=== PATIENT | female | born 1955 | race Caucasian/White ===

== ENCOUNTER 2018-06-07 22:27 | Emergency (ER) | payer OTHER ==
[~2018-06-07] VITALS: Ht 157.5 cm; Wt 90.7 kg
[~2018-06-07 22:27] MED LIST: CYCLOBENZAPRINE5 MG PO; TYLENOL WITH C1 EACH PO
[2018-06-07 22:41] LABS: BASOPHILS % 0.7 % (0.0-1.0); EOSINOPHILS # (AUTO) 0.1 (0.0-0.4); EOSINOPHILS % 2.7 % (0.0-6.0); HEMATOCRIT 39.1 % (34.2-44.1); HEMOGLOBIN 12.8 g/dL (12.0-16.0); LYMPHOCYTES # (AUTO) 1.4 (1.0-3.2); LYMPHOCYTES % 34.8 % (18.0-39.1); MEAN CORPUSCULAR HEMOGLOBIN 28.7 pg (28-32); MEAN CORPUSCULAR HGB CONC 32.7 g/dL (31-35); MEAN CORPUSCULAR VOLUME 87.7 fL (81-99); MONOCYTES # (AUTO) 0.2 (0.2-0.8); MONOCYTES % 5.8 % (4.4-11.3); NEUTROPHILS # (AUTO) 2.3 (2.1-6.9); NEUTROPHILS % 55.5 % (38.7-80.0); PLATELET COUNT 198 x10e3/uL (140-360); RED BLOOD COUNT 4.46 x10e6/uL (3.6-5.1); RED CELL DISTRIBUTION WIDTH 13.6 % (11.7-14.4)
[2018-06-07 22:57] LABS: ALBUMIN/GLOBULIN RATIO 1.1 (0.8-2.0); ANION GAP 18.3 mmol/L (8-16); CALCIUM 9.5 mg/dL (8.4-10.2); CREATININE, SERUM 1.49 mg/dL (0.57-1.11); POTASSIUM 4.3 mmol/L (3.5-5.1)
[2018-06-07] MEDS ORDERED: ZOFRAN4 MG SL (23:00)
--- NOTE | 2018-06-08 01:33 | NUR ---
PT REMAINS AAOX3, RESP EVEN AND UNLABORED, NAD NOTED; BG REASSESSED, 322, ER AWARE; CONTINUE TO MONITOR PT; PT/PTS SPOUSE UPDATED ON STATUS, DENIES ANY NEEDS OR COMPLAINTS AT THIS TIME
--- NOTE | 2018-06-08 04:35 | NUR ---
BS 102. INFORMED. ORDERED TO GIVE SNACK AT THIS TIME. APPLE JUICE, PUDDING AND APPLE SAUCE PROVIDED. PT AWAKE AND ALERT. PT EATING SNACK AT THIS TIME.
== END 2018-06-08 05:51 | disposition home or self-care (01) ==
LOC: ER 22:27
DX: T38.3X1A Poisoning by insulin and oral hypoglycemic [antidiabetic] drugs, accidental (unintentional), initial encounter (principal); E11.65 Type 2 diabetes mellitus with hyperglycemia; I10 Essential (primary) hypertension; E78.5 Hyperlipidemia, unspecified
CPT/HCPCS: 36415; 80053; 82948; 85025; 99283

== ENCOUNTER 2019-04-17 23:03 | Inpatient (IN) | payer OTHER ==
[~2019-04-17] VITALS: Ht 157.5 cm; Wt 78.5 kg
[~2019-04-17 23:03] MED LIST changes: +ZOFRAN4 MG SL
[2019-04-17] MEDS ORDERED: SODIUM CHLORIDE 0.9% 1000ML 1,000 ML IV STA (23:47)
[2019-04-18] VITALS (7 sets, daily range): BP systolic 117–158; BP diastolic 58–79
[2019-04-18] MEDS ORDERED: ONDANSETRON HCL INJ 2MG/ML 2ML 2 MG/ML VIAL ONE (00:18)
[2019-04-18] MEDS ORDERED: ONDANSETRON HCL INJ 2MG/ML 2ML 2 MG/ML VIAL IV STA (00:29)
[2019-04-18 00:52] LABS: BASOPHILS % 0.2 % (0.0-1.0); EOSINOPHILS # (AUTO) 0.1 (0.0-0.4); EOSINOPHILS % 2.1 % (0.0-6.0); HEMATOCRIT 40.7 % (34.2-44.1); HEMOGLOBIN 13.7 g/dL (12.0-16.0); LYMPHOCYTES # (AUTO) 0.3 (1.0-3.2); LYMPHOCYTES % 4.7 % (18.0-39.1); MEAN CORPUSCULAR HEMOGLOBIN 29.1 pg (28-32); MEAN CORPUSCULAR HGB CONC 33.7 g/dL (31-35); MEAN CORPUSCULAR VOLUME 86.6 fL (81-99); MONOCYTES # (AUTO) 0.3 (0.2-0.8); MONOCYTES % 4.7 % (4.4-11.3); NEUTROPHILS # (AUTO) 5.4 (2.1-6.9); PLATELET COUNT 188 x10e3/uL (140-360); RED CELL DISTRIBUTION WIDTH 12.2 % (11.7-14.4)
[2019-04-18 00:57] LABS: INR 0.86; PROTHROMBIN TIME 12.2 seconds (11.9-14.5)
[2019-04-18 00:58] LABS: PARTIAL THROMBOPLASTIN TIME 29.1 seconds (23.8-35.5)
[2019-04-18 01:13] LABS: ALANINE AMINOTRANSFERASE 8 IU/L (0-55); ALBUMIN 3.9 g/dL (3.5-5.0); ALBUMIN/GLOBULIN RATIO 1.1 (0.8-2.0); ALKALINE PHOSPHATASE 111 IU/L (40-150); ANION GAP 19.3 mmol/L (8-16); BLOOD UREA NITROGEN 17 mg/dL (7-26); BUN/CREATININE RATIO 11 (6-25); CALCIUM 9.9 mg/dL (8.4-10.2); CARBON DIOXIDE 27 mmol/L (22-29); CHLORIDE 92 mmol/L (98-107); CREATINE KINASE 20 IU/L (29-168); CREATININE, SERUM 1.59 mg/dL (0.57-1.11); EST GLOMERULAR FILTRATION RATE 33 ML/MIN (60-); MAGNESIUM 1.4 MG/DL (1.3-2.1); POTASSIUM 3.3 mmol/L (3.5-5.1); SODIUM 135 mmol/L (136-145)
--- NOTE | 2019-04-18 01:13 | NUR ---
DR. TORRES NOTIFIED AND AWARE OF CRITICAL LAB VALUE; LACTIC 5.2.
[2019-04-18] MEDS ORDERED: SODIUM CHLORIDE 0.9% 1000ML 1,000 ML IV STA (01:15)
[2019-04-18 01:23] LABS: GLUCOSE 686 mg/dL (74-118)
[2019-04-18 01:44] LABS: BILIRUBIN,URINE NEGATIVE (NEGATIVE); CLARITY,URINE CLEAR (CLEAR); COLOR,URINE YELLOW (YELLOW); KETONES,URINE NEGATIVE (NEGATIVE); LEUKOCYTE ESTERASE ,URINE NEGATIVE (NEGATIVE); NITRITE,URINE POSITIVE (NEGATIVE); PROTEIN,URINE DIPSTICK NEGATIVE (NEGATIVE); URINE UROBILINOGEN 0.2 mg/dL (0.2 - 1)
[2019-04-18 01:49] LABS: ABG PH 7.48 (7.31-7.41)
[2019-04-18 01:50] LABS: ABG HCO3 25 mmol/L (23-28); ABG PCO2 33 mmHg (41-51); ABG PO2 106 mmHg (80-105)
--- NOTE | 2019-04-18 01:50 | Diagnostic Imaging Report ---
EXAMINATION: CHEST SINGLE (PORTABLE) INDICATION: Altered mental status. COMPARISON: None FINDINGS: TUBES and LINES: None. LUNGS: Lungs are moderately inflated. There is no evidence of pneumonia or pulmonary edema. PLEURA: No pleural effusion or pneumothorax. HEART AND MEDIASTINUM: The cardiomediastinal silhouette is unremarkable. BONES AND SOFT TISSUES: No acute osseous abnormality. Partially seen cervical spine fixation hardware. UPPER ABDOMEN: No free air under the diaphragm. IMPRESSION: No acute radiographic abnormality. Signed by: Dr. Gonzalo Velazquez MD on 04/18/2019 1:46 AM
[2019-04-18] MEDS: CEFEPIME 2 GM/NS 0.9% 100 ML 100 ML IV SCH ×2 (02:00→13:30)
[2019-04-18 02:27] LABS: WBC,URINE (MAN) 21-50 /HPF (0-5)
[2019-04-18 02:28] LABS: BACTERIA,URINE MANY /HPF; EPITHELIAL CELLS,URINE MODERATE /LPF
[2019-04-18] MEDS ORDERED: INSULIN REGULAR, HUMAN 100 UNIT/1 ML 3ML VIAL IV ONE (02:30)
--- NOTE | 2019-04-18 02:32 | Diagnostic Imaging Report ---
EXAMINATION: Head CT without contrast. HISTORY:Altered mental status. COMPARISON:None. TECHNIQUE: Multidetector axial images were obtained from the foramen magnum to the vertex without contrast. The images were reconstructed using brain and bone algorithms. Thin section brain images were reformatted into coronal and sagittal planes. Dose modulation, iterative reconstruction, and/or weight based adjustment of the mA/kV was utilized to reduce the radiation dose to as low as reasonably achievable. Intravenous contrast: None IMAGE QUALITY: Acceptable. FINDINGS: Skull/scalp: No lytic or blastic. lesions. No surgical changes. Parenchyma: Nonspecific few, scattered supratentorial white matter hypodensity are likely related to small vessel ischemic changes. No acute hemorrhage, mass or acute major vascular territorial infarct. Arteries: No density suggestive of thrombosis. Atherosclerotic calcification in bilateral carotid siphon and V4 segment of the vertebral arteries. Dural sinuses: No abnormal density suggestive of thrombosis. Ventricles: No hydrocephalus or displacement. Extra-axial spaces: No abnormal density. Brain volume: Normal for age. Craniocervical junction: No mass, Chiari malformation, or basilar invagination. Sella: No mass. Paranasal/mastoid sinuses: Imaged portions unremarkable. IMPRESSION: No acute intracranial abnormality. Mild supratentorial white matter microvascular ischemic changes. Signed by: Dr. Skye Harris M.D. on 04/18/2019 2:29 AM
[2019-04-18 03:12] LABS: B-TYPE NATRIURETIC PEPTIDE2 43.9 pg/mL (0-100)
[2019-04-18] MEDS ORDERED: DEXTROSE 50% SYRINGE 50 ML IV PRN (03:45)
[2019-04-18] MEDS ORDERED: KCL 20MEQ/.9 SOD CHL 1,000 ML IV ONE (03:45)
--- OUTSIDE RECORDS SUMMARY | 2019-04-18 03:54 | XMS REPORT ---
Author [facility] Address Unknown Phone Unavailable Care Team Providers Care Field Sales Agent Name Role Phone Hernesto TORRES Unavailable Unavailable Problems This patient has no known problems. Allergies, Adverse Reactions, Alerts This patient has no known allergies or adverse reactions. Medications This patient has no known medications. Results Test Description Test Time Test Comments Text Results Atomic Results Result Comments CT BRAIN WO 2019-04-18 02:26:00 [facility] [address] [address] Patient Name: PAOLA STILES MR #: [id number] : 1955 Age/Sex: 64/F Req #: [id number] Adm Physician: Ordered by: YOEL TORRES MD Report #: [id number] Location: ER Room/Bed: Procedure: [id number] CT/CT BRAIN WO Exam Date: 04/18/19 Exam Time: 0120 REPORT STATUS: Signed EXAMINATION: Head CT without contrast. HISTORY:Altered mental status. COMPARISON:None. TECHNIQUE: Multidetector axial images were obtained from the foramen magnum to the vertex without contrast. The images were reconstructed using brain and bone algorithms. Thin section brain images were reformatted into coronal and sagittal planes. Dose modulation, iterative reconstruction, and/or weight based adjustment of the mA/kV was utilized to reduce the radiation dose to as low as reasonably achievable. Intravenous contrast: None IMAGE QUALITY: Acceptable. FINDINGS: Skull/scalp: No lytic or blastic. lesions. No surgical changes. Parenchyma: Nonspecific few, scattered supratentorial white matter hypodensity are likely related to small vessel ischemic changes. No acute hemorrhage, mass or acute major vascular territorial infarct. Arteries: No density suggestive of thrombosis. Atherosclerotic calcification in bilateral carotid siphon and V4 segment of the vertebral arteries. Dural sinuses: No abnormal density suggestive of thrombosis. Ventricles: No hydrocephalus or displacement. Extra-axial spaces: No abnormal density. Brain volume: Normal for age. Craniocervical junction: No mass, Chiari malformation, or basilar invagination. Sella: No mass. Paranasal/mastoid sinuses: Imaged portions unremarkable. IMPRESSION: No acute intracranial abnormality. Mild supratentorial white matter microvascular ischemic changes. Signed by: Dr. Skye Harris M.D. on 04/18/2019 2:29 AM Dictated By: SKYE HARRIS MD 8 Transcribed By: ELDER on 04/18/19228 COPY TO: YOEL TORRES MD CHEST SINGLE (PORTABLE) 2019-04-18 01:45:00 [address] [address] Patient Name: PAOLA STILES MR #: [id number] : 1955 Age/Sex: 64/F Req #: [id number] Adm Physician: Ordered by: YOEL TORRES MD Report #: [id number] Location: ER Room/Bed: Procedure: [id number] DX/CHEST SINGLE (PORTABLE) Exam Date: 04/18/19 Exam Time: 0120 REPORT STATUS: Signed EXAMINATION: CHEST SINGLE (PORTABLE) INDICAT ION: Altered mental status. COMPARISON: None FINDINGS: TUBES and LINES: None. LUNGS: Lungs are moderately inflated. There is no evidence of pneumonia or pulmonary edema. PLEURA: No pleural effusion or pneumothorax. HEART AND MEDIASTINUM: The cardiomediastinal silhouette is unremarkable. BONES AND SOFT TISSUES: No acute osseous abnormality. Partially seen cervical spine fixation hardware. UPPER ABDOMEN: No free air under the diaphragm. IMPRESSION: No acute radiographic abnormality. Signed by: Dr. Mp Stone MD on 04/18/2019 1:46 AM Dictated By: MP STONE MD 5 Transcribed By: ELDER on 04/18/19145 COPY TO: YOEL TORRES MD
--- NOTE | 2019-04-18 05:09 | NUR ---
RECEIVED PATIENT FROM ED. PATIENT A&OX3. HEADACHE REPORTED 03/19. LUNG SOUNDS CLEAR. BOWEL SOUNDS ACTIVE, HAD BM WHEN GOT TO ROOM. PATIENT HAS L BKA, PERSONAL WHEELCHAIR AT BEDSIDE, PATIENT CAN TRANSFER INDEPENDENTLY. L AC 20G IV ASYMPTOMATIC, INTACT, AND PATENT, RUNNING NS WITH 20 MEQ OF KCL AT 125 ML/HR. DAUGHTER AT BEDSIDE. NO S&S OF DISTRESS NOTED. BED LOCKED IN LOWEST POSITION, SIDE RAILS UPX2, CALL LIGHT IN REACH.
[2019-04-18] MEDS ORDERED: INFLUENZA VIRUS VAC SPLIT INJ 0.5 ML SYR IM SCH (05:37)
[2019-04-18 07:20] LABS: CREATINE KINASE 13 IU/L (29-168)
[2019-04-18] MEDS: ONDANSETRON HCL INJ 2MG/ML 2ML 2 MG/ML VIAL IV PRN (07:25)
[2019-04-18] MEDS: INSULIN LISPRO 100 UNIT/1 ML 3ML VIAL SQ SCH ×5 (07:30→20:34)
--- NOTE | 2019-04-18 07:33 | NUR ---
MEDICATED PER MD ORDER FOR NAUSEA, PT C/O HEADACHE SINCE ARRIVAL TO FLOOR, NO MEDICATION ON EMAR, TELEPHONED LAKISHA VALLEJO, ORDERS NOTED
[2019-04-18] MEDS ORDERED: ACETAMINOPHEN 325 MG TAB ONE (07:44)
[2019-04-18] MEDS: ACETAMINOPHEN 325 MG TAB PO PRN (07:50)
--- NOTE | 2019-04-18 09:53 | NUR ---
PT STATES SHE CANNOT REMEMBER WHAT HOME MEDICATIONS SHE TAKES, FAMILY IS BRINGING A LIST WHEN THEY COME BACK TO HOSPITAL, PT REPORTS HEADACHE NOT IMPROVED, REFUSED INSULIN AT THIS TIME, DUE TO NAUSEA WHICH CAUSED HER TO NOT EAT MUCH BREAKFAST, WITH STANDBY ASSIST AND USE OF PERSONAL WC, PT OOB TO BR, CALL STRING WITHIN REACH
[2019-04-18] MEDS ORDERED: ACETAMINOPHEN 325 MG TAB PO PRN (10:15)
[2019-04-18] MEDS ORDERED: HYDRALAZINE HCL 20 MG/ML VIAL IV PRN (10:15)
[2019-04-18] MEDS ORDERED: MELATONIN 5 MG TABLET PO PRN ×2 (10:15→10:45)
[2019-04-18] MEDS ORDERED: SODIUM CHLORIDE 0.9% 1000ML 1,000 ML IV SCH (10:30)
--- NOTE | 2019-04-18 10:30 | NUR ---
GENEVIEVE, MANAGER OF MANUFACTURING WITH MD GRIFFITH INTO SEE PT, DISCUSSED POC
[2019-04-18] MEDS ORDERED: LOSARTAN POTAS100 MG PO (10:42)
[2019-04-18] MEDS ORDERED: ACETAMIN/BUTALBITAL/CAFFEINE TAB PO ONE (11:00)
[2019-04-18] MEDS: LOSARTAN POTASSIUM 25 MG TAB PO SCH (11:16)
--- NOTE | 2019-04-18 16:13 | NUR ---
MD BATES INTO SEE PT, DISCUSSED POC, MD BATES EDUCATED PT THAT FAMILY IS TO BRING IN HOME INSULIN AND MAY CHANGE TOMORROW BUT TO CONTINUE SS FOR NOW
--- NOTE | 2019-04-18 16:18 | Consultation ---
DATE OF CONSULTATION: 04/18/2019 Endocrine Consultation This is a patient of Dr. Cheney. Thank you very much for referring this patient. HISTORY OF PRESENT ILLNESS: This is a 64-year-old female, who is very well known to me from her previous followups. The patient has diabetes mellitus type 2 for almost 20 years and she is taking U-500 insulin, 50, 50, and 20 with each meal. She is on U-500 insulin pen. She has below-knee amputation on the left side. She also has history of hypertension. The patient was doing all right. She started having some nausea, vomiting, and at the time of admission, her blood sugar was 686, and anion gap was 19.3. PHYSICAL EXAMINATION: GENERAL: Today, the patient is alert, awake, little bit apprehensive. VITAL SIGNS: Heart rate is around 80, blood pressure is 130/80 mmHg. HEENT: Essentially unremarkable. Thyroid is palpable. Clinically, she is near euthyroid. CHEST: Bilateral vesicular breathing. No rales. CARDIOVASCULAR: First and second heart sounds. There is no 3rd or 4th heart sounds. There is ejection systolic murmur grade 2/6. 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 She is status post below-knee amputation on the left side. CLINICAL IMPRESSION: Diabetes mellitus type 2, uncontrolled with complication, diabetic ketoacidosis, dehydration, status post below knee amputation, and hypertension. PLAN: At this time is to get her back on U-500 insulin for now since her oral intake is low. Monitor the blood sugars closely. Thanks again for referring this patient. I will be following this patient with you. MD SAI Vega/KOLE /[id number] TALISHA
[2019-04-18] MEDS ORDERED: LIPITOR40 MG PO (16:20)
[2019-04-18] MEDS ORDERED: METFORMIN HCL500 MG PO (16:20)
[2019-04-18] MEDS ORDERED: METHOCARBAMOL750 MG PO (16:20)
[2019-04-18] MEDS ORDERED: OMEPRAZOLE40 MG PO (16:20)
[2019-04-18] MEDS ORDERED: SERTRALINE HCL50 MG PO (16:20)
[2019-04-18] MEDS ORDERED: ASPIR 8181 MG PO (16:20)
[2019-04-18] MEDS ORDERED: GABAPENTIN100 MG PO (16:20)
[2019-04-18] MEDS ORDERED: LASIX20 MG PO (16:20)
[2019-04-18 16:24] LABS: CREATINE KINASE 16 IU/L (29-168)
[2019-04-18] MEDS ORDERED: METHOCARBAMOL 500 MG TAB PO PRN (16:30)
[2019-04-18] MEDS: FAMOTIDINE 20 MG TAB PO SCH (17:30)
--- NOTE | 2019-04-18 19:00 | NUR ---
RECEIVED PATIENT IN BEDSIDE REPORT. PATIENT RESTING IN BED AT THIS TIME, FAMILY MEMBERS PRESENT. REPORTS HEADACHE IS 4/10, WILL MEDICATE. L AC 20G IV ASYMPTOMATIC, INTACT, AND PATENT, RUNNING NS @ 50ML/HR. NO OTHER S&S OF DISTRESS NOTED. BED LOCKED IN LOWEST POSITION, SIDE RAILS UPX2, CALL LIGHT IN REACH.
[2019-04-18] MEDS: ATORVASTATIN 40 MG TAB PO SCH (19:31)
[2019-04-18] MEDS: ACETAMINOPHEN/CODEINE 300MG - 30MG TAB PO PRN (19:32)
[2019-04-18] MEDS: GABAPENTIN 100 MG CAP PO SCH (19:32)
[2019-04-18] MEDS ORDERED: INSULIN GLARGINE 100 UNITS/ML VIAL SQ SCH (21:00)
[2019-04-19] VITALS (8 sets, daily range): BP systolic 98–136; BP diastolic 51–80
[2019-04-19 01:52] LABS: BASOPHILS % 0.5 % (0.0-1.0); EOSINOPHILS # (AUTO) 0.1 (0.0-0.4); EOSINOPHILS % 1.6 % (0.0-6.0); HEMATOCRIT 35.2 % (34.2-44.1); HEMOGLOBIN 11.9 g/dL (12.0-16.0); LYMPHOCYTES # (AUTO) 1.6 (1.0-3.2); LYMPHOCYTES % 36.2 % (18.0-39.1); MEAN CORPUSCULAR HEMOGLOBIN 29.5 pg (28-32); MEAN CORPUSCULAR HGB CONC 33.8 g/dL (31-35); MEAN CORPUSCULAR VOLUME 87.3 fL (81-99); MONOCYTES # (AUTO) 0.5 (0.2-0.8); NEUTROPHILS # (AUTO) 2.2 (2.1-6.9); NEUTROPHILS % 50.2 % (38.7-80.0); PLATELET COUNT 181 x10e3/uL (140-360); RED BLOOD COUNT 4.03 x10e6/uL (3.6-5.1); RED CELL DISTRIBUTION WIDTH 12.5 % (11.7-14.4)
[2019-04-19 01:55] LABS: ALANINE AMINOTRANSFERASE 6 IU/L (0-55); ALBUMIN 2.9 g/dL (3.5-5.0); ALKALINE PHOSPHATASE 74 IU/L (40-150); ANION GAP 11.2 mmol/L (8-16); BLOOD UREA NITROGEN 11 mg/dL (7-26); BUN/CREATININE RATIO 15 (6-25); CALCIUM 8.8 mg/dL (8.4-10.2); CARBON DIOXIDE 26 mmol/L (22-29); CHLORIDE 108 mmol/L (98-107); CREATININE, SERUM 0.75 mg/dL (0.57-1.11); EST GLOMERULAR FILTRATION RATE > 60 ML/MIN (60-); GLUCOSE 136 mg/dL (74-118); POTASSIUM 3.2 mmol/L (3.5-5.1)
[2019-04-19 01:56] LABS: SODIUM 142 mmol/L (136-145)
[2019-04-19] MEDS: CEFEPIME 2 GM/NS 0.9% 100 ML 100 ML IV SCH ×2 (01:57→14:17)
[2019-04-19] MEDS: ACETAMINOPHEN/CODEINE 300MG - 30MG TAB PO PRN (05:22)
[2019-04-19] MEDS ORDERED: POTASSIUM CHLORIDE 20 MEQ TAB CR PO STA (07:19)
[2019-04-19] MEDS: INSULIN LISPRO 100 UNIT/1 ML 3ML VIAL SQ SCH ×7 (07:30→21:13)
[2019-04-19] MEDS: FAMOTIDINE 20 MG TAB PO SCH ×2 (09:09→16:25)
[2019-04-19] MEDS: FUROSEMIDE 20 MG TAB PO SCH (09:10)
[2019-04-19] MEDS: LOSARTAN POTASSIUM 25 MG TAB PO SCH (09:10)
[2019-04-19] MEDS: GABAPENTIN 100 MG CAP PO SCH ×3 (09:10→21:13)
[2019-04-19] MEDS: SERTRALINE HCL 50 MG TAB PO SCH (09:10)
[2019-04-19] MEDS: ACETAMINOPHEN 325 MG TAB PO PRN (19:25)
[2019-04-19] MEDS ORDERED: INSULIN GLARGINE 100 UNITS/ML VIAL SQ SCH (21:00)
[2019-04-19] MEDS: ATORVASTATIN 40 MG TAB PO SCH (21:13)
[2019-04-20] VITALS: BP 129/59
[2019-04-20] MEDS: CEFEPIME 2 GM/NS 0.9% 100 ML 100 ML IV SCH ×2 (01:37→13:30)
[2019-04-20 04:00] VITALS: BP 150/69
[2019-04-20] MEDS: ONDANSETRON HCL INJ 2MG/ML 2ML 2 MG/ML VIAL IV PRN (07:05)
[2019-04-20] MEDS ORDERED: CEFDINIR300 MG PO (07:13)
[2019-04-20 07:20] VITALS: BP 127/60
[2019-04-20 07:28] LABS: BASOPHILS % 0.6 % (0.0-1.0); EOSINOPHILS # (AUTO) 0.1 (0.0-0.4); EOSINOPHILS % 1.7 % (0.0-6.0); HEMOGLOBIN 12.3 g/dL (12.0-16.0); LYMPHOCYTES # (AUTO) 1.5 (1.0-3.2); LYMPHOCYTES % 42.4 % (18.0-39.1); MEAN CORPUSCULAR HEMOGLOBIN 29.1 pg (28-32); MEAN CORPUSCULAR HGB CONC 33.2 g/dL (31-35); MEAN CORPUSCULAR VOLUME 87.7 fL (81-99); MONOCYTES # (AUTO) 0.4 (0.2-0.8); MONOCYTES % 9.8 % (4.4-11.3); NEUTROPHILS # (AUTO) 1.6 (2.1-6.9); NEUTROPHILS % 45.2 % (38.7-80.0); PLATELET COUNT 188 x10e3/uL (140-360); RED BLOOD COUNT 4.22 x10e6/uL (3.6-5.1); RED CELL DISTRIBUTION WIDTH 12.5 % (11.7-14.4)
[2019-04-20 07:34] VITALS: BP 127/60
[2019-04-20 07:43] LABS: ANION GAP 8.9 mmol/L (8-16); BLOOD UREA NITROGEN 11 mg/dL (7-26); BUN/CREATININE RATIO 14 (6-25); CARBON DIOXIDE 32 mmol/L (22-29); CHLORIDE 101 mmol/L (98-107); CREATININE, SERUM 0.76 mg/dL (0.57-1.11); EST GLOMERULAR FILTRATION RATE > 60 ML/MIN (60-); GLUCOSE 318 mg/dL (74-118); POTASSIUM 3.9 mmol/L (3.5-5.1); SODIUM 138 mmol/L (136-145)
[2019-04-20] MEDS: FAMOTIDINE 20 MG TAB PO SCH (07:45)
[2019-04-20] MEDS: FUROSEMIDE 20 MG TAB PO SCH (08:22)
[2019-04-20] MEDS: LOSARTAN POTASSIUM 25 MG TAB PO SCH (08:22)
[2019-04-20] MEDS: SERTRALINE HCL 50 MG TAB PO SCH (08:22)
[2019-04-20] MEDS: GABAPENTIN 100 MG CAP PO SCH (08:22)
[2019-04-20] MEDS: INSULIN LISPRO 100 UNIT/1 ML 3ML VIAL SQ SCH ×4 (08:27→11:45)
[2019-04-20] MEDS ORDERED: POTASSIUM CHLORIDE 20 MEQ TAB CR PO SCH (09:00)
[2019-04-20] MEDS: ACETAMINOPHEN/CODEINE 300MG - 30MG TAB PO PRN (11:24)
[2019-04-20 11:44] VITALS: BP 126/58
[2019-04-20] MEDS ORDERED: [UNRECOGNIZED DRUG - OTHER] SC (14:57)
[2019-04-20] MEDS ORDERED: INFLUENZA VIRUS VAC SPLIT INJ 0.5 ML SYR IM ONE (15:15)
--- NOTE | 2019-04-20 15:18 | NUR ---
DISCHARGE INSTRUCTIONS AND PRESCRIPTIONS GIVEN IV DC PRESSURE DRESSING APPLIED AND TAPED FLU SHOT GIVEN PT IS READY FOR DC WAITING ON RIDE
--- NOTE | 2019-04-20 15:49 | NUR ---
PT OFF UNIT TO HOME AT THIS TIME
--- NOTE | 2019-04-21 13:19 | Discharge Summary ---
ADMISSION DIAGNOSES: 1. Diabetic ketoacidosis. 2. Urinary tract infection, present on admission. 3. Hypertension. 4. Type 2 diabetes. 5. Hyperlipidemia. 6. Gastroesophageal reflux disease. DISCHARGE DIAGNOSES: 1. Diabetic ketoacidosis. 2. Urinary tract infection, present on admission. 3. Hypertension. 4. Type 2 diabetes. 5. Hyperlipidemia. 6. Gastroesophageal reflux disease. 7. Escherichia coli of urine, present on admission. HISTORY: Hypertension, type 2 diabetes, hyperlipidemia, and GERD. SURGICAL HISTORY: Left BKA, cholecystectomy, tubal ligation, neck fusion, and bilateral cataract surgery. FAMILY HISTORY: Noncontributory. SOCIAL HISTORY: Noncontributory. HOSPITAL COURSE: A 64-year-old female admits with complaints of blood sugar over 600 with associated shaking, AMS, and lethargy that began around 11 p.m. She denies diarrhea or fever. She had associated nausea and vomiting. On admission, the patient's blood sugar was over 600. Chest x-ray was negative. CT of the brain was negative. A1c was found to be 11.2. Blood cultures were negative and urine culture came back positive for E coli. Endocrinology was consulted, changed the patient's diabetes medicine to Humulin 50 units t.i.d. only. She will discharge home with new prescription for insulin as well as Omnicef x4 days. The patient also had an echo that showed an EF of 60% to 65%. The patient and daughter understand discharge instructions and agrees to plan. Vital signs stable. The patient is afebrile. Dictated by Jennifer Soni NP MD GITA Corbin/MODL /[id number]
== END 2019-04-20 15:40 | disposition home or self-care (01) | DRG 638 ==
LOC: ER 23:03 → ERHOLD 04-18 03:51 → MED/SURG 04-18 05:11
PROVIDERS: ADMIT Internal Medicine; ATTEND Internal Medicine
DX: E11.10 Type 2 diabetes mellitus with ketoacidosis without coma (principal); N39.0 Urinary tract infection, site not specified; E78.5 Hyperlipidemia, unspecified; K21.9 Gastro-esophageal reflux disease without esophagitis; B96.20 Unspecified Escherichia coli [E. coli] as the cause of diseases classified elsewhere; Z89.512 Acquired absence of left leg below knee; Z79.4 Long term (current) use of insulin
CPT/HCPCS: 36415; 36600; 70450; 71045; 80048; 80053; 81001; 82550; 82553; 82805; 82948; 83036; 83605; 83735; 83880; 84484; 85025; 85610; 85730; 87040; 87086; 87186; 93005; 93306; 96372; 99284; J1815; J2405; J7030

== ENCOUNTER 2019-08-22 22:39 | Observation (INO) | payer OTHER ==
[~2019-08-22] VITALS: Ht 157.5 cm; Wt 78.5 kg
[~2019-08-22 22:39] MED LIST changes: +ASPIR 8181 MG PO; +CEFDINIR300 MG PO; +GABAPENTIN100 MG PO; +LASIX20 MG PO; +LIPITOR40 MG PO; +LOSARTAN POTAS100 MG PO; +METFORMIN HCL500 MG PO; +METHOCARBAMOL750 MG PO; +OMEPRAZOLE40 MG PO; +SERTRALINE HCL50 MG PO; +[UNRECOGNIZED DRUG - OTHER] SC
[2019-08-22] MEDS ORDERED: MORPHINE SULFATE INJ 4 MG/ML INJ 1ML IV STA (23:17)
[2019-08-22 23:25] LABS: BASOPHILS % 0.3 % (0.0-1.0); EOSINOPHILS % 0.5 % (0.0-6.0); HEMATOCRIT 43.1 % (34.2-44.1); HEMOGLOBIN 15.1 g/dL (12.0-16.0); LYMPHOCYTES # (AUTO) 1.2 (1.0-3.2); LYMPHOCYTES % 18.3 % (18.0-39.1); MEAN CORPUSCULAR HEMOGLOBIN 29.6 pg (28-32); MEAN CORPUSCULAR VOLUME 84.5 fL (81-99); MONOCYTES # (AUTO) 0.3 (0.2-0.8); MONOCYTES % 4.4 % (4.4-11.3); PLATELET COUNT 226 x10e3/uL (140-360); RED CELL DISTRIBUTION WIDTH 11.9 % (11.7-14.4)
[2019-08-22] MEDS ORDERED: ONDANSETRON HCL INJ 2MG/ML 2ML 2 MG/ML VIAL IV STA (23:25)
[2019-08-22 23:39] LABS: CLARITY,URINE CLEAR (CLEAR); COLOR,URINE YELLOW (YELLOW); LEUKOCYTE ESTERASE ,URINE NEGATIVE (NEGATIVE)
[2019-08-22 23:40] LABS: BILIRUBIN,URINE NEGATIVE (NEGATIVE); KETONES,URINE 1+ (NEGATIVE); NITRITE,URINE NEGATIVE (NEGATIVE); PROTEIN,URINE DIPSTICK TRACE (NEGATIVE); URINE UROBILINOGEN 0.2 mg/dL (0.2 - 1)
--- NOTE | 2019-08-22 23:43 | NUR ---
Patient noted to have mix of dark blood and bright red blood in vomit. Md notified.
[2019-08-22 23:45] LABS: BACTERIA,URINE MANY /HPF; EPITHELIAL CELLS,URINE FEW /LPF; RBC,URINE 0-5 /HPF (0-5); WBC,URINE (MAN) 21-50 /HPF (0-5)
[2019-08-22 23:46] LABS: AMYLASE 65 U/L (25-125); LIPASE 13 U/L (8-78)
[2019-08-22 23:48] LABS: ALBUMIN 4.2 g/dL (3.5-5.0); ALBUMIN/GLOBULIN RATIO 1.2 (0.8-2.0); ANION GAP 13.7 mmol/L (8-16); CREATININE, SERUM 1.1 mg/dL (0.57-1.11); POTASSIUM 3.7 mmol/L (3.5-5.1)
[2019-08-22] MEDS ORDERED: DIATRIZOATE MEGL/DIATRIZOA SOD 30 ML BTL PO ONE (23:49)
[2019-08-22] MEDS ORDERED: SODIUM CHLORIDE 0.9% 1000ML 1,000 ML IV STA (23:57)
[2019-08-22 23:59] LABS: INR 0.89; PARTIAL THROMBOPLASTIN TIME 28.9 seconds (23.8-35.5); PROTHROMBIN TIME 12.6 seconds (11.9-14.5)
[2019-08-23] MEDS ORDERED: INSULIN REGULAR, HUMAN 100 UNIT/1 ML 3ML VIAL SQ ONE
[2019-08-23] MEDS ORDERED: PROMETHAZINE 12.5MG/ NACL 0.9% 12.5 MG/50 ML BAG IV ONE
[2019-08-23] MEDS ORDERED: INSULIN REGULAR, HUMAN 100 UNIT/1 ML 3ML VIAL IV ONE
--- NOTE | 2019-08-23 00:05 | NUR ---
Patient vomited multiple times. notified.
--- NOTE | 2019-08-23 02:48 | Diagnostic Imaging Report ---
EXAM: CT Abdomen and Pelvis WITHOUT contrast INDICATION: Upper abdominal pain with nausea and vomiting. COMPARISON: None. TECHNIQUE: Abdomen and pelvis were scanned utilizing a multidetector helical scanner from the lung base to the pubic symphysis without administration of IV contrast. Absence of intravenous contrast decreases sensitivity for detection of focal lesions and vascular pathology. Coronal and sagittal reformations were obtained. Routine protocol was performed. IV CONTRAST: None. ORAL CONTRAST: Gastrografin RADIATION DOSE: Total DLP: 727 mGy*cm Estimated effective dose: (DLP x 0.015 x size factor) mSv COMPLICATIONS: None FINDINGS: LINES and TUBES: None. LOWER THORAX: Coronary atherosclerosis. HEPATOBILIARY: No focal hepatic lesions. No biliary ductal dilation. GALLBLADDER: Status post cholecystectomy. SPLEEN: No splenomegaly. PANCREAS: No focal masses or ductal dilatation. Fatty atrophy. ADRENALS: No adrenal nodules KIDNEYS/URETERS: Bilateral perinephric stranding. No evidence of stone, hydronephrosis, or mass. GI TRACT: No abnormal distention, wall thickening, or evidence of bowel obstruction. Appendix is normal. Small hiatal hernia with mild distal esophageal thickening. PELVIC ORGANS/BLADDER: Unremarkable. LYMPH NODES: No lymphadenopathy. 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 Mild atherosclerotic calcifications in the abdominal aorta. PERITONEUM / RETROPERITONEUM: No free air or fluid. BONES: Unremarkable. SOFT TISSUES: Unremarkable. IMPRESSION: Bilateral mild perinephric stranding, which is nonspecific, but may represent infectious or inflammatory etiology in the appropriate clinical setting. Small hiatal hernia with mild distal esophageal wall thickening, which may represent esophagitis in the setting of reflux. Coronary atherosclerosis. Signed by: Dr. Gonzalo Velazquez MD on 08/23/2019 2:44 AM
[2019-08-23] MEDS ORDERED: KETOROLAC TROMETHAMINE 30 MG/ML VIAL IV STA (03:05)
[2019-08-23] MEDS ORDERED: SODIUM CHLORIDE 0.9% 1000ML 1,000 ML ONE (03:11)
[2019-08-23] MEDS: SODIUM CHLORIDE 0.9% 1000ML 1,000 ML IV SCH ×5 (03:12→22:18)
[2019-08-23] MEDS: CEFTRIAXONE SOD 1 GRAM/0.9% SOD CHL 50ML BAG IV SCH (03:28)
[2019-08-23] MEDS ORDERED: ACETAMINOPHEN 325 MG TAB PO PRN (04:00)
[2019-08-23] MEDS ORDERED: DEXTROSE 50% SYRINGE 50 ML IV PRN (04:00)
[2019-08-23] MEDS: ONDANSETRON HCL INJ 2MG/ML 2ML 2 MG/ML VIAL IV PRN ×3 (06:03→19:43)
--- NOTE | 2019-08-23 06:43 | NUR ---
Report to VINNY Monahan
[2019-08-23] MEDS: INSULIN REGULAR, HUMAN 100 UNIT/1 ML 3ML VIAL SQ SCH ×5 (07:57→22:19)
[2019-08-23] MEDS: MORPHINE SULFATE INJ 4 MG/ML INJ 1ML IV PRN ×2 (07:58→11:54)
[2019-08-23 10:29] VITALS: BP 139/63
[2019-08-23 11:35] VITALS: BP 139/63
[2019-08-23] MEDS ORDERED: ULTRAM 50MG50 MG PO (15:07)
[2019-08-23] MEDS ORDERED: HUMULIN R100 UNIT/2 SC ×3 (15:07)
[2019-08-23] MEDS ORDERED: PANTOPRAZOLE SO40 MG PO (15:07)
[2019-08-23 16:33] VITALS: BP 145/65
[2019-08-23] MEDS ORDERED: HYDROCODONE/APAP 5MG-325MG TAB PO PRN (18:00)
[2019-08-23] MEDS ORDERED: HYDRALAZINE HCL 20 MG/ML VIAL IV PRN (18:00)
--- NOTE | 2019-08-23 18:20 | NUR ---
Blood sugar responding well to treatment, no distress, able to self transfer bed to w/c, medicated for pain, appetite good, no N/V, afebrile, call light within reach, will monitor.
[2019-08-23] MEDS ORDERED: ACETAMINOPHEN/CODEINE 300MG - 30MG TAB PO PRN (18:30)
[2019-08-23] MEDS ORDERED: METHOCARBAMOL 500 MG TAB PO PRN (18:30)
[2019-08-23] MEDS ORDERED: TRAMADOL HCL 50 MG TAB PO SCH (18:30)
--- NOTE | 2019-08-23 19:25 | NUR ---
received report from day nurse. patient is resting comfortably in the bed. bed is in the lowest position and call light is within reach. will continue to monitor patient.
[2019-08-23 20:00] VITALS: BP 174/75
[2019-08-23] MEDS ORDERED: TRAMADOL HCL 50 MG TAB PO PRN (20:30)
[2019-08-23] MEDS ORDERED: INSULIN REGULAR SC SCH (21:00)
[2019-08-23] MEDS: ATORVASTATIN 40 MG TAB PO SCH (21:58)
[2019-08-23] MEDS: GABAPENTIN 100 MG CAP PO SCH (21:58)
[2019-08-23] MEDS: MORPHINE SULFATE 2 MG/ML SYR 1ML IV PRN (22:30)
[2019-08-23 22:34] VITALS: BP 174/75
[2019-08-24] VITALS (9 sets, daily range): BP systolic 109–138; BP diastolic 52–65
[2019-08-24] MEDS: CEFTRIAXONE SOD 1 GRAM/0.9% SOD CHL 50ML BAG IV SCH (02:21)
[2019-08-24 04:04] LABS: BASOPHILS % 0.3 % (0.0-1.0); EOSINOPHILS # (AUTO) 0.1 (0.0-0.4); EOSINOPHILS % 1.7 % (0.0-6.0); HEMATOCRIT 37.4 % (34.2-44.1); HEMOGLOBIN 12.5 g/dL (12.0-16.0); LYMPHOCYTES # (AUTO) 2.5 (1.0-3.2); LYMPHOCYTES % 42.2 % (18.0-39.1); MEAN CORPUSCULAR HEMOGLOBIN 29.1 pg (28-32); MEAN CORPUSCULAR HGB CONC 33.4 g/dL (31-35); MONOCYTES # (AUTO) 0.3 (0.2-0.8); MONOCYTES % 5.3 % (4.4-11.3); NEUTROPHILS % 50.3 % (38.7-80.0); PLATELET COUNT 191 x10e3/uL (140-360); RED CELL DISTRIBUTION WIDTH 12.5 % (11.7-14.4)
[2019-08-24 04:21] LABS: ALANINE AMINOTRANSFERASE 7 IU/L (0-55); ALBUMIN/GLOBULIN RATIO 1.2 (0.8-2.0); ALKALINE PHOSPHATASE 76 IU/L (40-150); ANION GAP 7.3 mmol/L (8-16); BLOOD UREA NITROGEN 20 mg/dL (7-26); BUN/CREATININE RATIO 25 (6-25); CALCIUM 8.6 mg/dL (8.4-10.2); CARBON DIOXIDE 29 mmol/L (22-29); CHLORIDE 109 mmol/L (98-107); CHOL/HDL RATIO 5.2 (3.0-3.6); CHOLESTEROL 166 MD/DL (0-199); CREATININE, SERUM 0.79 mg/dL (0.57-1.11); EST GLOMERULAR FILTRATION RATE > 60 ML/MIN (60-); GLUCOSE 148 mg/dL (74-118); HDL CHOLESTEROL 32 MG/DL (40-60); LDL CHOLESTEROL 105 MG/DL (60-130); MAGNESIUM 1.6 MG/DL (1.3-2.1); PHOSPHORUS 2.9 MG/DL (2.3-4.7); POTASSIUM 3.3 mmol/L (3.5-5.1); SODIUM 142 mmol/L (136-145); TRIGLYCERIDES 145 MG/DL (0-149)
[2019-08-24 04:43] LABS: THYROID STIMULATING HORMONE 3.016 uIU/mL (0.350-4.940)
--- NOTE | 2019-08-24 07:05 | NUR ---
report given to day nurse. patient is resting comfortably in bed. bed is in lowest position and call light is within reach.
--- NOTE | 2019-08-24 07:10 | NUR ---
RCD PT AT BED PT IS ALERT AND ORIENTED PT RESTING ON BED IV PATENT BY SALINE FLUSH BED LOW AND LOCKED CALL LIGHT IN REACH
[2019-08-24] MEDS: INSULIN REGULAR, HUMAN 100 UNIT/1 ML 3ML VIAL SQ SCH ×7 (07:30→20:00)
[2019-08-24] MEDS ORDERED: PANTOPRAZOLE SOD 40 MG TABEC PO SCH (07:30)
[2019-08-24] MEDS ORDERED: FAMOTIDINE 20 MG TAB PO SCH (07:30)
[2019-08-24] MEDS: MORPHINE SULFATE 2 MG/ML SYR 1ML IV PRN ×3 (08:20→19:41)
[2019-08-24] MEDS: ONDANSETRON HCL INJ 2MG/ML 2ML 2 MG/ML VIAL IV PRN ×3 (08:20→19:41)
[2019-08-24] MEDS: LOSARTAN POTASSIUM 25 MG TAB PO SCH (09:00)
[2019-08-24] MEDS ORDERED: CEFDINIR 300 MG PO SCH (09:00)
[2019-08-24] MEDS: GABAPENTIN 100 MG CAP PO SCH ×3 (09:00→21:38)
[2019-08-24] MEDS: ASPIRIN 81 MG CHEW TAB PO SCH (09:00)
[2019-08-24] MEDS: ASCORBIC ACID 500 MG TAB PO SCH ×2 (09:00→17:00)
[2019-08-24] MEDS: SERTRALINE HCL 50 MG TAB PO SCH (09:00)
[2019-08-24] MEDS ORDERED: POTASSIUM CHLORIDE 20 MEQ TAB CR PO ONE (09:50)
--- NOTE | 2019-08-24 12:21 | NUR ---
Discontinuing PT services since patient is Mod I in functional mobility. Thank you Addendum: 08/24/19 at 1221 by Jean stephen PT Amended: Links added.
--- NOTE | 2019-08-24 19:01 | NUR ---
PT RESTING ON BED BED SIDE REPORT GIVEN TO ONCOMING NURSE
[2019-08-24] MEDS: ATORVASTATIN 40 MG TAB PO SCH (21:38)
--- NOTE | 2019-08-24 21:40 | NUR ---
PATIENT RESTING IN BED AOX4, NO SIGNS OF RESPIRATORY DISTRESS NOTED. IV ANTIBIOTICS ARE RUNNING AT ORDERED RATE AND PATIENT VOICES PAIN AT LEVEL OF 6 AND WAS MEDICATED PREVIOUSLY ORDERED. LEFT BKA IS NOTED, BED IS IN LOW POSITION, SIDE RAILS ARE UP, CALL LIGHT IS WITHIN EASY REACH, WILL CONTINUE TO MONITOR.
[2019-08-25] MEDS: CEFTRIAXONE SOD 1 GRAM/0.9% SOD CHL 50ML BAG IV SCH (03:46)
[2019-08-25] MEDS: MORPHINE SULFATE 2 MG/ML SYR 1ML IV PRN ×2 (04:37→11:55)
[2019-08-25] MEDS: ONDANSETRON HCL INJ 2MG/ML 2ML 2 MG/ML VIAL IV PRN ×3 (04:37→16:11)
[2019-08-25 05:14] LABS: BASOPHILS % 0.2 % (0.0-1.0); EOSINOPHILS # (AUTO) 0.1 (0.0-0.4); EOSINOPHILS % 1.8 % (0.0-6.0); HEMATOCRIT 38.9 % (34.2-44.1); HEMOGLOBIN 12.6 g/dL (12.0-16.0); LYMPHOCYTES # (AUTO) 1.9 (1.0-3.2); LYMPHOCYTES % 38.8 % (18.0-39.1); MEAN CORPUSCULAR HEMOGLOBIN 28.8 pg (28-32); MEAN CORPUSCULAR HGB CONC 32.4 g/dL (31-35); MONOCYTES # (AUTO) 0.3 (0.2-0.8); MONOCYTES % 5.3 % (4.4-11.3); NEUTROPHILS # (AUTO) 2.6 (2.1-6.9); NEUTROPHILS % 53.3 % (38.7-80.0); PLATELET COUNT 171 x10e3/uL (140-360); RED BLOOD COUNT 4.37 x10e6/uL (3.6-5.1); RED CELL DISTRIBUTION WIDTH 12.4 % (11.7-14.4)
[2019-08-25 05:34] LABS: ANION GAP 6.9 mmol/L (8-16); BLOOD UREA NITROGEN 14 mg/dL (7-26); BUN/CREATININE RATIO 18 (6-25); CALCIUM 8.7 mg/dL (8.4-10.2); CARBON DIOXIDE 28 mmol/L (22-29); CHLORIDE 108 mmol/L (98-107); CREATININE, SERUM 0.77 mg/dL (0.57-1.11); EST GLOMERULAR FILTRATION RATE > 60 ML/MIN (60-); GLUCOSE 245 mg/dL (74-118); MAGNESIUM 1.7 MG/DL (1.3-2.1); POTASSIUM 3.9 mmol/L (3.5-5.1); SODIUM 139 mmol/L (136-145)
[2019-08-25 05:53] VITALS: BP 139/63
[2019-08-25] MEDS ORDERED: PANTOPRAZOLE SOD 40 MG TABEC PO SCH (06:00)
[2019-08-25] MEDS: INSULIN REGULAR, HUMAN 100 UNIT/1 ML 3ML VIAL SQ SCH ×5 (07:30→16:10)
[2019-08-25 07:55] VITALS: BP 125/58
[2019-08-25] MEDS: ASPIRIN 81 MG CHEW TAB PO SCH (08:38)
[2019-08-25] MEDS: SERTRALINE HCL 50 MG TAB PO SCH (08:39)
[2019-08-25] MEDS: ASCORBIC ACID 500 MG TAB PO SCH ×2 (08:39→16:09)
[2019-08-25] MEDS: GABAPENTIN 100 MG CAP PO SCH ×2 (08:39→15:00)
[2019-08-25] MEDS: LOSARTAN POTASSIUM 25 MG TAB PO SCH (08:43)
[2019-08-25] MEDS ORDERED: ASCORBIC ACID500 MG PO (09:47)
[2019-08-25] MEDS ORDERED: CEFUROXIME250 MG PO (09:47)
--- NOTE | 2019-08-25 10:20 | NUR ---
Patient's daughter had questions about discharge, clarified and notified METAL [employer]ATER who will go see them for further education.
[2019-08-25 11:14] VITALS: BP 125/58
[2019-08-25 11:40] VITALS: BP 131/61
--- NOTE | 2019-08-25 12:02 | NUR ---
Insulin administered per sliding scale, will check blood sugar level again prior to discharge per RAILROAD FIRER, provided education on managing carbohydrates and diet. Patient to f/u with Dr. Yates upon discharge and to f/u with PCP upon discharge. Patient provided with prescriptions and tolerated all lunch.
[2019-08-25 16:00] VITALS: BP 116/57
--- NOTE | 2019-08-25 18:42 | NUR ---
Patient state BRANCH MECHANIC was going to give prescription for nausea medicine and pain medicine, only prescription for Vit C and abx in chart. Called service, spoke with Alla adames and she notified [employer] auto service station attendant, no call back yet at this time and patient decided to leave, pharmacy number obtained to give BRANCH MECHANIC to call meds in. IV line removed, dressing applied, to f/u with Dr. Yates out patient.
--- NOTE | 2019-08-26 02:22 | Discharge Summary ---
CHIEF COMPLAINT: Abdominal pain with nausea and vomiting. HISTORY OF PRESENT ILLNESS: Ms. Genao is a 64-year-old female, admitted with right-sided abdominal pain that began on 08/20, nausea and vomiting that began at 08/21. At its maximum, the pain was 8/10 on a 0-10 pain scale. She called her PCP, Dr. Dandy Calabrese thinking that she was having acid reflux, was told to get [id number] medication. She chose Prevacid. The nausea and vomiting became worse. She continued to have pain to the point of vomiting blood. PAST MEDICAL HISTORY: Hypertension, hyperlipidemia, diabetes mellitus, left lower extremity neuropathy, phantom limb pain, diabetic ketoacidosis, urinary tract infection, gastroesophageal reflux disease, history of ejection fraction 60%-65%. PAST SURGICAL HISTORY: Cholecystectomy, bilateral tubal ligation, bilateral cataract removal, neck fusion/cervical surgery, left BKA. FAMILY HISTORY: The patient's mother had Alzheimer's as well as her sister also had Alzheimer's. SOCIAL HISTORY: She drinks occasional alcohol, however, denies any tobacco or illicit drug use. ALLERGIES: INCLUDE VANCOMYCIN, TRIMETHOPRIM, AND SULFA. ADMITTING DIAGNOSES: 1. Acute right upper quadrant abdominal pain. 2. Acute pyelonephritis. 3. Acute urinary tract infection with pyelonephritis, present on arrival. 4. Acute nausea and vomiting with dehydration. 5. Uncontrolled type 2 diabetes mellitus with hyperglycemia. 6. Controlled hypertension. 7. Hyperlipidemia due to type 2 diabetes mellitus. 8. Ambulatory dysfunction, history of left BKA. 9. Obesity with BMI of 31.63. 10. Gastroesophageal reflux disease with esophagitis. DISCHARGE DIAGNOSES: 1. Escherichia coli urinary tract infection, present on arrival. 2. Type 2 diabetes mellitus. 3. Hypertension. 4. Hyperlipidemia. 5. Hypokalemia. 6. Left BKA. On admission, WBCs 6.62, H and H was stable. BUN 14, creatinine 0.77, GFR greater than 60, glucose 245, and magnesium 1.7 today on the day of admission, potassium 3.7, carbon dioxide 30, BUN 19, creatinine 1.1. Estimated GFR 50, glucose 515, calcium 10. Creatine kinase 19, amylase 65, lipase 13. During her stay, her hemoglobin A1c was 9.9%. Urinalysis collected on August 21 was normal, nearly pansensitive E coli resistant to the ampicillin. CT of the abdomen and pelvis showed bilateral mild perinephric stranding, which is nonspecific, but may represent infectious or inflammatory etiology. A small hiatal hernia with mild distal esophageal wall thickening, which may represent esophagitis in the setting of reflux, coronary arthrosclerosis. Today, WBCs 4.87, hemoglobin 12.6, hematocrit 38.9, platelets 171. The patient will be discharged home today on cefuroxime for 10 days as well as vitamin C. She was encouraged to drink plenty of fluids. Continue ADA diet. Activity level as tolerated. Follow up with her PCP, Dr. Stephen Calabrese in 1-2 weeks. Dictated by Santi Nina, LAKISHA MD BRIEN Corbin/KOLE /[id number]
== END 2019-08-25 18:24 | disposition home or self-care (01) ==
LOC: ER 22:39 → ERHOLD 08-23 03:58 → MED/SURG2 08-23 10:35
PROVIDERS: ADMIT Internal Medicine; ATTEND Internal Medicine
DX: N10 Acute pyelonephritis (principal); I10 Essential (primary) hypertension; E11.9 Type 2 diabetes mellitus without complications; K21.9 Gastro-esophageal reflux disease without esophagitis; E86.0 Dehydration; E11.65 Type 2 diabetes mellitus with hyperglycemia; E66.9 Obesity, unspecified; Z68.31 Body mass index [BMI] 31.0-31.9, adult
CPT/HCPCS: 36415 ×4; 74176; 80048; 80053 ×2; 80061; 81001; 82150; 82550; 82553; 82948 ×3; 83036; 83690; 83735 ×2; 84100; 84443; 84484; 85025 ×3; 85610; 85730; 87086; 87186; 93005; 97116; 97139; 97161; 99284; G0378 ×3; J0360; J0696 ×3; J1817; J1885; J2270 ×5; J2405 ×4; J2550; J7030 ×2; J7799; S0164 ×2

== ENCOUNTER 2020-01-05 18:41 | Emergency (ER) | payer OTHER ==
[~2020-01-05] VITALS: Ht 157.5 cm; Wt 78.5 kg
[~2020-01-05 18:41] MED LIST changes: +ASCORBIC ACID500 MG PO; +CEFUROXIME250 MG PO; +HUMULIN R100 UNIT/2 SC; +PANTOPRAZOLE SO40 MG PO; +ULTRAM 50MG50 MG PO
--- NOTE | 2020-01-05 19:11 | Emergency Department Note ---
History of Present Illnes History of Present Illness Chief Complaint: General Medicine Complaints History of Present Illness This is a 64 year old female PRESENTS WITH C/O PAIN IN RIGHT HIP RADIATING TO RIGHT FOOT SINCE LAST NIGHT, PT STATES PAIN WORSE WITH MOVEMENT, PT DENIES INJURY.. Historian: Patient Arrival Mode: Car Onset (how long ago): day(s) (1) Severity: moderate Onset quality: sudden Duration (how long): day(s) (1) Timing of current episode: intermittent Progression: waxing and waning Context: Denies recent illness, Denies recent surgery, Denies trauma/injury Relieving factors: other (REMAINING STILL) Exacerbating factors: movement (OF RIGHT HIP/LEG, BENDING OVER) Associated symptoms: Reports denies other symptoms Treatments prior to arrival: none Past Medical/Family History Physician Review I have reviewed the patient's past medical and family history. Any updates have been documented here. Past Medical History Recent Fever: No Clinical Suspicion of Infectio: No New/Unexplained Change in Ment: No Past Medical History: Hypertension, Diabetes, Hyperlipedemia Other Medical History: NEUROPATHY PHANTOM PAIN (LLE) Past Surgical History: Cholecysctectomy, Tubal Ligation, Cataract Removal Other Surgery: LEFT BKA CERVICAL SX Social History Smoking Cessation: Never Smoker Alcohol Use: None Any Illegal Drug Use: No Family History Family history of heart diseas: No Other family history HTN,DM Other Last Tetanus: UTD Review of Systems Review of Systems Constitutional: Reports no symptoms EENTM: Reports no symptoms Cardiovascular: Reports no symptoms Respiratory: Reports no symptoms Gastrointestinal: Reports no symptoms Genitourinary: Reports no symptoms Musculoskeletal: Reports as per HPI Integumentary: Reports no symptoms Neurological: Reports no symptoms Psychological: Reports no symptoms Endocrine: Reports no symptoms Hematological/Lymphatic: Reports no symptoms Physical Exam Related Data Allergies: Coded Allergies: sulfamethoxazole (Verified Allergy, Severe, 02/10/18) trimethoprim (Verified Allergy, Severe, 02/10/18) vancomycin (Verified Allergy, Severe, 02/10/18) Uncoded Allergies: PLASTIC (Allergy, Unknown, 08/22/19) Triage Vital Signs Vital Signs Date Time Temp Pulse Resp B/P (MAP) Pulse Ox O2 Delivery O2 Flow Rate FiO2 01/05/20 18:55 99.1 93 16 162/65 98 Room Air Vital signs reviewed: Yes Physical Exam CONSTITUTIONAL Constitutional: Present well-developed, Present well-nourished; Absent distressed HENT HENT: Present normocephalic, Present atraumatic, Present oropharynx clear/moist, Present nose normal HENT L/R: Present left ext ear normal, Present right ext ear normal EYES Eyes: Reports PERRL, Reports conjunctivae normal NECK Neck: Present ROM normal PULMONARY Pulmonary: Present effort normal, Present breath sounds normal CARDIOVASCULAR Cardiovascular: Present regular rhythm, Present heart sounds normal, Present capillary refill normal, Present normal rate GASTROINTESTINAL Abdominal: Present soft, Present nontender, Present bowel sounds normal GENITOURINARY Genitourinary: Present exam deferred SKIN Skin: Present warm, Present dry MUSCULOSKELETAL PT WITH TENDERNESS TO SOFT TISSUE OF RIGHT HIP POSTERO-LATERAL, PAIN RADIATES DOWN LEG WITH PALPATION, STRAIGHT LEG RAISE TO 30 DEGREES, PAIN DOES NOT OCCUR IN BACK. DP AND PT PULSES 2+, CAP REFILL OF TOES LESS THAN 2 SECONDS. LEFT LEG BKA NEUROLOGICAL Neurological: Present alert, Present oriented x 3, Present no gross motor or sensory deficits PSYCHOLOGICAL Psychological: Present mood/affect normal, Present judgement normal Assessment & Plan Medical Decision Making MDM PT WITH RIGHT HIP PAIN RADIATING TO FOOT, PT WITH SIGNS AND SYMPTOMS OF SCIATICA FLEXERIL 10 MG PO ORDERED TRAMADOL 50 MG PO ORDERED PT DISCHARGED WITH FOLLOW PRESCRIPTIONS 1 NAPROXEN 500 MG ONE PO BID #10 2 FLEXERIL 10 MG ONE PO Q 8 HOURS PRN MUSCLE SPASM #15 3 TRAMADOL 50 MG ONE PO Q 6 HOURS PRN PAIN #15 PT INSTRUCTED TO FOLLOW UP WITH PCP NEXT SATURDAY IF NOT BETTER. Assessment & Plan Final Impression: (1) Sciatica of right side Depart Disposition: ADMITTED Last Vital Signs Date Time Temp Pulse Resp B/P (MAP) Pulse Ox O2 Delivery O2 Flow Rate FiO2 01/05/20 18:55 99.1 93 16 162/65 98 Room Air Home Meds Active Scripts Cefuroxime Axetil (CEFUROXIME) 250 Mg Tablet, 500 MG PO Q12H for 10 Days, #20 TAB 0 Refills Prov:DANYA ORTEGA NAVIGATING OFFICER 08/25/19 Ascorbic Acid (ASCORBIC ACID) 500 Mg Tablet, 500 MG PO BID for 14 Days, #30 MG 0 Refills Prov:DANYA ORTEGA NP 08/25/19 Reported Medications Insulin Regular, Human (HUMULIN R) 100 Unit/1 Ml Vial, 60 SC HS 08/23/19 Insulin Regular, Human (HUMULIN R) 100 Unit/1 Ml Vial, 65 SC ACL 08/23/19 Insulin Regular, Human (HUMULIN R) 100 Unit/1 Ml Vial, 60 UNIT SC ACB 08/23/19 Tramadol Hcl* (ULTRAM 50MG*) 50 Mg Tab, 50 MG PO PRN, TAB 08/23/19 Pantoprazole Sodium* (PROTONIX) 40 Mg Tablet.dr, 40 MG PO DAILY, TAB 08/23/19 [U-500 (Humulin)] No Conflict Check, 50 UNITS SC TID 04/20/19 Sertraline Hcl (SERTRALINE HCL) 50 Mg Tablet, 50 MG PO DAILY, #30 TAB 04/18/19 Gabapentin (GABAPENTIN) 100 Mg Capsule, 100 MG PO TID 04/18/19 Furosemide (LASIX) 20 Mg Tablet, 20 MG PO DAILY, #30 TAB 04/18/19 Methocarbamol (METHOCARBAMOL) 750 Mg Tablet, 500 MG PO Q8H PRN for MUSCLE SPASMS, #30 TAB 04/18/19 Aspirin (ASPIR 81) 81 Mg Tablet.dr, 81 MG PO DAILY 04/18/19 Atorvastatin Calcium (LIPITOR) 40 Mg Tablet, 40 MG PO HS 04/18/19 Losartan Potassium (LOSARTAN POTASSIUM) 100 Mg Tablet, 50 MG PO DAILY, TAB 04/18/19 Acetaminophen With Codeine (TYLENOL WITH CODEINE #3 TABLET) 1 Each Tablet, 300 MG PO Q6H PRN for PAIN, TAB 02/10/18 Medications in the ED Tramadol HCl 50 mg ONCE ONCE PO ; Start 01/05/20 at 19:00; Stop 01/05/20 at 19:01; Status UNV Cyclobenzaprine HCl 10 mg ONCE ONCE PO ; Start 01/05/20 at 19:00; Stop 01/05/20 at 19:01; Status UNV JUSTIN MARAVILLA MD Jan 05, 2020 19:11
[2020-01-05 19:15] VITALS: BP 125/55
[2020-01-05] MEDS ORDERED: CYCLOBENZAPRINE HCL 10 MG TAB PO ONE (19:15)
[2020-01-05] MEDS ORDERED: TRAMADOL HCL 50 MG TAB PO ONE (19:15)
--- OUTSIDE RECORDS SUMMARY | 2020-01-08 19:19 | XMS REPORT ---
Author Author PAOLA Hill Organization [employer] Address Unknown Phone Unavailable Care Team Providers Care Housekeeper Cleaning Cooking Name Role Phone Sergio Hill CP Unavailable Allergies, Adverse Reactions, Alerts Substance Reaction Event Type Bactrim Info Not Available Drug Allergy Problems Problem Type Condition Code Onset Dates Condition Statu s Assessment DM w/o complication type II, uncontrolled E11.65 Active Assessment Shortness of breath R06.02 Active Assessment Abnormal electrocardiogram R94.31 A ctive Problem Wheel chair as ambulatory aid Z99.3 Active Problem Pure hypercholesterolemia E78.00 Ac tive Problem DM w/o complication type II, uncontrolled E11.65 Active Assessment Precordial pain R07.2 Active Problem 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 Act estefaina Problem S/P BKA (below knee amputation) unilateral Z89.519 Active Assessment Wheel chair as ambulatory aid Z99.3 Active Assessment Pure hypercholesterolemia E78.00 Ac tive Assessment 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 Act estefania Assessment S/P BKA (below knee amputation) unilateral Z89.519 Active Assessment Other symptoms involving cardiovascular system R09.89 Active Medications Medication Code System Code Instructions Start Date End Date Status Dosage MetFORMIN HCl ER ND 73468306833 500 MG Orally Once a day Active 1 tablet with evening meal Victoza [facility] [address]-38 18 MG/3ML Subcutaneous Ac tive not defined Sertraline HCl ND 75468279825 50 MG Orally Once a day Active 1 tablet Aspir-81 ND 85919176015 81 MG Orally Once a day Act estefania 1 tablet NovoLog ND 93447174568 100 UNIT/ML Subcutaneous Ac tive not defined Losartan Potassium ND 43025935923 50 MG Orally Once a day Active 1 tablet BuPROPion HCl (XL) ND 40364865526 150 MG Orally Once a day Active 1 tablet in the morning Methocarbamol ND 11102537446 500 MG Orally every 4 hrs Active 1.5 tablets Gabapentin ND 31230594826 100 MG Orally Three times a day Active 1 capsule Furosemide [facility] 56133321954 20 MG Orally Once a day A ctive 1 tablet Humulin R U-500 (Concentrated) [facility] 96507043207 500 UNIT/ML Subcu taneous Active not defined Atorvastatin Calcium [facility] 39971586533 40 MG Orally Once a day Active 1 tablet Vital Signs Date/Time: Apr 24, 2018 BMI 38.86 Index Weight 199 lbs Height 5'2 in Cardiac Monitoring Heart Rate 84 /min Blood Pressure Diastolic 58 mm Hg Blood Pressure Systolic 124 mm Hg Results No Known Results Summary Purpose [employer] Submission
--- OUTSIDE RECORDS SUMMARY | 2020-01-08 19:19 | XMS REPORT | Continuity of Care Document ---
Author Author [employer] Address Unknown Phone Unavailable Care Team Providers Care Top Stitcher Name Role Phone [employer] Unavailable Un available Problems Problem Status Onset Date Classification Date Reported Comments Source DM w/o complication type II, uncontrolled Active Diagnosis 09/30/2018 Sergio Hill Shortness of breath Active Diagnosis 09/30/2018 Sergio Hill Abnormal electrocardiogram Act estefania Diagnosis 0 09/30/2018 Sergio Hill Wheel chair as ambulatory aid Active Problem Sergio Hill Pure hypercholesterolemia Acti ve Problem Sergio Hill Precordial pain Active Diagnosis 09/30/2018 Sergio Hill Atheroscler-limb&claudic Active Problem 09/30/2018 Sergio Hill S/P BKA (below knee amputation) unilateral Active Problem 09/30/2018 Sergio Hill Other symptoms involving cardiovascular system Active Diagnosis 09/30/2018 Sergio Hill Medications Medication Details Route Status Patient Instructions Ordering Provider Order Date Source MetFORMIN HCl ER 1 tablet with evening meal Orally Active 500 MG Orally Once a day Sergio Hill Victoza not defined Subcutaneous Active 18 MG/3ML Subcutaneous Sergio Hill Sertraline HCl 1 tablet Orally Active 50 MG Orally Once a day Sergio Hill Aspir-81 1 tablet Orally Active 81 MG Orally Once a day [facility] Sergio Hill NovoLog not defined Subcutaneous Active 100 UNIT/ML Subcutaneou s Sergio Hill Losartan Potassium 1 tablet Orally Active 50 MG Orally Once a day Sergio Hill BuPROPion HCl (XL) 1 tablet in the morning Orally Active 150 MG Orally Once a day Sergio Hill Methocarbamol 1.5 tablets Orally Active 500 MG Orally every 4 h Sergio Hill Gabapentin 1 capsule Orally Active 100 MG Orally Three jeny es a day Sergio Hill Furosemide 1 tablet Orally Active 20 MG Orally Once a day catherine catherine catherine Humulin R U-500 (Concentrated) not defined Subcutaneous Active 500 UNIT/ML Subcutaneous Ahmed Ahmed Ahmed Atorvastatin Calcium 1 tablet Orally Active 40 MG Orally Once a day Ahmed Ahmed Ahmed Allergies, Adverse Reactions, Alerts Substance Category Reaction Severity Reaction type Status Date Reported Comments Source Bactrim Adverse Reaction Info Not Available Adverse Reaction Active 04/24/2018 Ahmed Ahmed Immunizations No Data Provided for This Section Results No Data Provided for This Section Pathology Reports No Data Provided for This Section Diagnostic Reports No Data Provided for This Section Consultation Notes No Data Provided for This Section Discharge Summaries No Data Provided for This Section History and Physicals No Data Provided for This Section Vital Signs Vital Sign Value Date Comments Source Weight 199 04/24/2018 Ahmed Ahmed Heart Rate 84 04/24/2018 Ahmed Ahmed Diastolic (mm Hg) 58 04/24/2018 Ahmed Ahmed Systolic (mm Hg) 124 04/24/2018 Ahmed Ahmed Encounters No Data Provided for This Section Procedures No Data Provided for This Section Assessment and Plan No Data Provided for This Section Plan of Care No Data Provided for This Section Social History No Data Provided for This Section Family History No Data Provided for This Section Advance Directives No Data Provided for This Section Functional Status No Data Provided for This Section
--- OUTSIDE RECORDS SUMMARY | 2020-01-08 19:19 | XMS REPORT | Continuity of Care Document ---
Author Author 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 Name Role Phone MD Hernesot ALBERT MD DACIA PCP Balwinder MARAVILLA Attphys Unavailable Hernesto TORRES Attphys Unavailable Payers Payer Name Policy Type Policy Number Effective Date Expiration Date [facility] Choice Excha [id number] 2019 00:00:00 2019 00:00:00 [facility] Problems Condition Name Condition Details Condition Category Status Onset Date Resolution Date Last Treatment Date Treating Clinician Comments Source Dehydration Dehydration Problem Active [facility] Hyperglycemia Hyperglycemia Problem Active [facility] Renal insufficiency Renal insufficiency Problem Active [facility] Urinary tract infection UTI (urinary tract infection) Problem Active [facility] Pyelonephritis Pyelonephritis Problem Active [facility] Sciatica of right side Problem Active [facility] DM w/o complication type II, uncontrolled DM w/o complication type II, uncontrolled Active Diagnosis 09/30/2018 Sergio Hill Diagnosis Active 2018-09-30 03:13:21 Mitchell Schmidt Shortness of breath Shor tness of breath Active Diagnosis 09/30/2018 Sergio Hill Diagnosis Active 2018-09-30 03:13:21 Mitchell Schmidt Abnormal electrocardiogram Abn ormal electrocardiogram Active Diagnosis 09/30/2018 Sergio Hill Diagnosis Active 2018-09-30 03:13:21 [facility] Brayan Wheel chair as ambulatory aid Wheel chair as ambulatory aid Active Problem 09/30/2018 Sergio Aguilarmed Problem Active 2018-09-30 03:13:21 Mitchell Schmidt Pure hypercholesterolemia Pure hypercholesterolemia Active Problem 09/30/2018 Sergio Hill Problem Active 2018-09-30 03:13 :21 Mitchell Schmidt Precordial pain Prec ordial pain Active Diagnosis 09/30/2018 Sergio Hill Diagnosis Active 2018-09-30 03:13:21 [facility] Brayan Atheroscler-limb&claudic Athe roscler-limb&claudic Active Problem 09/30/2018 Sergio Hill Problem Active 2018-09-30 03:13 :21 Mitchell Schmidt S/P BKA (below knee amputation) unilateral S/P BKA (below knee amputation) unilateral Active Problem 09/30/2018 Sergio [facility] Problem Active 2018-09-30 03:13:21 Dane Schmidt Other symptoms involving cardiovascular system Other symptoms involving cardiovascular system Active Diagnosis 09/30/2018 Sergio [facility] Diagnosis Active 2018-09-30 03:13:21 [facility] Brayan Allergies, Adverse Reactions, Alerts Allergy Name Allergy Type Status Severity Reaction(s) Onset Date Inacti ve Date Treating Clinician Comments Source PLASTIC Allergy to substance Active 2019-08-22 00:00:00 [facility] Bactrim Bactrim Active Info Not Available 2018-04-24 00:00:00 [facility] Sulfamethoxazole Allergy to substance Active Severe 2018-02-10 00: 00:00 [facility] Trimethoprim Allergy to substance Active Severe 2018-02-10 00:00:0 0 [facility] Vancomycin Allergy to substance Active Severe 2018-02-10 00:00:00 [facility] sulfamethoxazole DA Active MO 2017-05-04 00:00:00 [facility] trimethoprim DA Active SV 2017-05-04 00:00:00 [facility] vancomycin DA Active SV 2017-05-04 00:00:00 [facility] Social History Social Habit Start Date Stop Date Quantity Comments Source Sex Assigned At 1955 00:00:00 1955 00:00:00 Female [facility] Medications Ordered Medication Name Filled Medication Name Start Date Stop Da te Current Medication? Ordering Clinician Indication Dosage Frequency Signature (SIG) Comments Components Source Ascorbic Acid Ascorbic Acid 2019-08-25 09:47:00 Yes 500 Twice A Day [facility] Cefuroxime Axetil (Cefuroxime) 250 Mg TABLET Cefuroxim e Axetil (Cefuroxime) 250 Mg TABLET 2019-08-25 09:47:00 Yes 500 Every 12 Hours [facility] Cefdinir (Omnicef) 300 Mg CAPSULE Cefdinir (Omnicef) 300 Mg CAPSULE 2019-04-20 06:13:00 2019-08-25 00:00:00 No 300 Twice A Day [facility] MetFORMIN HCl ER 2018-09-30 03:13:21 Yes Ahmed Ahmed 1 tablet with evening meal [facility] Victoza 2018-09-30 03:13:21 Yes Ahmed Ahmed not d efined [facility] Sertraline HCl 2018-09-30 03:13:21 Yes Ahmed Ahmed 1 tablet [facility] Aspir-81 2018-09-30 03:13:21 Yes Ahmed Ahmed 1 ta blet [facility] NovoLog 2018-09-30 03:13:21 Yes Ahmed Ahmed not d efined [facility] Losartan Potassium 2018-09-30 03:13:21 Yes Ahmed Ahmed 1 tablet [facility] BuPROPion HCl (XL) 2018-09-30 03:13:21 Yes Ahmed Ahmed 1 tablet in the morning [facility] Methocarbamol 2018-09-30 03:13:21 Yes Ahmed Ahmed 1.5 tablets [facility] Gabapentin 2018-09-30 03:13:21 Yes Ahmed Ahmed 1 capsule [facility] Furosemide 2018-09-30 03:13:21 Yes Ahmed Ahmed 1 tablet [facility] Humulin R U-500 (Concentrated) 2018-09-30 03:13:21 Yes A hmed Ahmed not defined [facility] Atorvastatin Calcium 2018-09-30 03:13:21 Yes Ahmed Ahmed 1 tablet [facility] Acetaminophen With Codeine (Tylenol With Codeine #3 Ta blet) 1 Each TABLET Acetaminophen With Codeine (Tylenol With Codeine #3 Tablet) 1 Each TABLET Yes 300 Every 6 Hours as needed for Pain [facility] Aspirin (Aspir 81) 81 Mg TABLET. Aspirin (Aspir 81) 81 Mg TABLET. Yes 81 Daily [facility] Atorvastatin Calcium (Lipitor) 40 Mg TABLET Atorvastat in Calcium (Lipitor) 40 Mg TABLET Yes 40 Bedtime [facility] Furosemide (Lasix) 20 Mg TABLET Furosemide (Lasix) 20 Mg TABLET Yes 20 Daily [facility] Gabapentin Gabapentin Yes 100 Three Times A Day [facility] Insulin Regular, Human (Humulin R) 100 Unit/1 Ml VIAL Insulin Regular, Human (Humulin R) 100 Unit/1 Ml VIAL Yes 60 Before Breakfast [facility] Insulin Regular, Human (Humulin R) 100 Unit/1 Ml VIAL Insulin Regular, Human (Humulin R) 100 Unit/1 Ml VIAL Yes 65 Before Lunch [facility] Insulin Regular, Human (Humulin R) 100 Unit/1 Ml VIAL Insulin Regular, Human (Humulin R) 100 Unit/1 Ml VIAL Yes 60 Bedtime [facility] Losartan Potassium Losartan Potassium Yes 50 Da chris [facility] Methocarbamol Methocarbamol Yes 500 Every 8 Hours as needed for Muscle Spasms [facility] Pantoprazole Sodium (Protonix) 40 Mg TABLET. Pantopr azole Sodium (Protonix) 40 Mg TABLET. Yes 40 Daily [facility] Sertraline Hcl Sertraline Hcl Yes 50 Daily [facility] Tramadol Hcl (Ultram 50MG*) 50 Mg TAB Tramadol Hcl (Ultram 50MG*) 5 0 Mg TAB Yes 50 As Needed [facility] U-500 (Humulin) U-500 (Humulin) Yes 50 Three Ti mes A Day [facility] Omeprazole Omeprazole 2019-08-23 00:00:00 No 40 Keshia ly [facility] Metformin Hcl Metformin Hcl 2019-04-20 00:00:00 No 1000 Twice Daily With Meals [facility] Cyclobenzaprine Hcl (Flexeril) 5 Mg TABLET Cyclobenzap rine Hcl (Flexeril) 5 Mg TABLET 2019-04-18 00:00:00 No 10 Ever y 8 Hours as needed for Muscle Spasms [facility] Ondansetron Hcl (Zofran*) 4 Mg TABLET Ondansetron Hcl (Zofran*) 4 Mg TABLET 2018-06-07 00:00:00 No 4 Every 6 Hours as nee ded for Nausea [facility] Vital Signs Vital Name Observation Time Observation Value Comments Source Weight 2020-01-05 18:55:00 173 [lb_av] [facility] BMI (Body Mass Index) 2020-01-05 18:55:00 31.6 kg/m2 [facility] Body Temperature 2019-08-25 16:00:00 97.8 [degF] [facility] Weight 2018-04-24 20:15:00 [facility] Heart Rate 2018-04-24 20:15:00 [facility] Diastolic (mm Hg) 2018-04-24 20:15:00 [facility] Systolic (mm Hg) 2018-04-24 20:15:00 Blaise Schmidt Procedures Procedure Date / Time Performed Performing Clinician Santiago thakkar CT of abdomen and pelvis without contrast 2019-08-22 00:00:00 [facility] Computed tomography of brain without radiopaque contrast 201 02-19-08 00:00:00 YOEL TORRES [facility] Plan of Care Planned Activity Planned Date Details Comments Source Instructions Sciatica [facility] Encounters Start Date/Time End Date/Time Encounter Type Admission Type Attendi [facility] Facility Care Department Encounter ID Source 2020-01-05 19:00:00 2020-01-05 19:35:00 Departed Emergency Room [facility] [id number] [facility] dical [place] 2019-08-23 03:58:00 2019-08-25 18:24:00 Discharged Inpatient (obs) 1 JUSTIN MARAVILLA [facility] [id number] I [facility] 2019-04-18 02:51:00 2019-04-20 14:40:00 Discharged Inpatient 1 [id number] [facility] 2018-06-07 22:27:00 2018-06-08 05:51:00 Departed Emergency Room [facility] [id number] [facility] 2018-04-24 15:15:00 2018-04-24 15:15:00 Outpatient [facility] [id number] [employer] 2018-02-10 20:45:00 2018-02-10 22:37:00 Departed Emergency Room [facility] [id number] [facility] Results Test Description Test Time Test Comments Results Result Comments Source GLUBED 2019-10-26 23:02:00 Test Item GLUBED (test code = GLUBED) 105 MG/DL 70-110 N Performed by certified hoop punch and coiler operator at [facility] - CT ABD PELVIS [id number] 21:47:00 Name: PAOLA STILES [facility] : 1955 Age/S: 64 / F [address] Unit #: [id number] Loc: [place] [address] Phys: Heena Winter [employer]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 Nausea and vomiting. COMPARISON: CT abdomen dated 05/04/2017. TECHNIQUE: A CT of the abdomen pelvis was performed using helical images from the thoracic outlet through the pubic symphysis with subsequent sagittal and coronal reconstruction. IV CONTRAST: 100 cc of Isovue-300 GI CONTRAST: None. CT imaging performed at this location utilizes radiation dose optimization techniques which include one or more of the followin) Automated exposure control; 2) Adjustment of mA and/or kV; 3) Use of iterative reconstructive technique. CT radiation dose DLP (mGy-cm): 724. FINDINGS: SOLID ORGANS: An approximately 2 cm low-density lesion is identified in the peripheral subcapsular right lobe the liver near the dome that is better visualized than on the prior CT from 05/04/2017 however appears grossly stable in size. No acute CT abnormalities of the liver, spleen, pancreas, adrenal glands or kidneys are identified. A 3 mm calcified stone is noted in the upper pole of the right kidney. There is no CT evidence of acute renal collecting system obstruction or calcified ureteral stone. 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 There is no evidence of acute hemorrhage. BILIARY: The patient is status post cholecystectomy. No significant biliary ductal dilatation is identified. BOWEL: Bowel assessment is limited by the absence of bowel contrast. No g ross abnormalities of the stomach or duodenum are noted. No small bowel d ilatation is present to suggest obstruction. The appendix is well visuali zed and is not acutely inflamed. There is no evidence of acute diverticul ar disease or inflammatory colonic wall thickening. PERITONEUM: Th ere is no evidence of free intraperitoneal air or significant free intrape ritoneal fluid. 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 There is no evidence of retroperitoneal mass or adenopathy. PELVIS: No abnormalities of the ovaries or adnexa are noted. The bladder has an unremarkable appearance. LOWER CHEST: The lung bases appear clear of acute disease. ADDITIONAL FINDINGS: None. IMPRESSION: 1. No acute CT abnormalities of the abdomen or pelvis are detected. 2. Right nephrolithiasis. 3. An approximately 2 cm low-density lesion is identified in the peripheral subcapsular right lobe of the liver near the hepatic dome. While the lesion is indeterminate and appears grossly stable in size when compared to a prior CT from 05/04/2017, favoring a benign etiology. SL: 131 at 2147 Reported and signed by: Paulo Parekh M.D. CC: Heena Winter NP Technologist:RT Melodie(R) CTDI: DLP: Trnscb Date/Time: 10/26/2019 (2146) t.[email or web address] Orig Print D/T: S: 10/26/2019 (2149) PAGE 2 Signed Report BASIC METABOLIC [id number] 20:42:00* Test Item Value Reference Range Interpretation Comments SODIUM (test code = NA) 139 mEq/L 134-147 N POTASSIUM (test code = K) 2.8 mEq/L 3.4-5.0 LL CHLORIDE (test code = CL) 104 mEq/L 100-108 N CARBON DIOXIDE (test code = CO2) 27 mEq/L 21-33 N ANION GAP (test code = GAP) 11 0-20 N GLUCOSE (test code = GLU) 53 mg/dL 70-110 L BLOOD UREA NITROGEN (test code = BUN) 19 mg/dL 7-18 H GLOMERULAR FILTRATION RATE (test code = GFR) 72.4 80-90 L Units of measure = ml/min/1.73 m2 CREATININE (test code = CREAT) 0.8 mg/dL 0.6-1.3 N CALCIUM (test code = CA) 9.3 mg/dL 8.0-10.5 N HEPATIC FUNCTION [id number] 20:42:00* Test Item Value Reference Range Interpretation Comments TOTAL PROTEIN (test code = PROT) 7.7 g/dL 6.4-8.2 N ALBUMIN (test code = ALB) 3.80 g/dL 3.4-5.0 N BILIRUBIN TOTAL (test code = BILT) 0.3 MG/DL <1.5 N BILIRUBIN DIRECT (test code = BILD) 0.10 MG/DL 0.0-0.30 N BILIRUBIN INDIRECT (test code = BILIND) 0.20 MG/DL SGOT/AST (test code = AST) 14 IUnit/L 15-37 L SGPT/ALT (test code = ALT) 15 IUnit/L 15-65 N ALKALINE PHOSPHATASE TOTAL (test code = ALKP) 104 IUnit/L 20-125 N [id number] 20:42:00* Test Item Value Reference Range Interpretation Comments LIPASE (test code = LIP) 59 IUnit/L 73-393 L [id number] 20:42:00* Test Item Value Reference Range Interpretation Comments TROPONIN-I (test code = TROPI) < 0.015 ng/mL 0.000-0.045 N Negative: <= 0.045 Positive: >= 0.046 Correlation with serial results, other cardiac markers andclinical findings is necessary to determine the clinicalsignificance of this result. Results using different methodologies should not be comparedto one another as quantitative results may vary by method. - XR CHEST 1 [id number] 20:37:00 FAX: Heena Winter NP [phone] [place]: St: PRE Name: Cherelle GEORGESPAOLA CIRILO [facility] : [birth year] Age/S: 64/F [address] [place] [address] Bl Unit #: [id number] Loc: [place] [address] Phys: Heena Winter NP Acct: [id number] Dis Date: Status: PRE ER PHONE #: [phone] Exam Date: 10/26/20192023 FAX #: [phone] Reason: cough EXAMS: CPT CODE: [id number] XR CHEST 1 V 73573 Chest, single view dated 10/26/2019 . HISTORY: Cough. Sore throat. Comparison is made t o a prior study dated 05/04/2017. The heart is normal in size. Th e cardiomediastinal shadow appears within normal limits. The lungs appear clear. The pulmonary vasculature is normal in caliber. No acute pleural space abnormalities are detected. IMPRESSION: 1. No radiographic evidence of acute cardiopulmonary disease. SL : 131 at 2036 Reported and signed by: Paulo Parekh M.D. CC: Heena Winter NP Technologist: RT Pavan(R) Trnbertha Date/Time/By: 0 (2036) : By: Norma Orig Print D/T: S: 10/26/2019 (2039) PAGE 1 Signed Report URINALYSIS [id number] 20:33:00* Test Item Value Reference Range Interpretation Comments UA COLOR (test code = COLU) YELLOW YEL/STRAW UA APPEARANCE (test code = APPU) SL CLOUDY CLEAR UA GLUCOSE DIPSTICK (test code = DGLUU) 3+ NEGATIVE A UA BILIRUBIN DIPSTICK (test code = BILU) NEGATIVE NEGATIVE UA KETONE DIPSTICK (test code = KETU) NEGATIVE NEGATIVE UA SPECIFIC GRAVITY (test code = SGU) 1.012 1.005-1.030 N UA BLOOD DIPSTICK (test code = KATELIN) 1+ NEGATIVE A UA PH DIPSTICK (test code = ISAAC) 5.0 5.0-7.0 N UA PROTEIN DIPSTICK (test code = PROU) NEGATIVE NEGATIVE UA UROBILINIOGEN DIPSTICK (test code = URO) 0.2 mg/dL 0.2-1.0 UA NITRITE DIPSTICK (test code = ANU) POSITIVE NEGATIVE A UA LEUKOCYTE ESTERASE DIPSTICK (test code = LEUU) 3+ NEGA TIVE A UA RBC (test code = RBCU) 4-10 RBC/HPF 0-3 UA WBC NO REFLEX (test code = WBCUCL) >50 WBC/HPF 0-3 A UA BACTERIA (test code = BACU) 4+ /HPF NONE SEEN A UA SQUAMOUS CELLS (test code = SQU) 6-10 /HPF NONE SEEN A UA MUCUS (test code = MUCU) TRACE /LPF NONE SEEN CBC W/AUTO [id number] 20:23:00* Test Item Value Reference Range Interpretation Comments WHITE BLOOD CELL (test code = WBC) 5.72 x10 3/uL 4.5-11.0 N RED BLOOD CELL (test code = RBC) 5.05 x10 6/uL 3.54-5.02 H HEMOGLOBIN (test code = HGB) 14.8 g/dL 11.0-15.0 N HEMATOCRIT (test code = HCT) 43.9 % 33.0-45.0 N MEAN CELL VOLUME (test code = MCV) 86.9 fL 81.0-99.0 N MEAN CELL HGB (test code = MCH) 29.3 pg 27.0-33.0 N MEAN CELL HGB CONCETRATION (test code = MCHC) 33.7 g/dL 33.0-37. 0 N RED CELL DISTRIBUTION WIDTH CV (test code = RDW) 12.1 % 11.5- 14.5 N RED CELL DISTRIBUTION WIDTH SD (test code = RDW-SD) 38.5 fL 37 .0-54.0 N PLATELET COUNT (test code = PLT) 235 x10 3/uL 150-400 N MEAN PLATELET VOLUME (test code = MPV) 9.4 fL 7.0-9.0 H NEUTROPHIL % (test code = NT%) 52.5 % 56.0-77.0 L IMMATURE GRANULOCYTE % (test code = IG%) 0.7 % 0.0-2.0 N LYMPHOCYTE % (test code = LY%) 37.6 % 14.0-32.0 H MONOCYTE % (test code = MO%) 7.2 % 4.8-9.0 N EOSINOPHIL % (test code = EO%) 1.7 % 0.3-3.7 N BASOPHIL % (test code = BA%) 0.3 % 0.0-2.0 N NUCLEATED RBC % (test code = NRBC%) 0.0 % 0-0 N NEUTROPHIL # (test code = NT#) 3.00 x10 3/uL 2.0-7.6 N IMMATURE GRANULOCYTE # (test code = IG#) 0.04 x10 3/uL 0.00-0.03 H LYMPHOCYTE # (test code = LY#) 2.15 x10 3/uL 1.0-3.8 N MONOCYTE # (test code = MO#) 0.41 x10 3/uL 0.1-0.8 N EOSINOPHIL # (test code = EO#) 0.10 x10 3/uL 0.0-0.2 N BASOPHIL # (test code = BA#) 0.02 x10 3/uL 0.0-0.2 N NUCLEATED RBC # (test code = NRBC#) 0.00 x10 3/uL 0.0-0.1 N MANUAL DIFF REQUIRED (test code = MDIFF) NO Capillary blood glucose measurement by glucometer (mass/volume)2019-08-25 18:18:00* Test Item Value Reference Range Interpretation Comments Bedside Glucose (test code = 22385-0) 89 70-120 Meter ID: [id number] [facility] 2019-08-25 11:57:00* Test Item Value Reference Range Interpretation Comments Bedside Glucose (test code = 48545-6) 321 70-120 H Meter ID: [id number] [facility] Culture 2019-08-25 08:09:00* Test Item Value Reference Range Interpretation Comments Urine Culture (test code = 630-4) No Result Data Provided [facility] Tomballodium [id number] 05:40:00* Test Item Value Reference Range Interpretation Comments Sodium Level (test code = 2951-2) 139 136-145 [facility] [id number] 05:40:00* Test Item Value Reference Range Interpretation Comments Potassium Level (test code = 2823-3) 3.9 3.5-5.1 [facility]loride [id number] 05:40:00* Test Item Value Reference Range Interpretation Comments Chloride Level (test code = 2075-0) 108 98-107 H [facility]viewCarbon Dioxide [id number] 05:40:00* Test Item Value Reference Range Interpretation Comments Carbon Dioxide Level (test code = 2028-9) 28 22-29 [facility]viewAnion [id number] 05:40:00* Test Item Value Reference Range Interpretation Comments Anion Gap (test code = 60246-9) 6.9 8-16 L [facility]view[facility] Urea [id number] 05:40:00* Test Item Value Reference Range Interpretation Comments Blood Urea Nitrogen (test code = 3094-0) 14 7-26 [facility]view[facility]inine2020-03-17 05:40:00* Test Item Value Reference Range Interpretation Comments Creatinine (test code = 2160-0) 0.77 0.57-1.11 [facility]BUN/Creatinine [id number] 05:40:00* Test Item Value Reference Range Interpretation Comments BUN/Creatinine Ratio (test code = 3097-3) 18 6-25 [facility]viewEstimat Glomerular Filtration Rate 2019-08-25 05:40:00* Test Item Value Reference Range Interpretation Comments Estimat Glomerular Filtration Rate (test code = 342915745) > 60 >60 Ranges were taken from the National Kidney Disease Education Program and the [facility] literature.Reference ranges:60 or greater: Dfpbqy21-24 ( for 3 consecutive months): Chronic kidney disease 15 or less: Kidney failureCHRIST[facility] – LongviewGlucose [id number] 05:40:00* Test Item Value Reference Range Interpretation Comments Glucose Level (test code = EJB6798) 245 74-118 H [facility]viewCalcium [id number] 05:40:00* Test Item Value Reference Range Interpretation Comments Calcium Level (test code = 63148-2) 8.7 8.4-10.2 [facility]viewMagnesium [id number] 05:40:00* Test Item Value Reference Range Interpretation Comments Magnesium Level (test code = 77746-9) 1.7 1.3-2.1 [facility]viewWhite Blood [id number] 05:29:00* Test Item Value Reference Range Interpretation Comments White Blood Count (test code = 6690-2) 4.87 4.8-10.8 [facility]view[facility] Blood [id number] 05:29:00* Test Item Value Reference Range Interpretation Comments Red Blood Count (test code = 789-8) 4.37 3.6-5.1 [facility]viewHemoglobin2020-03-17 05:29:00* Test Item Value Reference Range Interpretation Comments Hemoglobin (test code = 85650-1) 12.6 12.0-16.0 [facility]viewHematocrit2020-03-17 05:29:00* Test Item Value Reference Range Interpretation Comments Hematocrit (test code = 4544-3) 38.9 34.2-44.1 [facility]viewMean Corpuscular [id number] 05:29:00* Test Item Value Reference Range Interpretation Comments Mean Corpuscular Volume (test code = 787-2) 89.0 81-99 [facility] [facility]Mean Corpuscular Ttvxrpncuw8373-80-75 05:29:00* Test Item Value Reference Range Interpretation Comments Mean Corpuscular Hemoglobin (test code = 785-6) 28.8 28-32 [facility]Mean Corpuscular Hemoglobin Concent 2019-08-25 05:29:00* Test Item Value Reference Range Interpretation Comments Mean Corpuscular Hemoglobin Concent (test code = 786-4) 32.4 31-35 [facility]viewRed Cell Distribution Demac7358-64-60 05:29:00* Test Item Value Reference Range Interpretation Comments Red Cell Distribution Width (test code = 29993-9) 12.4 11.7 -14.4 [facility] LongviewPlatelet Mottj8303-68-47 05:29:00* Test Item Value Reference Range Interpretation Comments Platelet Count (test code = 777-3) 171 140-360 [facility]viewNeutrophils (%) (Auto)2019-08-25 05:29:00 * Test Item Value Reference Range Interpretation Comments Neutrophils (%) (Auto) (test code = 55291-3) 53.3 38.7-80.0 [facility]viewLymphocytes (%) (Auto)2019-08-25 05:29:00 * Test Item Value Reference Range Interpretation Comments Lymphocytes (%) (Auto) (test code = 736-9) 38.8 18.0-39.1 [facility]viewMonocytes (%) (Auto)2019-08-25 05:29:00* Test Item Value Reference Range Interpretation Comments Monocytes (%) (Auto) (test code = 5905-5) 5.3 4.4-11.3 [facility]viewEosinophils (%) (Auto)2019-08-25 05:29:00 * Test Item Value Reference Range Interpretation Comments Eosinophils (%) (Auto) (test code = 713-8) 1.8 0.0-6.0 [facility]viewBasophils (%) (Auto)2019-08-25 05:29:00* Test Item Value Reference Range Interpretation Comments Basophils (%) (Auto) (test code = 706-2) 0.2 0.0-1.0 [facility]viewIM GRANULOCYTES %2019-08-25 05:29:00* Test Item Value Reference Range Interpretation Comments IM GRANULOCYTES % (test code = IM GRANULOCYTES %) 0.6 0.0- 1.0 [facility]viewNeutrophils # (Auto)2019-08-25 05:29:00* Test Item Value Reference Range Interpretation Comments Neutrophils # (Auto) (test code = 751-8) 2.6 2.1-6.9 [facility]viewLymphocytes # (Auto)2019-08-25 05:29:00* Test Item Value Reference Range Interpretation Comments Lymphocytes # (Auto) (test code = 17757-8) 1.9 1.0-3.2 [facility]viewMonocytes # (Auto)2019-08-25 05:29:00* Test Item Value Reference Range Interpretation Comments Monocytes # (Auto) (test code = 742-7) 0.3 0.2-0.8 [facility]viewEosinophils # (Auto)2019-08-25 05:29:00* Test Item Value Reference Range Interpretation Comments Eosinophils # (Auto) (test code = 711-2) 0.1 0.0-0.4 [facility]viewBasophils # (Auto)2019-08-25 05:29:00* Test Item Value Reference Range Interpretation Comments Basophils # (Auto) (test code = 704-7) 0.0 0.0-0.1 [facility]viewAbsolute Immature Granulocyte (auto 2019-08-25 05:29:00* Test Item Value Reference Range Interpretation Comments Absolute Immature Granulocyte (auto (yonis t code = Absolute Immature Granulocyte (auto) 0.03 0-0.1 [facility]viewBlood leukocytes automated count (number/volume)2019-08-25 04:55:00* Test Item Value Reference Range Interpretation Comments White Blood Count (test code = 6690-2) 4.87 4.8-10.8 [facility]viewBlglencoe [facility] erythrocytes automated count (number/volume)2019-08-25 04:55:00* Test Item Value Reference Range Interpretation Comments Red Blood Count (test code = 789-8) 4.37 3.6-5.1 [facility] (moles/volume)2019-08-25 04:55:00* Test Item Value Reference Range Interpretation Comments Hemoglobin (test code = 62689-2) 12.6 12.0-16.0 [facility] LongviewAutomated blood hematocrit (volume fraction)2019-08-25 04:55:00* Test Item Value Reference Range Interpretation Comments Hematocrit (test code = 4544-3) 38.9 34.2-44.1 [facility] LongviewAutomated erythrocyte mean corpuscular ywbqpe6633-98-86 04:55:00* Test Item Value Reference Range Interpretation Comments Mean Corpuscular Volume (test code = 787-2) 89.0 81-99 [facility] LongviewAutomated erythrocyte mean corpuscular hemoglobin (mass per erythrocyte)2019-08-25 04:55:00* Test Item Value Reference Range Interpretation Comments Mean Corpuscular Hemoglobin (test code = 785-6) 28.8 28-32 [facility] LongviewAutomated erythrocyte mean corpuscular hemoglobin concentration measurement (mass/volume)2019-08-25 04:55:00* Test Item Value Reference Range Interpretation Comments Mean Corpuscular Hemoglobin Concent (test code = 786-4) 32.4 31-35 [facility] LongviewRDW JojOq-Ipu7633-07-17 04:55:00* Test Item Value Reference Range Interpretation Comments Red Cell Distribution Width (test code = 60987-2) 12.4 11.7 -14.4 [facility] LongviewAutomated blood platelet count (count/volume)2019-08-25 04:55:00* Test Item Value Reference Range Interpretation Comments Platelet Count (test code = 777-3) 171 140-360 [facility] LongviewAutomated blood segmented neutrophil count as percentage of total kfaolcyekh0201-72-08 04:55:00* Test Item Value Reference Range Interpretation Comments Neutrophils (%) (Auto) (test code = 15335-7) 53.3 38.7-80.0 [facility] blood lymphocyte count as percentage ot total rpjpcysqxl5908-01-56 04:55:00* Test Item Value Reference Range Interpretation Comments Lymphocytes (%) (Auto) (test code = 736-9) 38.8 18.0-39.1 [facility] LongviewAutomated blood monocyte count as percentage of total romnrgnrtf3409-63-04 04:55:00* Test Item Value Reference Range Interpretation Comments Monocytes (%) (Auto) (test code = 5905-5) 5.3 4.4-11.3 [facility]viewAutformerly [facility]ed [facility] eosinophil count as percentage of total rmcujqsxtv6503-56-48 04:55:00* Test Item Value Reference Range Interpretation Comments Eosinophils (%) (Auto) (test code = 713-8) 1.8 0.0-6.0 [facility] LongviewAutomated blood basophil count as percentage of total sjgosowwqk2460-74-94 04:55:00* Test Item Value Reference Range Interpretation Comments Basophils (%) (Auto) (test code = 706-2) 0.2 0.0-1.0 [facility] LongviewFluoroscopic procedure less than one hour oozwkgye6490-40-44 04:55:00* Test Item Value Reference Range Interpretation Comments IM GRANULOCYTES % (test code = IM GRANULOCYTES %) 0.6 0.0- 1.0 [facility] LongviewAutomated blood neutrophil count 2019-08-25 04:55:00* Test Item Value Reference Range Interpretation Comments Neutrophils # (Auto) (test code = 751-8) 2.6 2.1-6.9 [facility]viewBlood lymphocytes count (number/volume) 2019-08-25 04:55:00* Test Item Value Reference Range Interpretation Comments Lymphocytes # (Auto) (test code = 02659-7) 1.9 1.0-3.2 [facility] LongviewBlood monocytes automated count (number/volume)2019-08-25 04:55:00* Test Item Value Reference Range Interpretation Comments Monocytes # (Auto) (test code = 742-7) 0.3 0.2-0.8 [facility] LongviewAutomated blood eosinophil count 2019-08-25 04:55:00* Test Item Value Reference Range Interpretation Comments Eosinophils # (Auto) (test code = 711-2) 0.1 0.0-0.4 [facility]viewAutomated blood basophil count (count/volume)2019-08-25 04:55:00* Test Item Value Reference Range Interpretation Comments Basophils # (Auto) (test code = 704-7) 0.0 0.0-0.1 [facility] LongviewFluoroscopic procedure less than one hour csxzwvcq3928-45-68 04:55:00* Test Item Value Reference Range Interpretation Comments Absolute Immature Granulocyte (auto (yonis t code = Absolute Immature Granulocyte (auto) 0.03 0-0.1 [facility] Tomballerum or plasma sodium measurement (moles/volume)2019-08-25 04:55:00* Test Item Value Reference Range Interpretation Comments Sodium Level (test code = 2951-2) 139 136-145 [facility] Tomballerum or plasma potassium measurement (moles/volume)2019-08-25 04:55:00* Test Item Value Reference Range Interpretation Comments Potassium Level (test code = 2823-3) 3.9 3.5-5.1 [facility] Tomballerum or plasma chloride measurement (moles/volume)2019-08-25 04:55:00* Test Item Value Reference Range Interpretation Comments Chloride Level (test code = 2075-0) 108 98-107 [facility] Tomballerum or plasma carbon dioxide, total measurement (moles/volume)2019-08-25 04:55:00* Test Item Value Reference Range Interpretation Comments Carbon Dioxide Level (test code = 2028-9) 28 22-29 [facility] Tomballerum or plasma anion vox1422-84-27 04:55:00* Test Item Value Reference Range Interpretation Comments Anion Gap (test code = 66408-4) 6.9 8-16 [facility] Tomballerum or plasma urea nitrogen measurement (mass/volume)2019-08-25 04:55:00* Test Item Value Reference Range Interpretation Comments Blood Urea Nitrogen (test code = 3094-0) 14 7-26 [facility] Tomballerum or plasma creatinine measurement (mass/volume)2019-08-25 04:55:00* Test Item Value Reference Range Interpretation Comments Creatinine (test code = 2160-0) 0.77 0.57-1.11 [facility] Tomballerum or plasma urea nitrogen/creatinine mass rkmkx2485-66-83 04:55:00* Test Item Value Reference Range Interpretation Comments BUN/Creatinine Ratio (test code = 3097-3) 18 6-25 [facility]viewEstimated glomerular filtration rate (GFR) nbskvjznaqmne6808-88-07 04:55:00* Test Item Value Reference Range Interpretation Comments Estimat Glomerular Filtration Rate (test code = 147288263) > 60 >60 Ranges were taken from the National Kidney Disease Education Program and the [facility] Foundation literature.Reference ranges:60 or greater: Xfwchk47-04 ( for 3 consecutive months): Chronic kidney disease 15 or less: Kidney failureCHRISTUS Good Shepherd [facility] Center – LongviewGlucose qcvpaonyrmy7826-83-07 04:55:00* Test Item Value Reference Range Interpretation Comments Glucose Level (test code = RML6953) 245 74-118 [facility] Tomballerum or plasma calcium measurement (mass/volume)2019-08-25 04:55:00* Test Item Value Reference Range Interpretation Comments Calcium Level (test code = 87888-0) 8.7 8.4-10.2 [facility] Tomballerum or plasma magnesium measurement (mass/volume)2019-08-25 04:55:00* Test Item Value Reference Range Interpretation Comments Magnesium Level (test code = 31555-6) 1.7 1.3-2.1 [facility] LongviewThyroid Stimulating Hormone (TSH) 2019-08-24 04:52:00* Test Item Value Reference Range Interpretation Comments Thyroid Stimulating Hormone (TSH) (test code = 50901-4) 3.016 0.350-4.940 [facility] LongviewHemoglobin A1c Wuezgtz8349-20-21 04:25:00 * Test Item Value Reference Range Interpretation Comments Hemoglobin A1c Percent (test code = Hemoglobin A1c Percent) 9.9 4.0-7.0 H [facility]viewPhosphorus Ruohy6767-81-29 04:24:00* Test Item Value Reference Range Interpretation Comments Phosphorus Level (test code = HVS7198) 2.9 2.3-4.7 [facility]viewTotal Qcumzaipp7890-12-21 04:24:00* Test Item Value Reference Range Interpretation Comments Total Bilirubin (test code = 1975-2) 0.3 0.2-1.2 [facility] LongviewAspartate Amino Transf (AST/SGOT) 2019-08-24 04:24:00* Test Item Value Reference Range Interpretation Comments Aspartate Amino Transf (AST/SGOT) (test code = Aspartate Amino Transf (AST/SGOT)) 11 5-34 [facility] LongviewAlanine Aminotransferase (ALT/SGPT) 2019-08-24 04:24:00* Test Item Value Reference Range Interpretation Comments Alanine Aminotransferase (ALT/SGPT) (test code = 1742-6) 7 0-55 [facility]viewTotal Ahviqxy2140-73-30 04:24:00* Test Item Value Reference Range Interpretation Comments Total Protein (test code = 2885-2) 5.6 6.5-8.1 L VERIFIED PREVIOUS RESULTSCHRISTUS [facility] LongviewAlbumin 2019-08-24 04:24:00* Test Item Value Reference Range Interpretation Comments Albumin (test code = 1751-7) 3.0 3.5-5.0 L VERIFIED PREVIOUS RESULTSCHRISTUS [facility] – LongviewGlobulin 2019-08-24 04:24:00* Test Item Value Reference Range Interpretation Comments Globulin (test code = 73764-0) 2.6 2.3-3.5 [facility] LongviewAlbumin/Globulin Iljul8037-88-79 04:24:00 * Test Item Value Reference Range Interpretation Comments Albumin/Globulin Ratio (test code = 1759-0) 1.2 0.8-2.0 [facility]viewAlkaline Dcktogtmmbm7049-33-91 04:24:00* Test Item Value Reference Range Interpretation Comments Alkaline Phosphatase (test code = 6768-6) 76 40-150 [facility] LongviewTriglycerides Khwhh5034-28-31 04:24:00* Test Item Value Reference Range Interpretation Comments Triglycerides Level (test code = 2571-8) 145 0-149 [facility] LongviewCholesterol Skdha8787-59-71 04:24:00* Test Item Value Reference Range Interpretation Comments Cholesterol Level (test code = 2093-3) 166 0-199 Less than 200 mg/dL Low Oivx166 - 239 mg/dL Borderline Eccc170 m g/dl and greater High Risk [facility] LongviewLDL Pjyrpeadkmw1108-62-05 04:24:00* Test Item Value Reference Range Interpretation Comments LDL Cholesterol (test code = 2089-1) 105 60-130 [facility] LongviewHDL Nsmjswmsyky3300-86-98 04:24:00* Test Item Value Reference Range Interpretation Comments HDL Cholesterol (test code = 2085-9) 32 40-60 L [facility]viewCholesterol/HDL Ugcnh6978-79-07 04:24:00 * Test Item Value Reference Range Interpretation Comments Cholesterol/HDL Ratio (test code = 9830-1) 5.2 3.0-3.6 H [facility] LongviewFluoroscopic procedure less than one hour pxxjhkce6832-97-82 03:10:00* Test Item Value Reference Range Interpretation Comments Hemoglobin A1c Percent (test code = Hemoglobin A1c Percent) 9.9 4.0-7.0 [facility]viewPhosphorus tbomehbisld6614-22-56 03:10:00 * Test Item Value Reference Range Interpretation Comments Phosphorus Level (test code = XXQ7889) 2.9 2.3-4.7 [facility] Tomballerum or plasma total bilirubin measurement (mass/volume)2019-08-24 03:10:00* Test Item Value Reference Range Interpretation Comments Total Bilirubin (test code = 1975-2) 0.3 0.2-1.2 [facility] LongviewFluoroscopic procedure less than one hour ilatbvpe9644-60-76 03:10:00* Test Item Value Reference Range Interpretation Comments Aspartate Amino Transf (AST/SGOT) (test code = Aspartate Amino Transf (AST/SGOT)) 11 5-34 [facility] Tomballerum or plasma alanine aminotransferase measurement (enzymatic activity/volume)2019-08-24 03:10:00* Test Item Value Reference Range Interpretation Comments Alanine Aminotransferase (ALT/SGPT) (test code = 1742-6) 7 0-55 [facility] Tomballerum or plasma protein measurement (mass/volume)2019-08-24 03:10:00* Test Item Value Reference Range Interpretation Comments Total Protein (test code = 2885-2) 5.6 6.5-8.1 VERIFIED PREVIOUS RESULTSHCA Houston Healthcare Tomballerum or plasma albumin measurement (mass/volume)2019-08-24 03:10:00* Test Item Value Reference Range Interpretation Comments Albumin (test code = 1751-7) 3.0 3.5-5.0 VERIFIED PREVIOUS RESULTSCHRISTUS [facility] LongviewPlasma globulin measurement (mass/volume)2019-08-24 03:10:00* Test Item Value Reference Range Interpretation Comments Globulin (test code = 35125-0) 2.6 2.3-3.5 [facility] Tomballerum or plasma albumin/globulin mass xlobl4671-63-10 03:10:00* Test Item Value Reference Range Interpretation Comments Albumin/Globulin Ratio (test code = 1759-0) 1.2 0.8-2.0 [facility] Tomballerum or plasma alkaline phosphatase measurement (enzymatic activity/volume)2019-08-24 03:10:00* Test Item Value Reference Range Interpretation Comments Alkaline Phosphatase (test code = 6768-6) 76 40-150 [facility] Tomballerum or plasma triglyceride measurement (mass/volume)2019-08-24 03:10:00* Test Item Value Reference Range Interpretation Comments Triglycerides Level (test code = 2571-8) 145 0-149 [facility] Tomballerum or plasma cholesterol measurement (mass/volume)2019-08-24 03:10:00* Test Item Value Reference Range Interpretation Comments Cholesterol Level (test code = 2093-3) 166 0-199 Less than 200 mg/dL Low Xtip096 - 239 mg/dL Borderline Eelj712 m g/dl and greater High Risk [facility] Tomballerum or plasma cholesterol in LDL measurement (mass/volume) 2019-08-24 03:10:00* Test Item Value Reference Range Interpretation Comments LDL Cholesterol (test code = 2089-1) 105 60-130 [facility] Tomballerum or plasma cholesterol in HDL measurement (mass/volume)2019-08-24 03:10:00* Test Item Value Reference Range Interpretation Comments HDL Cholesterol (test code = 2085-9) 32 40-60 [facility] Tomballerum or plasma total cholesterol/cholesterol in HDL mass aplxx6662-72-93 03:10:00* Test Item Value Reference Range Interpretation Comments Cholesterol/HDL Ratio (test code = 9830-1) 5.2 3.0-3.6 [facility] Tomballerum or plasma thyrotropin measurement by detection limit <= 0.005 miu/l (units/volume)2019-08-24 03:10:00* Test Item Value Reference Range Interpretation Comments Thyroid Stimulating Hormone (TSH) (test code = 20652-8) 3.016 0.350-4.940 [facility]viewCT ABDOMEN/PELVIS QE8252-41-73 02:37:00 [facility] [address] [address] Patient Name: PAOLA STILES MR #: [id number] : [birth year] Age/Sex: 64/F Req #: [id number] Adm Physician: Ordered by: JUSTIN MARAVILLA MD Report #: [id number] Location: ER Room/Bed: Procedure: 0314-[address]/CT ABDOMEN/PELVIS WO Exam Date: 08/22/19 Exam Time: 2359 REPORT STATUS: Signed EXAM: CT Abdomen and Pelvis WITHOUT contrast INDICATION: Upper abdomina l pain with nausea and vomiting. COMPARISON: None. TECHNIQUE: Abdomen and pelvis were scanned utilizing a multidetector helical scanner from the cookie g base to the pubic symphysis without administration of IV contrast. Absence o f intravenous contrast decreases sensitivity for detection of focal lesions an d vascular pathology. Coronal and sagittal reformations were obtained. Routine protocol was performed. IV CONTRAST: None. ORAL CO NTRAST: Gastrografin RADIATION DOSE: Total DLP: 727 mGy*cm Estimated effective dose: (DLP x 0.015 x size factor) mSv COMPLICATIONS: None FINDINGS: LINES and TUBES: None. LOWER THORAX : Coronary atherosclerosis. HEPATOBILIARY: No focal hepatic lesions. No biliary ductal dilation. GALLBLADDER: Status post cholecystectomy. SPLEEN: No splenomegaly. PANCREAS: No focal masses or ductal dilatation. Fatty atrophy. ADRENALS: No adrenal nodules KIDNEYS/URETERS: Dustin ateral perinephric stranding. No evidence of stone, hydronephrosis, or mass. GI TRACT: No abnormal distention, wall thickening, or evidence of bowel ob struction. Appendix is normal. Small hiatal hernia with mild distal esop hageal thickening. PELVIC ORGANS/BLADDER: Unremarkable. LYMPH NODES: N o lymphadenopathy. 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 Mild atherosclerotic calcifications in the abdominal aorta. PERITONEUM / RETROPERITONEUM: No free air or fluid. BONES: Unremarkable. SOFT TISSUES: Unremarkable. IMPRESSION: Bilateral mild perinephric stranding, which is nonspecific, but may represent infectious or inflammatory etiology in the appropriate clinical setting. Small hiatal her selena with mild distal esophageal wall thickening, which may represent esophagit is in the setting of reflux. Coronary atherosclerosis. Signed by: Dr. Mp Stone MD on 08/23/2019 2:44 AM Dictated By: MP chávez Signed By: MP STONE MD on 08/23/19243 Transcribed By: ELDER on 08/08 COPY TO: JUSTIN MARAVILLA MD Prothrombin Time 2019-08-23 00:03:00* Test Item Value Reference Range Interpretation Comments Prothrombin Time (test code = 5902-2) 12.6 11.9-14.5 [facility] LongviewProthromb Time International Ratio 2019-08-23 00:03:00* Test Item Value Reference Range Interpretation Comments Prothromb Time International Ratio (test code = 6301-6) 0.89 Oral Anticoagulant Therapy INR Values:1. Low Intensity Therapy 1.5 - 2.02 . Moderate Intensity Therapy 2.0 - 3.03. High Intensity Therapy(1) 2.5 - 3. 54. High Intensity Therapy(2) 3.0 - 4.05. Panic Value INR > 5.0 [facility] LongviewActivated Partial Thromboplast Time 2019-08-23 00:03:00* Test Item Value Reference Range Interpretation Comments Activated Partial Thromboplast Time (test code = 71755-8) 28.9 23.8-35.5 [facility] LongviewBacterial urine pxwdqnz3297-66-09 00:00:00* Test Item Value Reference Range Interpretation Comments Urine Culture (test code = 630-4) ESCHERICHIA COLI [facility] LongviewCreatine Kinase [id number] 23:55:00* Test Item Value Reference Range Interpretation Comments Creatine Kinase MB (test code = 48557-3) 1.00 0-5.0 [facility] LongviewTroponin [id number] 23:55:00* Test Item Value Reference Range Interpretation Comments Troponin I (test code = MYR1363) 0.010 0-0.300 [facility] LongviewCreatine Eyewco7050-13-22 23:52:00* Test Item Value Reference Range Interpretation Comments Creatine Kinase (test code = 2157-6) 19 29-168 L [facility] LongviewAmylase Cdqow9862-34-60 23:46:00* Test Item Value Reference Range Interpretation Comments Amylase Level (test code = 1798-8) 65 25-125 [facility] LongviewLipase2020-03-14 23:46:00* Test Item Value Reference Range Interpretation Comments Lipase (test code = 3040-3) 13 8-78 [facility] LongviewUrine [id number] 23:45:00* Test Item Value Reference Range Interpretation Comments Urine WBC (test code = 5821-4) 21-50 0-5 H [facility] LongviewUrine [id number] 23:45:00* Test Item Value Reference Range Interpretation Comments Urine RBC (test code = 64542-8) 0-5 0-5 [facility] LongviewUrine Ljvcyjdh4360-59-24 23:45:00* Test Item Value Reference Range Interpretation Comments Urine Bacteria (test code = 97777-6) MANY NONE H [facility] LongviewUrine Epithelial Mvtvv4962-88-91 23:45:00 * Test Item Value Reference Range Interpretation Comments Urine Epithelial Cells (test code = 54775-0) FEW NONE [facility] LongviewUrine Dzxxl9101-53-72 23:40:00* Test Item Value Reference Range Interpretation Comments Urine Color (test code = 5778-6) YELLOW YELLOW [facility] LongviewUrine Mzmlypt8046-45-52 23:40:00* Test Item Value Reference Range Interpretation Comments Urine Clarity (test code = 86510-3) CLEAR CLEAR [facility] LongviewUrine Specific Xwgywkw8157-85-15 23:40:00 * Test Item Value Reference Range Interpretation Comments Urine Specific [place] (test code = 5811-5) 1.025 1.010-1.02 5 [facility] LongviewUrine [id number] 23:40:00* Test Item Value Reference Range Interpretation Comments Urine pH (test code = 87602-7) 6 5-7 [facility] LongviewUrine Leukocyte Jpcljmej6285-23-88 23:40:00* Test Item Value Reference Range Interpretation Comments Urine Leukocyte Esterase (test code = 5799-2) NEGATIVE NEGATIVE [facility]view[facility] Vpdbynk0638-53-00 23:40:00* Test Item Value Reference Range Interpretation Comments Urine Nitrite (test code = 38521-2) NEGATIVE NEGATIVE [facility]viewUrine Nawgqmz3684-77-40 23:40:00* Test Item Value Reference Range Interpretation Comments Urine Protein (test code = 5804-0) TRACE NEGATIVE H [facility]viewUrine Glucose (UA)2019-08-22 23:40:00* Test Item Value Reference Range Interpretation Comments Urine Glucose (UA) (test code = 2349-9) 3+ NEGATIVE H [facility]viewUrine Gjfscyz6666-69-74 23:40:00* Test Item Value Reference Range Interpretation Comments Urine Ketones (test code = 09906-3) 1+ NEGATIVE H [facility]viewUrine Hbmwuvzqhkly1164-99-42 23:40:00* Test Item Value Reference Range Interpretation Comments Urine Urobilinogen (test code = 92428-5) 0.2 0.2-1 [facility]viewUrine Umcfowhqj8887-89-41 23:40:00* Test Item Value Reference Range Interpretation Comments Urine Bilirubin (test code = 1978-6) NEGATIVE NEGATIVE [facility]viewU[facility] Edmua3207-68-68 23:40:00* Test Item Value Reference Range Interpretation Comments Urine Blood (test code = 73990-6) TRACE NEGATIVE H [facility] LongviewProthrombin time (PT) in platelet poor plasma by coagulation muryy2632-52-05 23:21:00* Test Item Value Reference Range Interpretation Comments Prothrombin Time (test code = 5902-2) 12.6 11.9-14.5 [facility]viewINR in Platelet poor plasma by Coagulation pfqxj8912-11-32 23:21:00* Test Item Value Reference Range Interpretation Comments Prothromb Time International Ratio (test code = 6301-6) 0.89 Oral Anticoagulant Therapy INR Values:1. Low Intensity Therapy 1.5 - 2.02 . Moderate Intensity Therapy 2.0 - 3.03. High Intensity Therapy(1) 2.5 - 3. 54. High Intensity Therapy(2) 3.0 - 4.05. Panic Value INR > 5.0 [facility] LongviewActivated partial thromboplastin time (aPTT) in platelet poor plasma by coagulation vfavb9476-18-68 23:21:00* Test Item Value Reference Range Interpretation Comments Activated Partial Thromboplast Time (test code = 12026-2) 28.9 23.8-35.5 [facility] Tomballerum or plasma creatine kinase measurement (enzymatic activity/volume)2019-08-22 23:02:00* Test Item Value Reference Range Interpretation Comments Creatine Kinase (test code = 2157-6) 19 29-168 [facility] Tomballerum or plasma creatine kinase MB measurement (mass/volume)2019-08-22 23:02:00* Test Item Value Reference Range Interpretation Comments Creatine Kinase MB (test code = 36392-0) 1.00 0-5.0 [facility]viewTroponin I measurement by highly sensitive enzyme ivoesukzxpg7665-34-42 23:02:00* Test Item Value Reference Range Interpretation Comments Troponin I (test code = 92724-6) 0.010 0-0.300 [facility] Tomballerum or plasma amylase measurement (enzymatic activity/volume)2019-08-22 23:02:00* Test Item Value Reference Range Interpretation Comments Amylase Level (test code = 1798-8) 65 25-125 [facility] Tomballerum or plasma lipase measurement (enzymatic activity/volume)2019-08-22 23:02:00* Test Item Value Reference Range Interpretation Comments Lipase (test code = 3040-3) 13 8-78 [facility] LongviewBlood Chvhahe7362-78-75 00:46:00* Test Item Value Reference Range Interpretation Comments Blood Culture (test code = 90823156) NO GROWTH AFTER 5 DAYS, FINAL REPORT [facility] LongviewBedside Subfvzh7045-95-38 11:24:00* Test Item Value Reference Range Interpretation Comments Bedside Glucose (test code = 23170-6) 291 70-120 H Meter ID: [id number] LongviewUrine Culture 2019-04-20 09:14:00* Test Item Value Reference Range Interpretation Comments Urine Culture (test code = 630-4) No Result Data Provided [facility] Tomballodium Zpxtt1916-60-34 07:45:00* Test Item Value Reference Range Interpretation Comments Sodium Level (test code = 2951-2) 138 136-145 [facility]viewPotassium Xxytt1763-26-05 07:45:00* Test Item Value Reference Range Interpretation Comments Potassium Level (test code = 2823-3) 3.9 3.5-5.1 [facility] LongviewChloride Ukxra7823-99-12 07:45:00* Test Item Value Reference Range Interpretation Comments Chloride Level (test code = 2075-0) 101 98-107 [facility] LongviewCarbon Dioxide Szkti6689-42-71 07:45:00* Test Item Value Reference Range Interpretation Comments Carbon Dioxide Level (test code = 2028-9) 32 22-29 H [facility] LongviewAnion Hdv6329-14-06 07:45:00* Test Item Value Reference Range Interpretation Comments Anion Gap (test code = 67170-8) 8.9 8-16 [facility]viewBlood Urea Lwvtsfhv2281-25-77 07:45:00* Test Item Value Reference Range Interpretation Comments Blood Urea Nitrogen (test code = 3094-0) 11 7-26 [facility] LongviewCreatinine2019-11-11 07:45:00* Test Item Value Reference Range Interpretation Comments Creatinine (test code = 2160-0) 0.76 0.57-1.11 [facility]viewBUN/Creatinine Yqsxs9309-97-04 07:45:00* Test Item Value Reference Range Interpretation Comments BUN/Creatinine Ratio (test code = 3097-3) 14 6-25 [facility] LongviewEstimat Glomerular Filtration Rate 2019-04-20 07:45:00* Test Item Value Reference Range Interpretation Comments Estimat Glomerular Filtration Rate (test code = 861328031) > 60 >60 Ranges were taken from the National Kidney Disease Education Program and the [facility] literature.Reference ranges:60 or greater: Bhfuxy83-29 ( for 3 consecutive months): Chronic kidney disease 15 or less: Kidney failureCHRISTUS [facility] – LongviewGlucose Kolzh0028-26-57 07:45:00* Test Item Value Reference Range Interpretation Comments Glucose Level (test code = VID6832) 318 74-118 H [facility] LongviewCalcium Zjyey4031-10-98 07:45:00* Test Item Value Reference Range Interpretation Comments Calcium Level (test code = 88191-8) 9.0 8.4-10.2 [facility] LongviewWhite Blood Pgwck6154-92-35 07:29:00* Test Item Value Reference Range Interpretation Comments White Blood Count (test code = 6690-2) 3.56 4.8-10.8 L [facility] LongviewRed Blood Iurqq3077-89-73 07:29:00* Test Item Value Reference Range Interpretation Comments Red Blood Count (test code = 789-8) 4.22 3.6-5.1 [facility] LongviewHemoglobin2019-11-11 07:29:00* Test Item Value Reference Range Interpretation Comments Hemoglobin (test code = 64151-6) 12.3 12.0-16.0 [facility] LongviewHematocrit2019-11-11 07:29:00* Test Item Value Reference Range Interpretation Comments Hematocrit (test code = 4544-3) 37.0 34.2-44.1 [facility] LongviewMean Corpuscular Vzspbi9983-38-19 07:29:00* Test Item Value Reference Range Interpretation Comments Mean Corpuscular Volume (test code = 787-2) 87.7 81-99 [facility] LongviewMean Corpuscular Bogpxdhpzt6249-69-97 07:29:00* Test Item Value Reference Range Interpretation Comments Mean Corpuscular Hemoglobin (test code = 785-6) 29.1 28-32 [facility] LongviewMean Corpuscular Hemoglobin Concent 2019-04-20 07:29:00* Test Item Value Reference Range Interpretation Comments Mean Corpuscular Hemoglobin Concent (test code = 786-4) 33.2 31-35 [facility] LongviewRed Cell Distribution Qzscr9337-65-25 07:29:00* Test Item Value Reference Range Interpretation Comments Red Cell Distribution Width (test code = 76851-9) 12.5 11.7 -14.4 [facility] LongviewPlatelet Xwpxv2318-10-80 07:29:00* Test Item Value Reference Range Interpretation Comments Platelet Count (test code = 777-3) 188 140-360 [facility] LongviewNeutrophils (%) (Auto)2019-04-20 07:29:00 * Test Item Value Reference Range Interpretation Comments Neutrophils (%) (Auto) (test code = 55751-1) 45.2 38.7-80.0 [facility] LongviewLymphocytes (%) (Auto)2019-04-20 07:29:00 * Test Item Value Reference Range Interpretation Comments Lymphocytes (%) (Auto) (test code = 736-9) 42.4 18.0-39.1 H [facility] LongviewMonocytes (%) (Auto)2019-04-20 07:29:00* Test Item Value Reference Range Interpretation Comments Monocytes (%) (Auto) (test code = 5905-5) 9.8 4.4-11.3 [facility]viewEosinophils (%) (Auto)2019-04-20 07:29:00 * Test Item Value Reference Range Interpretation Comments Eosinophils (%) (Auto) (test code = 713-8) 1.7 0.0-6.0 [facility]viewBasophils (%) (Auto)2019-04-20 07:29:00* Test Item Value Reference Range Interpretation Comments Basophils (%) (Auto) (test code = 706-2) 0.6 0.0-1.0 [facility] LongviewIM GRANULOCYTES %2019-04-20 07:29:00* Test Item Value Reference Range Interpretation Comments IM GRANULOCYTES % (test code = IM GRANULOCYTES %) 0.3 0.0- 1.0 [facility]viewNeutrophils # (Auto)2019-04-20 07:29:00* Test Item Value Reference Range Interpretation Comments Neutrophils # (Auto) (test code = 751-8) 1.6 2.1-6.9 L [facility] LongviewLymphocytes # (Auto)2019-04-20 07:29:00* Test Item Value Reference Range Interpretation Comments Lymphocytes # (Auto) (test code = 39548-1) 1.5 1.0-3.2 [facility] LongviewMonocytes # (Auto)2019-04-20 07:29:00* Test Item Value Reference Range Interpretation Comments Monocytes # (Auto) (test code = 742-7) 0.4 0.2-0.8 [facility]viewEosinophils # (Auto)2019-04-20 07:29:00* Test Item Value Reference Range Interpretation Comments Eosinophils # (Auto) (test code = 711-2) 0.1 0.0-0.4 [facility]viewBasophils # (Auto)2019-04-20 07:29:00* Test Item Value Reference Range Interpretation Comments Basophils # (Auto) (test code = 704-7) 0.0 0.0-0.1 [facility] LongviewAbsolute Immature Granulocyte (auto 2019-04-20 07:29:00* Test Item Value Reference Range Interpretation Comments Absolute Immature Granulocyte (auto (yonis t code = Absolute Immature Granulocyte (auto) 0.01 0-0.1 [facility] LongviewBlood Ujovwpa2944-30-95 00:46:00* Test Item Value Reference Range Interpretation Comments Blood Culture (test code = 35038346) NO GROWTH AFTER 48 HOURS [facility] LongviewTotal Mujjvfdzz1333-52-53 01:56:00* Test Item Value Reference Range Interpretation Comments Total Bilirubin (test code = 1975-2) 0.3 0.2-1.2 [facility] LongviewAspartate Amino Transf (AST/SGOT) 2019-04-19 01:56:00* Test Item Value Reference Range Interpretation Comments Aspartate Amino Transf (AST/SGOT) (test code = Aspartate Amino Transf (AST/SGOT)) 11 5-34 [facility] LongviewAlanine Aminotransferase (ALT/SGPT) 2019-04-19 01:56:00* Test Item Value Reference Range Interpretation Comments Alanine Aminotransferase (ALT/SGPT) (test code = 1742-6) 6 0-55 [facility] LongviewTotal Gteoken5058-03-88 01:56:00* Test Item Value Reference Range Interpretation Comments Total Protein (test code = 2885-2) 5.7 6.5-8.1 L VERIFIED PREVIOUS RESULTSCHRISTUS [facility] – LongviewAlbumin 2019-04-19 01:56:00* Test Item Value Reference Range Interpretation Comments Albumin (test code = 1751-7) 2.9 3.5-5.0 L [facility] LongviewGlobulin2019-11-10 01:56:00* Test Item Value Reference Range Interpretation Comments Globulin (test code = 45526-7) 2.8 2.3-3.5 [facility] LongviewAlbumin/Globulin Llezk6762-01-80 01:56:00 * Test Item Value Reference Range Interpretation Comments Albumin/Globulin Ratio (test code = 1759-0) 1.0 0.8-2.0 [facility] LongviewAlkaline Yfboupoakme9304-75-34 01:56:00* Test Item Value Reference Range Interpretation Comments Alkaline Phosphatase (test code = 6768-6) 74 40-150 [facility] LongviewCreatine Gnupwo7820-88-35 16:33:00* Test Item Value Reference Range Interpretation Comments Creatine Kinase (test code = 2157-6) 16 29-168 L [facility] LongviewCreatine Kinase XO9835-05-51 16:33:00* Test Item Value Reference Range Interpretation Comments Creatine Kinase MB (test code = 79680-0) 0.60 0-5.0 [facility] LongviewTroponin Q8471-43-67 16:33:00* Test Item Value Reference Range Interpretation Comments Troponin I (test code = EHK2402) < 0.001 0-0.300 [facility] LongviewHemoglobin A1c Bwtoncj5911-24-14 10:28:00 * Test Item Value Reference Range Interpretation Comments Hemoglobin A1c Percent (test code = Hemoglobin A1c Percent) 11.2 4.0-7.0 H [facility] LongviewLactic Acid Iqioj2596-29-81 07:24:00* Test Item Value Reference Range Interpretation Comments Lactic Acid Level (test code = Lactic Acid Level) 0.8 0.5- 2.0 [facility] LongviewLactic Acid Cqvbf0159-57-11 07:24:00* Test Item Value Reference Range Interpretation Comments Lactic Acid Level (test code = Lactic Acid Level) 0.8 0.5- 2.0 [facility] LongviewFluoroscopic procedure less than one hour rawywgen1931-92-59 05:55:00* Test Item Value Reference Range Interpretation Comments Lactic Acid Level (test code = Lactic Acid Level) 0.8 0.5- 2.0 [facility] LongviewB-Type Natriuretic Cugouzu5402-39-56 03:21:00* Test Item Value Reference Range Interpretation Comments B-Type Natriuretic Peptide (test code = 52002-0) 43.9 0-100 [facility] LongviewB-Type Natriuretic Picgycu2756-99-68 03:21:00* Test Item Value Reference Range Interpretation Comments B-Type Natriuretic Peptide (test code = 07774-5) 43.9 0-100 [facility] LongviewUrine CLG8317-61-41 02:28:00* Test Item Value Reference Range Interpretation Comments Urine WBC (test code = 5821-4) 21-50 0-5 H [facility] LongviewUrine AMN9467-70-59 02:28:00* Test Item Value Reference Range Interpretation Comments Urine RBC (test code = 25079-0) 6-10 0-5 H [facility] LongviewUrine Uxnbvyra6142-96-75 02:28:00* Test Item Value Reference Range Interpretation Comments Urine Bacteria (test code = 00803-2) MANY NONE H [facility] LongviewUrine Epithelial Lajuo8783-57-45 02:28:00 * Test Item Value Reference Range Interpretation Comments Urine Epithelial Cells (test code = 28196-0) MODERATE NONE [facility] LongviewCT BRAIN CO4160-67-14 02:26:00 [place] [address] Patient Name: PAOLA STILES MR #: [id number] : 1955 Age/Sex: 64/F Req #: [id number] Adm Physician: Ordered by: YOEL TORRES MD Report #: [id number] Location: ER Room/Bed: Procedure: [id number] CT/CT BRAIN WO Exam Date: 04/18/19 Exam Time: 0120 REPORT STATUS: Signed EXAMINATION: Hea d CT without contrast. HISTORY:Altered mental status. COMPARISON: None. TECHNIQUE: Multidetector axial images were obtained from the foramen mag num to the vertex without contrast. The images were reconstructed using brain and bone algorithms. Thin section brain images were reformatted into coronal and sagittal planes. Dose modulation, iterative reconstruction, and/or weigh t based adjustment of the mA/kV was utilized to reduce the radiation dose to a s low as reasonably achievable. Intravenous contrast: None IMAGE Q UALITY: Acceptable. FINDINGS: Skull/scalp: No lytic or blastic. lesio ns. No surgical changes. Parenchyma: Nonspecific few, scattered supratent orial white matter hypodensity are likely related to small vessel ischemic vishal nges. No acute hemorrhage, mass or acute major vascular territorial infarct. Arteries: No density suggestive of thrombosis. Atherosclerotic calcificat ion in bilateral carotid siphon and V4 segment of the vertebral arteries. Dural sinuses: No abnormal density suggestive of thrombosis. Ventricl es: No hydrocephalus or displacement. Extra-axial spaces: No abnormal dens ity. Brain volume: Normal for age. Craniocervical junction: No mas s, Chiari malformation, or basilar invagination. Sella: No mass. Paranasal/mastoid sinuses: Imaged portions unremarkable. IMPRESSION: N o acute intracranial abnormality. Mild supratentorial white matter microvas cular ischemic changes. Signed by: Dr. Skye Harris M.D. on 04/18/2019 2 :29 AM Dictated By: SKYE HARRIS MD 0229 Transcribed By: ELDER on 04/18/19 0229 [employer] Y TO: YOEL TORRES MD Urine Wdvsj2702-47-42 01:54:00* Test Item Value Reference Range Interpretation Comments Urine Color (test code = 5778-6) YELLOW YELLOW [facility] LongviewUrine Nogniiw2990-02-34 01:54:00* Test Item Value Reference Range Interpretation Comments Urine Clarity (test code = 08498-0) CLEAR CLEAR [facility] LongviewUrine Specific Gdpgsut8886-70-78 01:54:00 * Test Item Value Reference Range Interpretation Comments Urine Specific [place] (test code = 5811-5) <=1.005 1.010-1.02 5 [facility] LongviewUrine kX1276-71-64 01:54:00* Test Item Value Reference Range Interpretation Comments Urine pH (test code = 95475-9) 5.5 5-7 [facility] Leukocyte Ufftkwvw7259-71-87 01:54:00* Test Item Value Reference Range Interpretation Comments Urine Leukocyte Esterase (test code = 23099-7) NEGATIVE NEGATIV E [facility] LongviewUrine Qtbefsa0971-05-73 01:54:00* Test Item Value Reference Range Interpretation Comments Urine Nitrite (test code = 60599-8) POSITIVE NEGATIVE H [facility] LongviewUrine Gtpteba8947-74-31 01:54:00* Test Item Value Reference Range Interpretation Comments Urine Protein (test code = 42652-7) NEGATIVE NEGATIVE [facility] LongviewUrine Glucose (UA)2019-04-18 01:54:00* Test Item Value Reference Range Interpretation Comments Urine Glucose (UA) (test code = 10818-2) 3+ NEGATIVE H [facility] LongviewUrine Xbriuyy3438-43-75 01:54:00* Test Item Value Reference Range Interpretation Comments Urine Ketones (test code = 10264-0) NEGATIVE NEGATIVE [facility] LongviewUrine Qiykgcneibpc2800-97-26 01:54:00* Test Item Value Reference Range Interpretation Comments Urine Urobilinogen (test code = 33617-0) 0.2 0.2-1 [facility]viewUrine Zdlmnnzkv0536-16-11 01:54:00* Test Item Value Reference Range Interpretation Comments Urine Bilirubin (test code = 1977-8) NEGATIVE NEGATIVE [facility] LongviewUrine Rjjkz5341-56-10 01:54:00* Test Item Value Reference Range Interpretation Comments Urine Blood (test code = 79660-8) TRACE NEGATIVE [facility] Blood wP1956 01:51:00* Test Item Value Reference Range Interpretation Comments Arterial Blood pH (test code = 2744-1) 7.48 7.31-7.41 H [facility] LongviewArterial Blood Partial Pressure CO2 2019-04-18 01:51:00* Test Item Value Reference Range Interpretation Comments Arterial Blood Partial Pressure CO2 (test code = 2018-) 33 41-51 L [facility] LongviewArterial Blood Partial Pressure O2 2019-04-18 01:51:00* Test Item Value Reference Range Interpretation Comments Arterial Blood Partial Pressure O2 (test code = 2018-) 106 80-105 H [facility] Blood GPO84452-34-23 01:51:00* Test Item Value Reference Range Interpretation Comments Arterial Blood HCO3 (test code = 1960-4) 25 23-28 [facility]viewArterial Blood Base Nrxaxt5337-33-50 01:51:00* Test Item Value Reference Range Interpretation Comments Arterial Blood Base Excess (test code = 1925-7) 1.0 -2-3 [facility] LongviewArterial Blood Oxygen Saturation 2019-04-18 01:51:00* Test Item Value Reference Range Interpretation Comments Arterial Blood Oxygen Saturation (test code = 2708-6) 99.0 95-98 H [facility] LongviewFiO22019-11-09 01:51:00* Test Item Value Reference Range Interpretation Comments FiO2 (test code = FiO2) 100 [facility] Blood eV2244-38-46 01:51:00* Test Item Value Reference Range Interpretation Comments Arterial Blood pH (test code = 2744-1) 7.48 7.31-7.41 H [facility] LongviewArterial Blood Partial Pressure CO2 2019-04-18 01:51:00* Test Item Value Reference Range Interpretation Comments Arterial Blood Partial Pressure CO2 (test code = 2019-01) 33 41-51 L [facility] LongviewArterial Blood Partial Pressure O2 2019-04-18 01:51:00* Test Item Value Reference Range Interpretation Comments Arterial Blood Partial Pressure O2 (test code = 2019-01) 106 80-105 H [facility]viewArterpremier health [facility] Blood QBE31002-58-97 01:51:00* Test Item Value Reference Range Interpretation Comments Arterial Blood HCO3 (test code = 1960-4) 25 23-28 [facility] LongviewArterial Blood Base Obnkmo4935-03-06 01:51:00* Test Item Value Reference Range Interpretation Comments Arterial Blood Base Excess (test code = 1925-7) 1.0 -2-3 [facility] LongviewArterial Blood Oxygen Saturation 2019-04-18 01:51:00* Test Item Value Reference Range Interpretation Comments Arterial Blood Oxygen Saturation (test code = 2708-6) 99.0 95-98 H [facility] LongviewFiO22019-11-09 01:51:00* Test Item Value Reference Range Interpretation Comments FiO2 (test code = FiO2) 100 [facility] LongviewCHES SINGLE (PORTABLE)2019-04-18 01:45:00 [place] [address] Patient Name: PAOLA STILES MR #: [id number] : 1955 Age/Sex: 64/F Req #: [id number] Adm Physician: Ordered by: YOEL TORRES MD Report #: [id number] Location: ER Room/Bed: Procedure: [id number] DX/ EST SINGLE (PORTABLE) Exam Date: 04/18/19 Exam Time: 0120 REPORT STATUS: Signed EXAM INATION: CHEST SINGLE (PORTABLE) INDICATION: Altered mental status. COMPARISON: None FINDINGS: TUBES and LINES: None. LUNGS: Lungs are moderately inflated. There is no evidence of pneumonia or pulmonary edema. PLEURA: No pleural effusion or pneumothorax. HEART AND MEDIA STINUM: The cardiomediastinal silhouette is unremarkable. BONES AND SO FT TISSUES: No acute osseous abnormality. Partially seen cervical spine fixat ion hardware. UPPER ABDOMEN: No free air under the diaphragm. IMPR ESSION: No acute radiographic abnormality. Signed by: Kimani Farias on 04/18/2019 1:46 AM Dictated By: MP STONE MD 5 Transcribed By: ELDER on 04/18/19145 COPY TO: YOEL TORRES MD Prothrombin Xptk5217-31-70 01:24:00* Test Item Value Reference Range Interpretation Comments Prothrombin Time (test code = 5902-2) 12.2 11.9-14.5 [facility] LongviewProthromb Time International Ratio 2019-04-18 01:24:00* Test Item Value Reference Range Interpretation Comments Prothromb Time International Ratio (test code = 6301-6) 0.86 Oral Anticoagulant Therapy INR Values:1. Low Intensity Therapy 1.5 - 2.02 . Moderate Intensity Therapy 2.0 - 3.03. High Intensity Therapy(1) 2.5 - 3. 54. High Intensity Therapy(2) 3.0 - 4.05. Panic Value INR > 5.0 [facility] LongviewActivated Partial Thromboplast Time 2019-04-18 01:24:00* Test Item Value Reference Range Interpretation Comments Activated Partial Thromboplast Time (test code = 78896-9) 29.1 23.8-35.5 [facility]viewMagnesium [id number] 01:23:00* Test Item Value Reference Range Interpretation Comments Magnesium Level (test code = 53627-8) 1.4 1.3-2.1 [facility] LongviewArterial blood pH [id number] 23:26:00* Test Item Value Reference Range Interpretation Comments Arterial Blood pH (test code = 2744-1) 7.48 7.31-7.41 [facility] LongviewpCO2 [id number] 23:26:00* Test Item Value Reference Range Interpretation Comments Arterial Blood Partial Pressure CO2 (test code = 2019-01) 33 41-51 [facility] LongviewpCO2 [id number] 23:26:00* Test Item Value Reference Range Interpretation Comments Arterial Blood Partial Pressure O2 (test code = 2019-01) 106 80-105 [facility] LongviewArterial blood bicarbonate measurement (moles/volume)2019-04-17 23:26:00* Test Item Value Reference Range Interpretation Comments Arterial Blood HCO3 (test code = 1960-4) 25 23-28 [facility] LongviewArterial blood base excess by calculation 2019-04-17 23:26:00* Test Item Value Reference Range Interpretation Comments Arterial Blood Base Excess (test code = 1925-7) 1.0 -2-3 [facility] LongviewArterial blood oxygen saturation [id number] 23:26:00* Test Item Value Reference Range Interpretation Comments Arterial Blood Oxygen Saturation (test code = 2708-6) 99.0 95-98 [facility] LongviewFluoroscopic procedure less than one hour riyztnwr1464-64-02 23:26:00* Test Item Value Reference Range Interpretation Comments FiO2 (test code = FiO2) 100 [facility] LongviewBNP [id number]-[id number] 22:50:00* Test Item Value Reference Range Interpretation Comments B-Type Natriuretic Peptide (test code = 40517-4) 43.9 0-100 [facility] LongviewBlood [id number] 22:50:00* Test Item Value Reference Range Interpretation Comments Blood Culture (test code = 43387246) NO GROWTH AFTER 5 DAYS, FINAL REPORT [facility] LongviewBedside Pwqoyem2017-49-55 05:38:00* Test Item Value Reference Range Interpretation Comments Bedside Glucose (test code = 33070-5) 130 70-120 H Meter ID: [id number] [facility] Tomballodium Level 2018-06-07 22:59:00* Test Item Value Reference Range Interpretation Comments Sodium Level (test code = 2951-2) 134 136-145 L [facility] LongviewPotassium [id number] 22:59:00* Test Item Value Reference Range Interpretation Comments Potassium Level (test code = 2823-3) 4.3 3.5-5.1 [facility] LongviewChloride [id number] 22:59:00* Test Item Value Reference Range Interpretation Comments Chloride Level (test code = 2075-0) 97 98-107 L [facility] LongviewCarbon Dioxide [id number] 22:59:00* Test Item Value Reference Range Interpretation Comments Carbon Dioxide Level (test code = 2028-9) 23 - [facility] LongviewAnion [id number] 22:59:00* Test Item Value Reference Range Interpretation Comments Anion Gap (test code = 54217-8) 18.3 8-16 H [facility] LongviewBlood Urea [id number] 22:59:00* Test Item Value Reference Range Interpretation Comments Blood Urea Nitrogen (test code = 3094-0) 20 7-26 [facility] LongviewCreatinine2018-12-29 22:59:00* Test Item Value Reference Range Interpretation Comments Creatinine (test code = 2160-0) 1.49 0.57-1.11 H [facility]viewBUN/Creatinine [id number] 22:59:00* Test Item Value Reference Range Interpretation Comments BUN/Creatinine Ratio (test code = 3097-3) 13 6-25 [facility] LongviewEstimat Glomerular Filtration Rate 2018-06-07 22:59:00* Test Item Value Reference Range Interpretation Comments Estimat Glomerular Filtration Rate (test code = 668660970) 35 >60 L Ranges were taken from the National Kidney Disease Education Program and the [facility] literature.Reference ranges:60 or greater: Kgdsyp86-10 ( for 3 consecutive months): Chronic kidney disease 15 or less: Kidney failureCHRISTUS Good Shepherd [facility] Center – LongviewGlucose [id number] 22:59:00* Test Item Value Reference Range Interpretation Comments Glucose Level (test code = IEU4594) 818 74118 Results called to [rashid lucero rn/er] at 2258 on 06/07/18 by Carmen ELIZABETH.[facility] LongviewCalcium [id number] 22:59:00* Test Item Value Reference Range Interpretation Comments Calcium Level (test code = 35482-4) 9.5 8.4-10.2 [facility] LongviewTotal Beahzmlmb1120-04-75 22:59:00* Test Item Value Reference Range Interpretation Comments Total Bilirubin (test code = 1975-2) 0.6 0.2-1.2 [facility] LongviewAspartate Amino Transf (AST/SGOT) 2018-06-07 22:59:00* Test Item Value Reference Range Interpretation Comments Aspartate Amino Transf (AST/SGOT) (test code = Aspartate Amino Transf (AST/SGOT)) 12 5-34 [facility] LongviewAlanine Aminotransferase (ALT/SGPT) 2018-06-07 22:59:00* Test Item Value Reference Range Interpretation Comments Alanine Aminotransferase (ALT/SGPT) (test code = 1742-6) 22 0-55 [facility] Yygyoio5598-26-32 22:59:00* Test Item Value Reference Range Interpretation Comments Total Protein (test code = 2885-2) 7.6 6.5-8.1 [facility] LongviewAlbumin2018-12-29 22:59:00* Test Item Value Reference Range Interpretation Comments Albumin (test code = 1751-7) 4.0 3.5-5.0 [facility] LongviewGlobulin2018-12-29 22:59:00* Test Item Value Reference Range Interpretation Comments Globulin (test code = 08402-0) 3.6 2.3-3.5 H [facility] LongviewAlbumin/Globulin [id number] 22:59:00 * Test Item Value Reference Range Interpretation Comments Albumin/Globulin Ratio (test code = 1759-0) 1.1 0.8-2.0 [facility] LongviewAlkaline Wbtdzpowmkc5984-05-87 22:59:00* Test Item Value Reference Range Interpretation Comments Alkaline Phosphatase (test code = 6768-6) 145 40-150 [facility] LongviewWhite Blood [id number] 22:42:00* Test Item Value Reference Range Interpretation Comments White Blood Count (test code = 6690-2) 4.11 4.8-10.8 L [facility] LongviewRed Blood [id number] 22:42:00* Test Item Value Reference Range Interpretation Comments Red Blood Count (test code = 789-8) 4.46 3.6-5.1 [facility] LongviewHemoglobin2018-12-29 22:42:00* Test Item Value Reference Range Interpretation Comments Hemoglobin (test code = 24697-8) 12.8 12.0-16.0 [facility] LongviewHematocrit2018-12-29 22:42:00* Test Item Value Reference Range Interpretation Comments Hematocrit (test code = 4544-3) 39.1 34.2-44.1 [facility] LongviewMean Corpuscular [id number] 22:42:00* Test Item Value Reference Range Interpretation Comments Mean Corpuscular Volume (test code = 787-2) 87.7 81-99 [facility] LongviewMean Corpuscular Gnsqishsfr6720-52-09 22:42:00* Test Item Value Reference Range Interpretation Comments Mean Corpuscular Hemoglobin (test code = 785-6) 28.7 28-32 [facility] LongviewMean Corpuscular Hemoglobin Concent 2018-06-07 22:42:00* Test Item Value Reference Range Interpretation Comments Mean Corpuscular Hemoglobin Concent (test code = 786-4) 32.7 31-35 [facility] LongviewRed Cell Distribution [id number] 22:42:00* Test Item Value Reference Range Interpretation Comments Red Cell Distribution Width (test code = 51430-3) 13.6 11.7 -14.4 [facility] LongviewPlatelet [id number] 22:42:00* Test Item Value Reference Range Interpretation Comments Platelet Count (test code = 777-3) 198 140-360 [facility] LongviewNeutrophils (%) (Auto)2018-06-07 22:42:00 * Test Item Value Reference Range Interpretation Comments Neutrophils (%) (Auto) (test code = 21923-2) 55.5 38.7-80.0 [facility] LongviewLymphocytes (%) (Auto)2018-06-07 22:42:00 * Test Item Value Reference Range Interpretation Comments Lymphocytes (%) (Auto) (test code = 736-9) 34.8 18.0-39.1 [facility] LongviewMonocytes (%) (Auto)2018-06-07 22:42:00* Test Item Value Reference Range Interpretation Comments Monocytes (%) (Auto) (test code = 5905-5) 5.8 4.4-11.3 [facility]viewEosinophils (%) (Auto)2018-06-07 22:42:00 * Test Item Value Reference Range Interpretation Comments Eosinophils (%) (Auto) (test code = 713-8) 2.7 0.0-6.0 [facility] LongviewBasophils (%) (Auto)2018-06-07 22:42:00* Test Item Value Reference Range Interpretation Comments Basophils (%) (Auto) (test code = 706-2) 0.7 0.0-1.0 [facility] LongviewIM GRANULOCYTES %2018-06-07 22:42:00* Test Item Value Reference Range Interpretation Comments IM GRANULOCYTES % (test code = IM GRANULOCYTES %) 0.5 0.0- 1.0 [facility] LongviewNeutrophils # (Auto)2018-06-07 22:42:00* Test Item Value Reference Range Interpretation Comments Neutrophils # (Auto) (test code = 751-8) 2.3 2.1-6.9 [facility] LongviewLymphocytes # (Auto)2018-06-07 22:42:00* Test Item Value Reference Range Interpretation Comments Lymphocytes # (Auto) (test code = 39218-9) 1.4 1.0-3.2 [facility]viewMonocytes # (Auto)2018-06-07 22:42:00* Test Item Value Reference Range Interpretation Comments Monocytes # (Auto) (test code = 742-7) 0.2 0.2-0.8 [facility]viewEosinophils # (Auto)2018-06-07 22:42:00* Test Item Value Reference Range Interpretation Comments Eosinophils # (Auto) (test code = 711-2) 0.1 0.0-0.4 [facility]viewBasophils # (Auto)2018-06-07 22:42:00* Test Item Value Reference Range Interpretation Comments Basophils # (Auto) (test code = 704-7) 0.0 0.0-0.1 [facility] LongviewAbsolute Immature Granulocyte (auto 2018-06-07 22:42:00* Test Item Value Reference Range Interpretation Comments Absolute Immature Granulocyte (auto (yonis t code = Absolute Immature Granulocyte (auto) 0.02 0-0.1 [facility]
== END 2020-01-05 19:35 | disposition home or self-care (01) ==
LOC: ER 19:00
DX: M54.31 Sciatica, right side (principal); M25.551 Pain in right hip; I10 Essential (primary) hypertension; E11.40 Type 2 diabetes mellitus with diabetic neuropathy, unspecified; E78.5 Hyperlipidemia, unspecified
CPT/HCPCS: 99283

== ENCOUNTER 2020-01-26 20:45 | Emergency (ER) | payer OTHER ==
[~2020-01-26] VITALS: Ht 157.5 cm; Wt 78.5 kg
[2020-01-26] MEDS ORDERED: MORPHINE SULFATE INJ 4 MG/ML INJ 1ML IV STA (21:10)
[2020-01-26] MEDS ORDERED: ONDANSETRON HCL INJ 2MG/ML 2ML 2 MG/ML VIAL IV STA (21:10)
[2020-01-26 21:17] LABS: BASOPHILS % 0.5 % (0.0-1.0); EOSINOPHILS # (AUTO) 0.1 (0.0-0.4); EOSINOPHILS % 1.6 % (0.0-6.0); HEMATOCRIT 42.8 % (34.2-44.1); HEMOGLOBIN 14.5 g/dL (12.0-16.0); LYMPHOCYTES # (AUTO) 1.1 (1.0-3.2); LYMPHOCYTES % 24.5 % (18.0-39.1); MEAN CORPUSCULAR HEMOGLOBIN 28.6 pg (28-32); MEAN CORPUSCULAR HGB CONC 33.9 g/dL (31-35); MEAN CORPUSCULAR VOLUME 84.4 fL (81-99); MONOCYTES # (AUTO) 0.5 (0.2-0.8); MONOCYTES % 10.6 % (4.4-11.3); NEUTROPHILS # (AUTO) 2.7 (2.1-6.9); NEUTROPHILS % 61.9 % (38.7-80.0); PLATELET COUNT 192 x10e3/uL (140-360); RED BLOOD COUNT 5.07 x10e6/uL (3.6-5.1); RED CELL DISTRIBUTION WIDTH 13.1 % (11.7-14.4)
[2020-01-26 21:34] LABS: ALBUMIN 3.7 g/dL (3.5-5.0); ALBUMIN/GLOBULIN RATIO 1.1 (0.8-2.0); ANION GAP 19.4 mmol/L (8-16); CALCIUM 9.2 mg/dL (8.4-10.2); CREATININE, SERUM 1.07 mg/dL (0.57-1.11); POTASSIUM 3.4 mmol/L (3.5-5.1)
--- NOTE | 2020-01-26 21:39 | Emergency Department Note ---
History of Present Illnes History of Present Illness Chief Complaint: Flank Pain History of Present Illness This is a 64 year old female PRESENTS WITH LEFT SIDE PAIN FOR 3 DAYS THAT GOES FROM LEFT LATERAL CHEST TO LEFT MID ABDOMEN. PAIN IS WORSE WITH MOVEMENT. ALSO REPORTS HURTS TO BREATH, . Historian: Patient Arrival Mode: Car Onset (how long ago): day(s) (3) Location: LEFT SIDE Quality: PAIN Severity: moderate Duration (how long): day(s) (3) Progression: worsening Context: Denies recent illness, Denies recent surgery, Denies trauma/injury Relieving factors: none Exacerbating factors: movement Associated symptoms: Reports denies other symptoms Treatments prior to arrival: none Past Medical/Family History Physician Review I have reviewed the patient's past medical and family history. Any updates have been documented here. Past Medical History Recent Fever: No Clinical Suspicion of Infectio: No New/Unexplained Change in Ment: No Past Medical History: Hypertension, Diabetes, Hyperlipedemia Other Medical History: NEUROPATHY PHANTOM PAIN (LLE) Past Surgical History: Cholecysctectomy, Tubal Ligation, Cataract Removal Other Surgery: LEFT BKA CERVICAL SX Social History Smoking Cessation: Never Smoker Counseling Performed: No Alcohol Use: None Any Illegal Drug Use: No Physically hurt or threatened: No Other Last Tetanus: UTD Any Pre-Existing Lines (PICC,: No Review of Systems Review of Systems Constitutional: Reports no symptoms EENTM: Reports no symptoms Cardiovascular: Reports no symptoms Respiratory: Reports no symptoms Gastrointestinal: Reports no symptoms Genitourinary: Reports no symptoms Musculoskeletal: Reports as per HPI Integumentary: Reports no symptoms Neurological: Reports no symptoms Psychological: Reports no symptoms Endocrine: Reports no symptoms Hematological/Lymphatic: Reports no symptoms Physical Exam Related Data Allergies: Coded Allergies: sulfamethoxazole (Verified Allergy, Severe, 02/10/18) trimethoprim (Verified Allergy, Severe, 02/10/18) vancomycin (Verified Allergy, Severe, 02/10/18) Uncoded Allergies: PLASTIC (Allergy, Unknown, 08/22/19) Triage Vital Signs Vital Signs Date Time Temp Pulse Resp B/P (MAP) Pulse Ox O2 Delivery O2 Flow Rate FiO2 01/26/20 21:14 99.0 90 16 164/49 95 Room Air Vital signs reviewed: Yes Physical Exam CONSTITUTIONAL Constitutional: Present well-developed, Present well-nourished; Absent distressed HENT HENT: Present normocephalic, Present atraumatic, Present oropharynx clear/moist, Present nose normal HENT L/R: Present left ext ear normal, Present right ext ear normal EYES Eyes: Reports PERRL, Reports conjunctivae normal NECK Neck: Present ROM normal PULMONARY Pulmonary: Present effort normal, Present breath sounds normal, Present chest tenderness (LEFT LATERAL CHEST) CARDIOVASCULAR Cardiovascular: Present regular rhythm, Present heart sounds normal, Present capillary refill normal, Present normal rate GASTROINTESTINAL Abdominal: Present soft, Present bowel sounds normal, Present tender (LUQ ) GENITOURINARY Genitourinary: Present exam deferred SKIN Skin: Present warm, Present dry MUSCULOSKELETAL Musculoskeletal: Present ROM normal, Present other (LEFT BKA) NEUROLOGICAL Neurological: Present alert, Present oriented x 3, Present no gross motor or sensory deficits PSYCHOLOGICAL Psychological: Present mood/affect normal, Present judgement normal Results Laboratory Result Diagram: 01/26/20 2100 Laboratory Laboratory Tests Test 01/26/20 22:50 01/26/20 21:00 Urine Color Yellow (YELLOW) Urine Clarity Cloudy (CLEAR) Urine pH 5 (5 - 7) Urine Specific [place] 1.010 (1.010-1.025) Urine Protein Negative (NEGATIVE) Urine Glucose (UA) 2+ (NEGATIVE) Urine Ketones 1+ (NEGATIVE) Urine Blood Small (NEGATIVE) Urine Nitrite Negative (NEGATIVE) Urine Bilirubin Negative (NEGATIVE) Urine Urobilinogen 0.2 mg/dL (0.2 - 1) Urine Leukocyte Esterase Trace (NEGATIVE) Urine RBC 6-10 /HPF (0-5) Urine WBC 11-20 /HPF (0-5) Urine Epithelial Cells Moderate /LPF (NONE) Urine Bacteria Few /HPF (NONE) Urine Mucus Moderate (RARE) White Blood Count 4.33 x10e3/uL (4.8-10.8) Red Blood Count 5.07 x10e6/uL (3.6-5.1) Hemoglobin 14.5 g/dL (12.0-16.0) Hematocrit 42.8 % (34.2-44.1) Mean Corpuscular Volume 84.4 fL (81-99) Mean Corpuscular Hemoglobin 28.6 pg (28-32) Mean Corpuscular Hemoglobin Concent 33.9 g/dL (31-35) Red Cell Distribution Width 13.1 % (11.7-14.4) Platelet Count 192 x10e3/uL (140-360) Neutrophils (%) (Auto) 61.9 % (38.7-80.0) Lymphocytes (%) (Auto) 24.5 % (18.0-39.1) Monocytes (%) (Auto) 10.6 % (4.4-11.3) Eosinophils (%) (Auto) 1.6 % (0.0-6.0) Basophils (%) (Auto) 0.5 % (0.0-1.0) Neutrophils # (Auto) 2.7 (2.1-6.9) Lymphocytes # (Auto) 1.1 (1.0-3.2) Monocytes # (Auto) 0.5 (0.2-0.8) Eosinophils # (Auto) 0.1 (0.0-0.4) Basophils # (Auto) 0.0 (0.0-0.1) Absolute Immature Granulocyte (auto 0.04 x10e3/uL (0-0.1) Sodium Level 135 mmol/L (136-145) Potassium Level 3.4 mmol/L (3.5-5.1) Chloride Level 98 mmol/L (98-107) Carbon Dioxide Level 21 mmol/L (22-29) Anion Gap 19.4 mmol/L (8-16) Blood Urea Nitrogen 10 mg/dL (7-26) Creatinine 1.07 mg/dL (0.57-1.11) Estimat Glomerular Filtration Rate 52 ML/MIN (60-) BUN/Creatinine Ratio 9 (6-25) Glucose Level 734 mg/dL (74-118) Calcium Level 9.2 mg/dL (8.4-10.2) Total Bilirubin 0.5 mg/dL (0.2-1.2) Aspartate Amino Transf (AST/SGOT) 8 IU/L (5-34) Alanine Aminotransferase (ALT/SGPT) 8 IU/L (0-55) Alkaline Phosphatase 131 IU/L (40-150) Creatine Kinase 19 IU/L (29-168) Creatine Kinase MB 1.40 ng/mL (0-5.0) Troponin I 0.054 ng/mL (0-0.300) Total Protein 7.0 g/dL (6.5-8.1) Albumin 3.7 g/dL (3.5-5.0) Globulin 3.3 g/dL (2.3-3.5) Albumin/Globulin Ratio 1.1 (0.8-2.0) Laboratory Tests Test 01/26/20 21:00 White Blood Count 4.33 x10e3/uL (4.8-10.8) Red Blood Count 5.07 x10e6/uL (3.6-5.1) Hemoglobin 14.5 g/dL (12.0-16.0) Hematocrit 42.8 % (34.2-44.1) Mean Corpuscular Volume 84.4 fL (81-99) Mean Corpuscular Hemoglobin 28.6 pg (28-32) Mean Corpuscular Hemoglobin Concent 33.9 g/dL (31-35) Red Cell Distribution Width 13.1 % (11.7-14.4) Platelet Count 192 x10e3/uL (140-360) Neutrophils (%) (Auto) 61.9 % (38.7-80.0) Lymphocytes (%) (Auto) 24.5 % (18.0-39.1) Monocytes (%) (Auto) 10.6 % (4.4-11.3) Eosinophils (%) (Auto) 1.6 % (0.0-6.0) Basophils (%) (Auto) 0.5 % (0.0-1.0) Neutrophils # (Auto) 2.7 (2.1-6.9) Lymphocytes # (Auto) 1.1 (1.0-3.2) Monocytes # (Auto) 0.5 (0.2-0.8) Eosinophils # (Auto) 0.1 (0.0-0.4) Basophils # (Auto) 0.0 (0.0-0.1) Absolute Immature Granulocyte (auto 0.04 x10e3/uL (0-0.1) Lab results reviewed: Yes Imaging Imaging results reviewed: Yes Impressions Procedure: [id number] CT/CT ABDOMEN/PELVIS W Exam Date: 01/26/20 Exam Time: 2224 REPORT STATUS: Signed EXAM: CT Abdomen and Pelvis WITH contrast INDICATION: Left upper quadrant pain. COMPARISON: Abdominal CT August 23, 2019. TECHNIQUE: Abdomen and pelvis were scanned utilizing a multidetector helical scanner from the lung base to the pubic symphysis after administration of IV contrast. Coronal and sagittal reformations were obtained. Routine protocol was performed. Scan was performed when during portal venous phase. IV CONTRAST: 100 mL of Isovue 370 ORAL CONTRAST: None COMPLICATIONS: None RADIATION DOSE: Total DLP: 696 mGy*cm Estimated effective dose: (DLP x 0.015 x size factor) mSv CTDIvol has been reviewed. It is below the limits set by the Radiation Protocol Committee (RPC). Dose modulation, iterative reconstruction, and/or weight based adjustment of the mA/kV was utilized to reduce the radiation dose to as low as reasonably achievable. FINDINGS: LINES and TUBES: None. LOWER THORAX: Mitral annular and aortic valve calcifications. Coronary calcifications. HEPATOBILIARY: A subcapsular hypodensity in the posterior aspect of the right hepatic dome, was also seen on 08/23/2019, likely an area of focal fat. No focal hepatic lesions. No biliary ductal dilation. GALLBLADDER: There are cholecystectomy clips. SPLEEN: Small wedge-shaped hypodensity in the spleen. PANCREAS: Fatty atrophy. No mass or duct dilation. ADRENALS: No adrenal nodules KIDNEYS/URETERS: Kidneys enhance symmetrically. No hydronephrosis. No cystic or solid mass lesions. No stones. GI TRACT: No abnormal distention, wall thickening, or evidence of bowel obstruction. Appendix is normal. PELVIC ORGANS/BLADDER: Unremarkable. LYMPH NODES: No lymphadenopathy. 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 Vascular calcifications. PERITONEUM / RETROPERITONEUM: No free air or fluid. BONES: Unremarkable. SOFT TISSUES: Unremarkable. 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 Coronary artery calcific atherosclerosis. 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: Interpreted by ED physician Date: Jan 26, 2020 Time: 21:04 Rhythm: sinus rhythm Rate: normal BPM: 92 QRS axis: normal ST segments normal: No (NONSPECIFIC CHANGES) T waves normal: No (NONSPECIFIC CHANGES) Q waves: III, V1, V2, V3 Clinical Impression: abnormal ECG Assessment & Plan Medical Decision Making MDM PT WITH LEFT SIDE PAIN WORSE WITH MOVEMENT AND INSPIRATION, TENDER TO LEFT CHEST WALL AND LUQ CBC, CMP, EKG, CARDIAC ENZYMES, UA, CXR, CT ABD/PELVIS ORDERED TO EVAL FOR MYOCARDIAL INFARCTION, ELECTROLYTE ABNORMALITY, PNEUMONIA, PNEUMOTHORAX, SPLENOMEGALY, COLITIS, UTI, KIDNEY STONE MORPHINE 4 MG IV ORDERED ZOFRAN 4 MG IV ORDERED PT WITH FSBS OF 734 REGULAR INSULIN 10 UNITS SQ ORDERED REGULAR INSULIN 10 UNITS IV ORDERED NS 2 LITER IV BOLUS ORDERED Assessment & Plan Final Impression: (1) Uncontrolled diabetes mellitus (2) Hyperglycemia (3) Muscle strain Depart Disposition: HOME, SELF-CARE Last Vital Signs Date Time Temp Pulse Resp B/P (MAP) Pulse Ox O2 Delivery O2 Flow Rate FiO2 01/26/20 21:30 90 19 145/58 95 Room Air 01/26/20 21:14 99.0 Home Meds Active Scripts Cefuroxime Axetil (CEFUROXIME) 250 Mg Tablet, 500 MG PO Q12H for 10 Days, #20 TAB 0 Refills Prov:DANYA ORTEGA NP 08/25/19 Ascorbic Acid (ASCORBIC ACID) 500 Mg Tablet, 500 MG PO BID for 14 Days, #30 MG 0 Refills Prov:DANYA ORTEGA CUSTOMER SERVICES SUPERVISOR 08/25/19 Reported Medications Insulin Regular, Human (HUMULIN R) 100 Unit/1 Ml Vial, 60 SC HS 08/23/19 Insulin Regular, Human (HUMULIN R) 100 Unit/1 Ml Vial, 65 SC ACL 08/23/19 Insulin Regular, Human (HUMULIN R) 100 Unit/1 Ml Vial, 60 UNIT SC ACB 08/23/19 Tramadol Hcl* (ULTRAM 50MG*) 50 Mg Tab, 50 MG PO PRN, TAB 08/23/19 Pantoprazole Sodium* (PROTONIX) 40 Mg Tablet.dr, 40 MG PO DAILY, TAB 08/23/19 [U-500 (Humulin)] No Conflict Check, 50 UNITS SC TID 04/20/19 Sertraline Hcl (SERTRALINE HCL) 50 Mg Tablet, 50 MG PO DAILY, #30 TAB 04/18/19 Gabapentin (GABAPENTIN) 100 Mg Capsule, 100 MG PO TID 04/18/19 Furosemide (LASIX) 20 Mg Tablet, 20 MG PO DAILY, #30 TAB 04/18/19 Methocarbamol (METHOCARBAMOL) 750 Mg Tablet, 500 MG PO Q8H PRN for MUSCLE SPASMS, #30 TAB 04/18/19 Aspirin (ASPIR 81) 81 Mg Tablet.dr, 81 MG PO DAILY 04/18/19 Atorvastatin Calcium (LIPITOR) 40 Mg Tablet, 40 MG PO HS 04/18/19 Losartan Potassium (LOSARTAN POTASSIUM) 100 Mg Tablet, 50 MG PO DAILY, TAB 04/18/19 Acetaminophen With Codeine (TYLENOL WITH CODEINE #3 TABLET) 1 Each Tablet, 300 MG PO Q6H PRN for PAIN, TAB 02/10/18 Medications in the ED Morphine Sulfate 4 mg NOW STAT IV Last administered on 01/26/20at 21:35; Admin Dose 4 MG; Start 01/26/20 at 21:10; Stop 01/26/20 at 21:14; Status DC Ondansetron HCl 4 mg NOW STAT IV Last administered on 01/26/20at 21:35; Admin Dose 4 MG; Start 01/26/20 at 21:10; Stop 01/26/20 at 21:14; Status DC JUSTIN MARAVILLA MD Jan 26, 2020 21:39
[2020-01-26 21:41] LABS: CREATINE KINASE MB 1.4 ng/mL (0-5.0)
[2020-01-26] MEDS ORDERED: SODIUM CHLORIDE 0.9% 1000ML 1,000 ML IV ONE ×2 (21:45)
[2020-01-26] MEDS ORDERED: INSULIN REGULAR, HUMAN 100 UNIT/1 ML 3ML VIAL SQ ONE (21:45)
[2020-01-26] MEDS ORDERED: INSULIN REGULAR, HUMAN 100 UNIT/1 ML 3ML VIAL IV ONE (21:45)
[2020-01-26] MEDS ORDERED: SODIUM CHLORIDE 0.9% 1000ML 2,000 ML ONE (21:52)
--- OUTSIDE RECORDS SUMMARY | 2020-01-26 21:54 | XMS REPORT | Continuity of Care Document ---
Author Author GlomeraPAOL[employer] Address Unknown Phone Unavailable Care Team Providers Care Patient Care Technician Instructor Name Role Phone [employer] Unavailable Un available Problems Problem [...] Active 81 MG Orally [facility] not defined Subcutaneous Active 100 [...]
--- OUTSIDE RECORDS SUMMARY | 2020-01-26 21:55 | XMS REPORT | Continuity of Care Document ---
Author Author [facility] t Organization [facility] Address [facility]3 Brayan [address] [place] [address] Phone Unavailable Care Team Providers Care Environmental Adviser Name Role Phone MD Hernesto ALBERT MD [facility] PCP Balwidner MARAVILLA Attphys Unavailable Hernesto TORRES Attphys Unavailable Payers Payer Name Policy Type Policy Number Effective Date Expiration Date [facility] Choice Excha [id number] 2019 00:00:00 2019 00:00:00 [facility] Problems Condition Name Condition Details Condition Category Status Onset Date Resolution Date Last Treatment Date Treating Clinician Comments Source Dehydration Dehydration Problem Active [facility] Hyperglycemia Hyperglycemia Problem Active [facility] Renal insufficiency Renal insufficiency Problem Active [facility] Urinary tract infection UTI (urinary tract infection) Problem Active [facility] Pyelonephritis Pyelonephritis Problem Active [facility] Sciatica of right side Problem Active [facility] DM w/o complication type II, uncontrolled DM w/o complication type II, uncontrolled Active Diagnosis 09/30/2018 [facility] Diagnosis Active 2018-09-30 03:13:21 Mitchell Schmidt Shortness of breath Shor tness of breath Active Diagnosis 09/30/2018 [facility] Diagnosis Active 2018-09-30 03:13:21 Mitchell Schmidt Abnormal electrocardiogram Abn ormal electrocardiogram Active Diagnosis 09/30/2018 [facility] Diagnosis Active 2018-09-30 03:13:21 [facility] Brayan Wheel chair as ambulatory aid Wheel chair as ambulatory aid Active Problem 09/30/2018 Sergio Aguilarmed Problem Active 2018-09-30 03:13:21 Mitchell Schmidt Pure hypercholesterolemia Pure hypercholesterolemia Active Problem 09/30/2018 [facility] Problem Active 2018-09-30 03:13 :21 [facility] Brayan Precordial pain Prec ordial pain Active Diagnosis 09/30/2018 [facility] Diagnosis Active 2018-09-30 03:13:21 [facility] Brayan Atheroscler-limb&claudic Athe roscler-limb&claudic Active Problem 09/30/2018 Laurenmed Laurenmed Problem Active 2018-09-30 03:13 :21 Mitchell Schmidt S/P BKA (below knee amputation) unilateral S/P BKA (below knee amputation) unilateral Active Problem 09/30/2018 [facility] Problem Active 2018-09-30 03:13:21 Dane Schmidt Other symptoms involving cardiovascular system Other symptoms involving cardiovascular system Active Diagnosis 09/30/2018 [facility] Diagnosis Active 2018-09-30 03:13:21 [facility] Brayan Allergies, Adverse Reactions, Alerts Allergy Name Allergy Type Status Severity Reaction(s) Onset Date Inacti ve Date Treating Clinician Comments Source PLASTIC Allergy to substance Active 2019-08-22 00:00:00 [facility] Bactrim Bactrim Active Info Not Available 2018-04-24 00:00:00 [facility] Sulfamethoxazole Allergy to substance Active Severe 2018-02-10 00: 00:00 [facility] Trimethoprim Allergy to substance Active Severe 2018-02-10 00:00:0 0 [facility] Vancomycin Allergy to substance Active Severe 2018-02-10 00:00:00 [facility] sulfamethoxazole DA Active MO 2017-05-04 00:00:00 [facility] trimethoprim DA Active SV 2017-05-04 00:00:00 [facility] vancomycin DA Active SV 2017-05-04 00:00:00 [facility] Social History Social Habit Start Date Stop Date Quantity Comments Source Sex Assigned At 1955 00:00:00 1955 00:00:00 Female [facility] Medications Ordered Medication Name Filled Medication Name Start Date Stop Da te Current Medication? Ordering Clinician Indication Dosage Frequency Signature (SIG) Comments Components Source Ascorbic Acid Ascorbic Acid 2019-08-25 09:47:00 Yes 500 Twice A Day [facility] Cefuroxime Axetil (Cefuroxime) 250 Mg TABLET Cefuroxim e Axetil (Cefuroxime) 250 Mg TABLET 2019-08-25 09:47:00 Yes 500 Every 12 Hours [facility] Cefdinir (Omnicef) 300 Mg CAPSULE Cefdinir (Omnicef) 300 Mg CAPSULE 2019-04-20 06:13:00 2019-08-25 00:00:00 No 300 Twice A Day [facility] MetFORMIN HCl ER 2018-09-30 03:13:21 Yes Ahmed Ahmed 1 tablet with evening meal [facility] Victoza 2018-09-30 03:13:21 Yes Ahmed Ahmed not d efined [facility] Sertraline HCl 2018-09-30 03:13:21 Yes Ahmed Ahmed 1 tablet [facility] Aspir-81 2018-09-30 03:13:21 Yes Ahmed Ahmed 1 ta blet [facility] NovoLog 2018-09-30 03:13:21 Yes Ahmed Ahmed not d efined [facility] Losartan Potassium 2018-09-30 03:13:21 Yes Ahmed Ahmed 1 tablet [facility] BuPROPion HCl (XL) 2018-09-30 03:13:21 Yes Ahmed Ahmed 1 tablet in the morning [facility] Methocarbamol 2018-09-30 03:13:21 Yes Ahmed Ahmed 1.5 tablets [facility] Gabapentin 2018-09-30 03:13:21 Yes Ahmed Ahmed 1 capsule [facility] Furosemide 2018-09-30 03:13:21 Yes Ahmed Ahmed 1 tablet [facility] Humulin R U-500 (Concentrated) 2018-09-30 03:13:21 Yes A hmed Ahmed not defined [facility] Atorvastatin Calcium 2018-09-30 03:13:21 Yes Ahmed Ahmed 1 tablet [facility] Acetaminophen With Codeine (Tylenol With Codeine #3 Ta blet) 1 Each TABLET Acetaminophen With Codeine (Tylenol With Codeine #3 Tablet) 1 Each TABLET Yes 300 Every 6 Hours as needed for Pain [facility] Aspirin (Aspir 81) 81 Mg TABLET. Aspirin (Aspir 81) 81 Mg TABLET. Yes 81 Daily [facility] Atorvastatin Calcium (Lipitor) 40 Mg TABLET Atorvastat in Calcium (Lipitor) 40 Mg TABLET Yes 40 Bedtime [facility] Furosemide (Lasix) 20 Mg TABLET Furosemide (Lasix) 20 Mg TABLET Yes 20 Daily [facility] Gabapentin Gabapentin Yes 100 Three Times A Day [facility] Insulin Regular, Human (Humulin R) 100 Unit/1 Ml VIAL Insulin Regular, Human (Humulin R) 100 Unit/1 Ml VIAL Yes 60 Before Breakfast [facility] Insulin Regular, Human (Humulin R) 100 Unit/1 Ml VIAL Insulin Regular, Human (Humulin R) 100 Unit/1 Ml VIAL Yes 65 Before Lunch [facility] Insulin Regular, Human (Humulin R) 100 Unit/1 Ml VIAL Insulin Regular, Human (Humulin R) 100 Unit/1 Ml VIAL Yes 60 Bedtime [facility] Losartan Potassium Losartan Potassium Yes 50 Da chris [facility] Methocarbamol Methocarbamol Yes 500 Every 8 Hours as needed for Muscle Spasms [facility] Pantoprazole Sodium (Protonix) 40 Mg TABLET. Pantopr azole Sodium (Protonix) 40 Mg TABLET. Yes 40 Daily [facility] Sertraline Hcl Sertraline Hcl Yes 50 Daily [facility] Tramadol Hcl (Ultram 50MG*) 50 Mg TAB Tramadol Hcl (Ultram 50MG*) 5 0 Mg TAB Yes 50 As Needed [facility] U-500 (Humulin) U-500 (Humulin) Yes 50 Three Ti mes A Day [facility] Omeprazole Omeprazole 2019-08-23 00:00:00 No 40 Keshia ly [facility] Metformin Hcl Metformin Hcl 2019-04-20 00:00:00 No 1000 Twice Daily With Meals [facility] Cyclobenzaprine Hcl (Flexeril) 5 Mg TABLET Cyclobenzap rine Hcl (Flexeril) 5 Mg TABLET 2019-04-18 00:00:00 No 10 Ever y 8 Hours as needed for Muscle Spasms [facility] Ondansetron Hcl (Zofran*) 4 Mg TABLET Ondansetron Hcl (Zofran*) 4 Mg TABLET 2018-06-07 00:00:00 No 4 Every 6 Hours as nee ded for Nausea [facility] Vital Signs Vital Name Observation Time Observation Value Comments Source Weight 2020-01-05 18:55:00 173 [lb_av] [facility] BMI (Body Mass Index) 2020-01-05 18:55:00 31.6 kg/m2 [facility] Body Temperature 2019-08-25 16:00:00 97.8 [degF] [facility] Weight 2018-04-24 20:15:00 [facility] Heart Rate 2018-04-24 20:15:00 [facility] Diastolic (mm Hg) 2018-04-24 20:15:00 [facility] Systolic (mm Hg) 2018-04-24 20:15:00 Blaise Schmidt Procedures Procedure Date / Time Performed Performing Clinician Santiago thakkar CT of abdomen and pelvis without contrast 2019-08-22 00:00:00 [facility] Computed tomography of brain without radiopaque contrast 201 02-19-08 00:00:00 YOEL TORRES [facility] Plan of Care Planned Activity Planned Date Details Comments Source Instructions Sciatica [facility] Encounters Start Date/Time End Date/Time Encounter Type Admission Type Attendi [facility] Facility Care Department Encounter ID Source 2020-01-05 19:00:00 2020-01-05 19:35:00 Departed Emergency Room [facility] [id number] [facility] dical [place] 2019-08-23 03:58:00 2019-08-25 18:24:00 Discharged Inpatient (obs) 1 JUSTIN MARAVILLA [facility] [id number] I [facility] 2019-04-18 02:51:00 2019-04-20 14:40:00 Discharged Inpatient 1 [facility] [id number] [facility] 2018-06-07 22:27:00 2018-06-08 05:51:[address] [facility] [id number] [facility] 2018-04-24 15:15:00 2018-04-24 15:15:00 [facility] [id number] [employer] 2018-02-10 20:45:00 2018-02-10 22:37:[address] [facility] [id number] [facility] Results Test Description Test Time Test Comments Results Result Comments Source GLUBED 2019-10-26 23:02:00 Test Item GLUBED (test code = GLUBED) 105 MG/DL 70-110 N Performed by certified block bolter mule operator at [facility] - CT ABD PELVIS W/[id number] 21:47:00 Name: PAOLA STILES [facility] : 1955 Age/S: 64 / F [address] [place] [address] Blvd Unit #: [id number] Loc: [place] [address] Phys: Heena Winter WOOL DYER Acct: [id number] Dis Date: Status: REG ER PHONE #: [phone] Exam Date: 10/26/20192101 FAX #: [phone] Reason: diffuse abd pain, vomiting EXAMS: CPT CODE: [id number] CT ABD PELVIS W/CONT 72814 CT abdomen and pelvis with contrast dated [...] 1 Signed Report (CONTINUED) Name: PAOLA STILES [facility] : 1955 Age/S: 64 / F [address] [place] [address] Unit #: [id number] Loc: [place] [address] Phys: MaggyAlvarezale WOOL DYER Acct: [id number] Dis Date: Status: REG ER PHONE #: [phone] Exam Date: 10/26/20192101 FAX #: [phone] Reason: diffuse abd pain, vomiting EXAMS: CPT CODE: [id number] CT ABD PELVIS W/CONT 30591 < Continued> RETROPERITONEUM: The abdominal aorta demonstrates [...] favoring a benign etiology. SL: 131 at 7 Reported and signed by: Paulo Parekh M.D. CC: Heena Winter NP Technologist:RT Melodie(R) CTDI: DLP: Trnscb Date/Time: 10/26/2019 (2146) t.[email or web address] Orig Print D/T: S: 10/26/2019 (2149) PAGE 2 Signed Report BASIC METABOLIC [id number] 20:42:00* Test Item Value Reference Range Interpretation [...] CA) 9.3 mg/dL 8.0-10.5 N HEPATIC FUNCTION [id number] 20:42:00* Test Item Value Reference Range Interpretation [...] code = ALKP) 104 IUnit/L 20-125 N [id number] 20:42:00* Test Item Value Reference Range Interpretation Comments LIPASE (test code = LIP) 59 IUnit/L 73-393 L [id number] 20:42:00* Test Item Value Reference Range Interpretation Comments TROPONIN-I (test code = TROPI) < 0.015 ng/mL 0.000-0.045 N Negative: <= 0.045 Positive: >= 0.046 Correlation with serial results, other cardiac markers andclinical findings is necessary to determine the clinicalsignificance of this result. Results using different methodologies should not be comparedto one another as quantitative results may vary by method. - XR CHEST 1 [id number] 20:37:00 FAX: Heena Winter NP [phone] [place]: St: PRE Name: VENUS ESQUIVELBIE CIRILO [facility] : [birth year] Age/S: 64/F [address] [place] [address] Unit #: [id number] Loc: [place] [address] Phys: Heena Winter NP Acct: [id number] Dis Date: Status: PRE ER PHONE #: [phone] Exam Date: 10/26/20192023 FAX #: [phone] Reason: cough EXAMS: CPT CODE: [id number] XR CHEST 1 V 05792 Chest, single view dated 10/26/2019 . HISTORY: [...] CC: Heena Winter NP Technologist: RT Pavan(R) Trnjyotird Date/Time/By: 0 (2036) : By: Norma Orig Print D/T: S: 10/26/2019 (2039) PAGE 1 Signed Report URINALYSIS [id number] 20:33:00* Test Item Value Reference Range Interpretation [...] MUCU) TRACE /LPF NONE SEEN CBC W/AUTO [id number] 20:23:00* Test Item Value Reference Range Interpretation [...] Interpretation Comments Bedside Glucose (test code = 45251-0) 89 70-120 Meter ID: [id number] [facility] 2019-08-25 11:57:00* Test Item Value Reference Range Interpretation Comments Bedside Glucose (test code = 74408-2) 321 70-120 H Meter ID: [id number] [facility] Children[facility] Culture 2019-08-25 08:09:00* Test Item Value Reference Range Interpretation Comments Urine Culture (test code = 630-4) No Result Data Provided [facility] [id number] 05:40:00* Test Item Value Reference Range Interpretation Comments Sodium Level (test code = 2951-2) 139 136-145 [facility]Potassium [id number] 05:40:00* Test Item Value Reference Range Interpretation Comments Potassium Level (test code = 2823-3) 3.9 3.5-5.1 [facility] CenterChloride [id number] 05:40:00* Test Item Value Reference Range Interpretation Comments Chloride Level (test code = 2075-0) 108 98-107 H [facility] CenterCarbon Dioxide [id number] 05:40:00* Test Item Value Reference Range Interpretation Comments Carbon Dioxide Level (test code = 2028-9) 28 22-29 [facility] CenterAnion [id number] 05:40:00* Test Item Value Reference Range Interpretation Comments Anion Gap (test code = 39957-7) 6.9 8-16 L [facility] CenterBlood Urea [id number] 05:40:00* Test Item Value Reference Range Interpretation Comments Blood Urea Nitrogen (test code = 3094-0) 14 7-26 [facility] CenterCreatinine2020-03-17 05:40:00* Test Item Value Reference Range Interpretation Comments Creatinine (test code = 2160-0) 0.77 0.57-1.11 [facility] CenterBUN/Creatinine [id number] 05:40:00* Test Item Value Reference Range Interpretation Comments BUN/Creatinine Ratio (test code = 3097-3) 18 6-25 [facility] CenterEstimat Glomerular Filtration Rate 2019-08-25 05:40:00* Test Item Value Reference Range Interpretation Comments Estimat Glomerular Filtration Rate (test code = 390794661) > 60 >60 Ranges were taken from the National Kidney Disease Education Program and the [facility] Kidney Foundation literature.Reference ranges:60 or greater: Nmlmve70-46 ( for 3 consecutive months): Chronic kidney disease 15 or less: Kidney failureBig [facility] Medical CenterGlucose [id number] 05:40:00* Test Item Value Reference Range Interpretation Comments Glucose Level (test code = LHH7701) 245 74-118 H [facility] CenterCalcium [id number] 05:40:00* Test Item Value Reference Range Interpretation Comments Calcium Level (test code = 47771-6) 8.7 8.4-10.2 [facility] CenterMagnesium [id number] 05:40:00* Test Item Value Reference Range Interpretation Comments Magnesium Level (test code = 90362-2) 1.7 1.3-2.1 [facility] CenterWhite Blood [id number] 05:29:00* Test Item Value Reference Range Interpretation Comments White Blood Count (test code = 6690-2) 4.87 4.8-10.8 [facility] CenterRed Blood [id number] 05:29:00* Test Item Value Reference Range Interpretation Comments Red Blood Count (test code = 789-8) 4.37 3.6-5.1 [facility] CenterHemoglobin2020-03-17 05:29:00* Test Item Value Reference Range Interpretation Comments Hemoglobin (test code = 40087-5) 12.6 12.0-16.0 [facility] CenterHematocrit2020-03-17 05:29:00* Test Item Value Reference Range Interpretation Comments Hematocrit (test code = 4544-3) 38.9 34.2-44.1 [facility] CenterMean Corpuscular Siurjt2836-72-87 05:29:00* Test Item Value Reference Range Interpretation Comments Mean Corpuscular Volume (test code = 787-2) 89.0 81-99 [facility] CenterMean Corpuscular Peabtpahtq4596-79-78 05:29:00* Test Item Value Reference Range Interpretation Comments Mean Corpuscular Hemoglobin (test code = 785-6) 28.8 28-32 [facility] CenterMean Corpuscular Hemoglobin Concent 2019-08-25 05:29:00* Test Item Value Reference Range Interpretation Comments Mean Corpuscular Hemoglobin Concent (test code = 786-4) 32.4 31-35 [facility] CenterRed Cell Distribution [id number] 05:29:00* Test Item Value Reference Range Interpretation Comments Red Cell Distribution Width (test code = 69908-7) 12.4 11.7 -14.4 [facility] CenterPlatelet [id number] 05:29:00* Test Item Value Reference Range Interpretation Comments Platelet Count (test code = 777-3) 171 140-360 [facility] CenterNeutrophils (%) (Auto)2019-08-25 05:29:00 * Test Item Value Reference Range Interpretation Comments Neutrophils (%) (Auto) (test code = 17070-5) 53.3 38.7-80.0 [facility] CenterLymphocytes (%) (Auto)2019-08-25 05:29:00 * Test Item Value Reference Range Interpretation Comments Lymphocytes (%) (Auto) (test code = 736-9) 38.8 18.0-39.1 [facility] CenterMonocytes (%) (Auto)2019-08-25 05:29:00* Test Item Value Reference Range Interpretation Comments Monocytes (%) (Auto) (test code = 5905-5) 5.3 4.4-11.3 [facility] CenterEosinophils (%) (Auto)2019-08-25 05:29:00 * Test Item Value Reference Range Interpretation Comments Eosinophils (%) (Auto) (test code = 713-8) 1.8 0.0-6.0 [facility] CenterBasophils (%) (Auto)2019-08-25 05:29:00* Test Item Value Reference Range Interpretation Comments Basophils (%) (Auto) (test code = 706-2) 0.2 0.0-1.0 [facility] CenterIM GRANULOCYTES %2019-08-25 05:29:00* Test Item Value Reference Range Interpretation Comments IM GRANULOCYTES % (test code = IM GRANULOCYTES %) 0.6 0.0- 1.0 [facility] CenterNeutrophils # (Auto)2019-08-25 05:29:00* Test Item Value Reference Range Interpretation Comments Neutrophils # (Auto) (test code = 751-8) 2.6 2.1-6.9 [facility] CenterLymphocytes # (Auto)2019-08-25 05:29:00* Test Item Value Reference Range Interpretation Comments Lymphocytes # (Auto) (test code = 58676-6) 1.9 1.0-3.2 [facility] CenterMonocytes # (Auto)2019-08-25 05:29:00* Test Item Value Reference Range Interpretation Comments Monocytes # (Auto) (test code = 742-7) 0.3 0.2-0.8 [facility] CenterEosinophils # (Auto)2019-08-25 05:29:00* Test Item Value Reference Range Interpretation Comments Eosinophils # (Auto) (test code = 711-2) 0.1 0.0-0.4 [facility] CenterBasophils # (Auto)2019-08-25 05:29:00* Test Item Value Reference Range Interpretation Comments Basophils # (Auto) (test code = 704-7) 0.0 0.0-0.1 [facility] CenterAbsolute Immature Granulocyte (auto 2019-08-25 05:29:00* Test Item Value Reference Range Interpretation Comments Absolute Immature Granulocyte (auto (yonis t code = Absolute Immature Granulocyte (auto) 0.03 0-0.1 [facility]Bl[facility] leukocytes automated count (number/volume)2019-08-25 04:55:00* Test Item Value Reference Range Interpretation Comments White Blood Count (test code = 6690-2) 4.87 4.8-10.8 [facility] CenterBltr[facility] center erythrocytes automated count (number/volume)2019-08-25 04:55:00* Test Item Value Reference Range Interpretation Comments Red Blood Count (test code = 789-8) 4.37 3.6-5.1 [facility] CenterBlood hemoglobin measurement (moles/volume)2019-08-25 04:55:00* Test Item Value Reference Range Interpretation Comments Hemoglobin (test code = 31583-8) 12.6 12.0-16.0 [facility] CenterAutomated blood hematocrit (volume fraction)2019-08-25 04:55:00* Test Item Value Reference Range Interpretation Comments Hematocrit (test code = 4544-3) 38.9 34.2-44.1 [facility] CenterAutomated erythrocyte mean corpuscular [id number] 04:55:00* Test Item Value Reference Range Interpretation Comments Mean Corpuscular Volume (test code = 787-2) 89.0 81-99 [facility] CenterAutomated erythrocyte mean corpuscular hemoglobin (mass per erythrocyte)2019-08-25 04:55:00* Test Item Value Reference Range Interpretation Comments Mean Corpuscular Hemoglobin (test code = 785-6) 28.8 28-32 [facility] CenterAutomated erythrocyte mean corpuscular hemoglobin concentration measurement (mass/volume)2019-08-25 04:55:00* Test Item Value Reference Range Interpretation Comments Mean Corpuscular Hemoglobin Concent (test code = 786-4) 32.4 31-35 [facility] CenterRDW PbhXt-[id number] 04:55:00* Test Item Value Reference Range Interpretation Comments Red Cell Distribution Width (test code = 38472-5) 12.4 11.7 -14.4 [facility] CenterAutomated blood platelet count (count/volume)2019-08-25 04:55:00* Test Item Value Reference Range Interpretation Comments Platelet Count (test code = 777-3) 171 140-360 [facility] CenterAutomated blood segmented neutrophil count as percentage of total bihbdqyjyg6348-02-32 04:55:00* Test Item Value Reference Range Interpretation Comments Neutrophils (%) (Auto) (test code = 93971-0) 53.3 38.7-80.0 [facility] blood lymphocyte count as percentage ot total xiwpkwhwry5193-76-96 04:55:00* Test Item Value Reference Range Interpretation Comments Lymphocytes (%) (Auto) (test code = 736-9) 38.8 18.0-39.1 [facility] CenterAutomated blood monocyte count as percentage of total cmoqvwsyqe9876-24-95 04:55:00* Test Item Value Reference Range Interpretation Comments Monocytes (%) (Auto) (test code = 5905-5) 5.3 4.4-11.3 [facility] count as percentage of total ytdyikgjat9704-95-45 04:55:00* Test Item Value Reference Range Interpretation Comments Eosinophils (%) (Auto) (test code = 713-8) 1.8 0.0-6.0 [facility] CenterAutomated blood basophil count as percentage of total tfjovsrrrm4448-69-21 04:55:00* Test Item Value Reference Range Interpretation Comments Basophils (%) (Auto) (test code = 706-2) 0.2 0.0-1.0 [facility] CenterFluoroscopic procedure less than one hour nyucgwfe6917-15-42 04:55:00* Test Item Value Reference Range Interpretation Comments IM GRANULOCYTES % (test code = IM GRANULOCYTES %) 0.6 0.0- 1.0 [facility] CenterAutomated blood neutrophil count 2019-08-25 04:55:00* Test Item Value Reference Range Interpretation Comments Neutrophils # (Auto) (test code = 751-8) 2.6 2.1-6.9 [facility] CenterBlood lymphocytes count (number/volume) 2019-08-25 04:55:00* Test Item Value Reference Range Interpretation Comments Lymphocytes # (Auto) (test code = 37513-7) 1.9 1.0-3.2 [facility] CenterBlood monocytes automated count (number/volume)2019-08-25 04:55:00* Test Item Value Reference Range Interpretation Comments Monocytes # (Auto) (test code = 742-7) 0.3 0.2-0.8 [facility] CenterAutomated blood eosinophil count 2019-08-25 04:55:00* Test Item Value Reference Range Interpretation Comments Eosinophils # (Auto) (test code = 711-2) 0.1 0.0-0.4 [facility] CenterAutomated blood basophil count (count/volume)2019-08-25 04:55:00* Test Item Value Reference Range Interpretation Comments Basophils # (Auto) (test code = 704-7) 0.0 0.0-0.1 [facility] CenterFluoroscopic procedure less than one hour icmjxxqe6270-43-33 04:55:00* Test Item Value Reference Range Interpretation Comments Absolute Immature Granulocyte (auto (yonis t code = Absolute Immature Granulocyte (auto) 0.03 0-0.1 [facility]ererum or plasma sodium measurement (moles/volume)2019-08-25 04:55:00* Test Item Value Reference Range Interpretation Comments Sodium Level (test code = 2951-2) 139 136-145 [facility] Centererum or plasma potassium measurement (moles/volume)2019-08-25 04:55:00* Test Item Value Reference Range Interpretation Comments Potassium Level (test code = 2823-3) 3.9 3.5-5.1 [facility] Centererum or plasma chloride measurement (moles/volume)2019-08-25 04:55:00* Test Item Value Reference Range Interpretation Comments Chloride Level (test code = 2075-0) 108 98-107 [facility] Centererum or plasma carbon dioxide, total measurement (moles/volume)2019-08-25 04:55:00* Test Item Value Reference Range Interpretation Comments Carbon Dioxide Level (test code = 2028-9) 28 22-29 [facility] Centererum or plasma anion esz2913-32-80 04:55:00* Test Item Value Reference Range Interpretation Comments Anion Gap (test code = 24832-2) 6.9 8-16 [facility]ererum or plasma urea nitrogen measurement (mass/volume)2019-08-25 04:55:00* Test Item Value Reference Range Interpretation Comments Blood Urea Nitrogen (test code = 3094-0) 14 7-26 [facility] Centererum or plasma creatinine measurement (mass/volume)2019-08-25 04:55:00* Test Item Value Reference Range Interpretation Comments Creatinine (test code = 2160-0) 0.77 0.57-1.11 [facility] Centererum or plasma urea nitrogen/creatinine mass iwwyb8266-23-35 04:55:00* Test Item Value Reference Range Interpretation Comments BUN/Creatinine Ratio (test code = 3097-3) 18 6-25 [facility] CenterEstimated glomerular filtration rate (GFR) isydfasvbsuem0676-16-75 04:55:00* Test Item Value Reference Range Interpretation Comments Estimat Glomerular Filtration Rate (test code = 862198180) > 60 >60 Ranges were taken from the National Kidney Disease Education Program and the [facility] [employer] [employer] literature.Reference ranges:60 or greater: Axxeuk12-37 ( for 3 consecutive months): Chronic kidney disease 15 or less: Kidney failureBig [facility] Medical CenterGlucose dzfebsglxdb4558-84-21 04:55:00* Test Item Value Reference Range Interpretation Comments Glucose Level (test code = NCF4986) 245 74-118 [facility] Centererum or plasma calcium measurement (mass/volume)2019-08-25 04:55:00* Test Item Value Reference Range Interpretation Comments Calcium Level (test code = 39681-0) 8.7 8.4-10.2 [facility] Centererum or plasma magnesium measurement (mass/volume)2019-08-25 04:55:00* Test Item Value Reference Range Interpretation Comments Magnesium Level (test code = 22337-7) 1.7 1.3-2.1 [facility] CenterThyroid Stimulating Hormone (TSH) 2019-08-24 04:52:00* Test Item Value Reference Range Interpretation Comments Thyroid Stimulating Hormone (TSH) (test code = 56522-6) 3.016 0.350-4.940 [facility] CenterHemoglobin A1c Dnnbcob8110-71-28 04:25:00 * Test Item Value Reference Range Interpretation Comments Hemoglobin A1c Percent (test code = Hemoglobin A1c Percent) 9.9 4.0-7.0 H [facility] CenterPhosphorus Cqipo8661-79-76 04:24:00* Test Item Value Reference Range Interpretation Comments Phosphorus Level (test code = FKO3149) 2.9 2.3-4.7 [facility] CenterTotal Pfudkeuli0806-87-48 04:24:00* Test Item Value Reference Range Interpretation Comments Total Bilirubin (test code = 1975-2) 0.3 0.2-1.2 [facility] CenterAspartate Amino Transf (AST/SGOT) 2019-08-24 04:24:00* Test Item Value Reference Range Interpretation Comments Aspartate Amino Transf (AST/SGOT) (test code = Aspartate Amino Transf (AST/SGOT)) 11 5-34 [facility] CenterAlanine Aminotransferase (ALT/SGPT) 2019-08-24 04:24:00* Test Item Value Reference Range Interpretation Comments Alanine Aminotransferase (ALT/SGPT) (test code = 1742-6) 7 0-55 [facility] CenterTotal Deraoay6836-98-37 04:24:00* Test Item Value Reference Range Interpretation Comments Total Protein (test code = 2885-2) 5.6 6.5-8.1 L VERIFIED PREVIOUS RESULTSBig [facility] Medical CenterAlbumin 2019-08-24 04:24:00* Test Item Value Reference Range Interpretation Comments Albumin (test code = 1751-7) 3.0 3.5-5.0 L VERIFIED PREVIOUS RESULTSBig [facility] Medical CenterGlobulin 2019-08-24 04:24:00* Test Item Value Reference Range Interpretation Comments Globulin (test code = 38607-3) 2.6 2.3-3.5 [facility] CenterAlbumin/Globulin Kcsdf4490-70-70 04:24:00 * Test Item Value Reference Range Interpretation Comments Albumin/Globulin Ratio (test code = 1759-0) 1.2 0.8-2.0 [facility] CenterAlkaline Hdqhnbiscbt5886-98-96 04:24:00* Test Item Value Reference Range Interpretation Comments Alkaline Phosphatase (test code = 6768-6) 76 40-150 [facility] CenterTriglycerides Iswnx2393-23-57 04:24:00* Test Item Value Reference Range Interpretation Comments Triglycerides Level (test code = 2571-8) 145 0-149 [facility] CenterCholesterol Nsmps1796-02-22 04:24:00* Test Item Value Reference Range Interpretation Comments Cholesterol Level (test code = 2093-3) 166 0-199 Less than 200 mg/dL Low Fplh230 - 239 mg/dL Borderline Kpip569 m g/dl and greater High Risk [facility] CenterLDL Agzslufhpdi4147-55-87 04:24:00* Test Item Value Reference Range Interpretation Comments LDL Cholesterol (test code = 2089-1) 105 60-130 [facility] CenterHDL Ixldneyjngu4185-62-04 04:24:00* Test Item Value Reference Range Interpretation Comments HDL Cholesterol (test code = 2085-9) 32 40-60 L [facility] CenterCholesterol/HDL Sikur2736-81-57 04:24:00 * Test Item Value Reference Range Interpretation Comments Cholesterol/HDL Ratio (test code = 9830-1) 5.2 3.0-3.6 H [facility] CenterFluoroscopic procedure less than one hour eczoxwfz5234-85-12 03:10:00* Test Item Value Reference Range Interpretation Comments Hemoglobin A1c Percent (test code = Hemoglobin A1c Percent) 9.9 4.0-7.0 [facility] CenterPhosphorus rbbyphgtalz1438-88-53 03:10:00 * Test Item Value Reference Range Interpretation Comments Phosphorus Level (test code = YBF5082) 2.9 2.3-4.7 [facility] Centererum or plasma total bilirubin measurement (mass/volume)2019-08-24 03:10:00* Test Item Value Reference Range Interpretation Comments Total Bilirubin (test code = 1975-2) 0.3 0.2-1.2 [facility] CenterFluoroscopic procedure less than one hour modzsrku9018-86-84 03:10:00* Test Item Value Reference Range Interpretation Comments Aspartate Amino Transf (AST/SGOT) (test code = Aspartate Amino Transf (AST/SGOT)) 11 5-34 [facility] Centererum or plasma alanine aminotransferase measurement (enzymatic activity/volume)2019-08-24 03:10:00* Test Item Value Reference Range Interpretation Comments Alanine Aminotransferase (ALT/SGPT) (test code = 1742-6) 7 0-55 [facility] Centererum or plasma protein measurement (mass/volume)2019-08-24 03:10:00* Test Item Value Reference Range Interpretation Comments Total Protein (test code = 2885-2) 5.6 6.5-8.1 VERIFIED PREVIOUS RESULTSGraham Regional Medical Centererum or plasma albumin measurement (mass/volume)2019-08-24 03:10:00* Test Item Value Reference Range Interpretation Comments Albumin (test code = 1751-7) 3.0 3.5-5.0 VERIFIED PREVIOUS RESULTSBig [facility] Medical CenterPlasma globulin measurement (mass/volume)2019-08-24 03:10:00* Test Item Value Reference Range Interpretation Comments Globulin (test code = 04853-3) 2.6 2.3-3.5 [facility] Centererum or plasma albumin/globulin mass klalw3426-69-50 03:10:00* Test Item Value Reference Range Interpretation Comments Albumin/Globulin Ratio (test code = 1759-0) 1.2 0.8-2.0 [facility] Centererum or plasma alkaline phosphatase measurement (enzymatic activity/volume)2019-08-24 03:10:00* Test Item Value Reference Range Interpretation Comments Alkaline Phosphatase (test code = 6768-6) 76 40-150 [facility] Centererum or plasma triglyceride measurement (mass/volume)2019-08-24 03:10:00* Test Item Value Reference Range Interpretation Comments Triglycerides Level (test code = 2571-8) 145 0-149 [facility] Centererum or plasma cholesterol measurement (mass/volume)2019-08-24 03:10:00* Test Item Value Reference Range Interpretation Comments Cholesterol Level (test code = 2093-3) 166 0-199 Less than 200 mg/dL Low Yooj920 - 239 mg/dL Borderline Menm148 m g/dl and greater High Risk [facility] Centererum or plasma cholesterol in LDL measurement (mass/volume) 2019-08-24 03:10:00* Test Item Value Reference Range Interpretation Comments LDL Cholesterol (test code = 2089-1) 105 60-130 [facility] Centererum or plasma cholesterol in HDL measurement (mass/volume)2019-08-24 03:10:00* Test Item Value Reference Range Interpretation Comments HDL Cholesterol (test code = 2085-9) 32 40-60 [facility] Centererum or plasma total cholesterol/cholesterol in HDL mass cuvtb8505-42-18 03:10:00* Test Item Value Reference Range Interpretation Comments Cholesterol/HDL Ratio (test code = 9830-1) 5.2 3.0-3.6 [facility] Centererum or plasma thyrotropin measurement by detection limit <= 0.005 miu/l (units/volume)2019-08-24 03:10:00* Test Item Value Reference Range Interpretation Comments Thyroid Stimulating Hormone (TSH) (test code = 19661-1) 3.016 0.350-4.940 [facility] CenterCT ABDOMEN/PELVIS HS9090-57-32 02:37:00 [facility] [address] [address] Patient Name: PAOLA STILES MR #: [id number] : [birth year] Age/Sex: 64/F Req #: [id number] Adm Physician: Ordered by: JUSTIN MARAVILLA MD Report #: [id number] Location: ER Room/Bed: Procedure: 0314-[address]/CT [...] Time (test code = 5902-2) 12.6 11.9-14.5 [facility] CenterProthromb Time International Ratio 2019-08-23 00:03:00* Test Item Value Reference Range Interpretation Comments Prothromb Time International Ratio (test code = 6301-6) 0.89 Oral Anticoagulant Therapy INR Values:1. Low Intensity Therapy 1.5 - 2.02 . Moderate Intensity Therapy 2.0 - 3.03. High Intensity Therapy(1) 2.5 - 3. 54. High Intensity Therapy(2) 3.0 - 4.05. Panic Value INR > 5.0 [facility] CenterActivated Partial Thromboplast Time 2019-08-23 00:03:00* Test Item Value Reference Range Interpretation Comments Activated Partial Thromboplast Time (test code = 20154-2) 28.9 23.8-35.5 [facility] CenterBacterial urine fmojtdg7495-47-82 00:00:00* Test Item Value Reference Range Interpretation Comments Urine Culture (test code = 630-4) ESCHERICHIA COLI [facility] CenterCreatine Kinase BG1966-15-70 23:55:00* Test Item Value Reference Range Interpretation Comments Creatine Kinase MB (test code = 93183-4) 1.00 0-5.0 [facility] CenterTroponin F4262-90-52 23:55:00* Test Item Value Reference Range Interpretation Comments Troponin I (test code = ALK7027) 0.010 0-0.300 [facility] CenterCreatine Opoljk0833-95-73 23:52:00* Test Item Value Reference Range Interpretation Comments Creatine Kinase (test code = 2157-6) 19 29-168 L [facility] CenterAmylase Gbdet3060-23-17 23:46:00* Test Item Value Reference Range Interpretation Comments Amylase Level (test code = 1798-8) 65 25-125 [facility] CenterLipase2020-03-14 23:46:00* Test Item Value Reference Range Interpretation Comments Lipase (test code = 3040-3) 13 8-78 [facility] CenterUrine UXV8247-60-69 23:45:00* Test Item Value Reference Range Interpretation Comments Urine WBC (test code = 5821-4) 21-50 0-5 H [facility] CenterUrine KKI0027-15-90 23:45:00* Test Item Value Reference Range Interpretation Comments Urine RBC (test code = 26393-5) 0-5 0-5 [facility] CenterUrine Cfwlaeut3375-84-05 23:45:00* Test Item Value Reference Range Interpretation Comments Urine Bacteria (test code = 80053-1) MANY NONE H [facility] CenterUrine Epithelial Lyibc1801-86-01 23:45:00 * Test Item Value Reference Range Interpretation Comments Urine Epithelial Cells (test code = 06669-6) FEW NONE [facility] CenterUrine Vuubp8967-88-74 23:40:00* Test Item Value Reference Range Interpretation Comments Urine Color (test code = 5778-6) YELLOW YELLOW [facility] CenterUrine Xevtqkj6339-71-66 23:40:00* Test Item Value Reference Range Interpretation Comments Urine Clarity (test code = 74835-3) CLEAR CLEAR [facility] CenterUrine Specific Iryrmtj1424-87-89 23:40:00 * Test Item Value Reference Range Interpretation Comments Urine Specific [place] (test code = 5811-5) 1.025 1.010-1.02 5 [facility] CenterUrine dY1828-56-24 23:40:00* Test Item Value Reference Range Interpretation Comments Urine pH (test code = 78629-5) 6 5-7 [facility] CenterUrine Leukocyte Kyehozsn9652-89-20 23:40:00* Test Item Value Reference Range Interpretation Comments Urine Leukocyte Esterase (test code = 5799-2) NEGATIVE NEGATIVE [facility] CenterUrine Fhkpanv8116-17-35 23:40:00* Test Item Value Reference Range Interpretation Comments Urine Nitrite (test code = 31203-3) NEGATIVE NEGATIVE [facility] CenterUrine Mafkccq7526-92-74 23:40:00* Test Item Value Reference Range Interpretation Comments Urine Protein (test code = 5804-0) TRACE NEGATIVE H [facility] CenterUrine Glucose (UA)2019-08-22 23:40:00* Test Item Value Reference Range Interpretation Comments Urine Glucose (UA) (test code = 2349-9) 3+ NEGATIVE H [facility] CenterUrine Mbwsawz9294-93-76 23:40:00* Test Item Value Reference Range Interpretation Comments Urine Ketones (test code = 96903-0) 1+ NEGATIVE H [facility] CenterUrine Ycxpvznidlua3533-84-87 23:40:00* Test Item Value Reference Range Interpretation Comments Urine Urobilinogen (test code = 56809-1) 0.2 0.2-1 [facility] CenterUrine Feaidiewx2615-31-69 23:40:00* Test Item Value Reference Range Interpretation Comments Urine Bilirubin (test code = 1978-6) NEGATIVE NEGATIVE [facility] CenterUrine Nrrar4320-86-36 23:40:00* Test Item Value Reference Range Interpretation Comments Urine Blood (test code = 17676-3) TRACE NEGATIVE H [facility] CenterProthrombin time (PT) in platelet poor plasma by coagulation skfcr3965-22-06 23:21:00* Test Item Value Reference Range Interpretation Comments Prothrombin Time (test code = 5902-2) 12.6 11.9-14.5 [facility] CenterINR in Platelet poor plasma by Coagulation nihlw8046-80-10 23:21:00* Test Item Value Reference Range Interpretation Comments Prothromb Time International Ratio (test code = 6301-6) 0.89 Oral Anticoagulant Therapy INR Values:1. Low Intensity Therapy 1.5 - 2.02 . Moderate Intensity Therapy 2.0 - 3.03. High Intensity Therapy(1) 2.5 - 3. 54. High Intensity Therapy(2) 3.0 - 4.05. Panic Value INR > 5.0 [facility] CenterActivated partial thromboplastin time (aPTT) in platelet poor plasma by coagulation xrmni7559-87-59 23:21:00* Test Item Value Reference Range Interpretation Comments Activated Partial Thromboplast Time (test code = 88110-7) 28.9 23.8-35.5 [facility] Centererum or plasma creatine kinase measurement (enzymatic activity/volume)2019-08-22 23:02:00* Test Item Value Reference Range Interpretation Comments Creatine Kinase (test code = 2157-6) 19 29-168 [facility] Centererum or plasma creatine kinase MB measurement (mass/volume)2019-08-22 23:02:00* Test Item Value Reference Range Interpretation Comments Creatine Kinase MB (test code = 60147-7) 1.00 0-5.0 [facility] CenterTroponin I measurement by highly sensitive enzyme ronldchkurf2834-69-56 23:02:00* Test Item Value Reference Range Interpretation Comments Troponin I (test code = 07406-0) 0.010 0-0.300 [facility] Centererum or plasma amylase measurement (enzymatic activity/volume)2019-08-22 23:02:00* Test Item Value Reference Range Interpretation Comments Amylase Level (test code = 1798-8) 65 25-125 [facility] Centererum or plasma lipase measurement (enzymatic activity/volume)2019-08-22 23:02:00* Test Item Value Reference Range Interpretation Comments Lipase (test code = 3040-3) 13 8-78 [facility] CenterBlood Edrcilh3639-87-71 00:46:00* Test Item Value Reference Range Interpretation Comments Blood Culture (test code = 85929491) NO GROWTH AFTER 5 DAYS, FINAL REPORT [facility] CenterBedside Oafkmki1605-73-64 11:24:00* Test Item Value Reference Range Interpretation Comments Bedside Glucose (test code = 91171-2) 291 70-120 H Meter ID: [id number] [facility] Regional Medical CenterUrine Culture 2019-04-20 09:14:00* Test Item Value Reference Range Interpretation Comments Urine Culture (test code = 630-4) No Result Data Provided [facility] Centerodium Lfnnb1459-45-91 07:45:00* Test Item Value Reference Range Interpretation Comments Sodium Level (test code = 2951-2) 138 136-145 [facility] CenterPotassium Ybdxf9040-79-53 07:45:00* Test Item Value Reference Range Interpretation Comments Potassium Level (test code = 2823-3) 3.9 3.5-5.1 [facility] CenterChloride Sdzyn6355-44-95 07:45:00* Test Item Value Reference Range Interpretation Comments Chloride Level (test code = 2075-0) 101 98-107 [facility] CenterCarbon Dioxide Swtdb9627-83-79 07:45:00* Test Item Value Reference Range Interpretation Comments Carbon Dioxide Level (test code = 2028-9) 32 22-29 H [facility] CenterAnion Hme9336-77-67 07:45:00* Test Item Value Reference Range Interpretation Comments Anion Gap (test code = 93138-4) 8.9 8-16 [facility] CenterBlood Urea Obojnimc8102-41-98 07:45:00* Test Item Value Reference Range Interpretation Comments Blood Urea Nitrogen (test code = 3094-0) 11 7-26 [facility] CenterCreatinine2019-11-11 07:45:00* Test Item Value Reference Range Interpretation Comments Creatinine (test code = 2160-0) 0.76 0.57-1.11 [facility] CenterBUN/Creatinine Rarie6580-40-57 07:45:00* Test Item Value Reference Range Interpretation Comments BUN/Creatinine Ratio (test code = 3097-3) 14 6-25 [facility] CenterEstimat Glomerular Filtration Rate 2019-04-20 07:45:00* Test Item Value Reference Range Interpretation Comments Estimat Glomerular Filtration Rate (test code = 796050747) > 60 >60 Ranges were taken from the National Kidney Disease Education Program and the [facility] health[facility] Kidney Foundation literature.Reference ranges:60 or greater: Pcttfm10-98 ( for 3 consecutive months): Chronic kidney disease 15 or less: Kidney failureBig [facility] Medical CenterGlucose Qzhmf3039-01-94 07:45:00* Test Item Value Reference Range Interpretation Comments Glucose Level (test code = IQT9637) 318 74-118 H [facility] CenterCalcium Mbgef2763-68-40 07:45:00* Test Item Value Reference Range Interpretation Comments Calcium Level (test code = 05348-7) 9.0 8.4-10.2 [facility] CenterWhite Blood Ysvcw7084-93-81 07:29:00* Test Item Value Reference Range Interpretation Comments White Blood Count (test code = 6690-2) 3.56 4.8-10.8 L [facility] CenterRed Blood Srqnn2771-65-60 07:29:00* Test Item Value Reference Range Interpretation Comments Red Blood Count (test code = 789-8) 4.22 3.6-5.1 [facility] CenterHemoglobin2019-11-11 07:29:00* Test Item Value Reference Range Interpretation Comments Hemoglobin (test code = 86366-1) 12.3 12.0-16.0 [facility] CenterHematocrit2019-11-11 07:29:00* Test Item Value Reference Range Interpretation Comments Hematocrit (test code = 4544-3) 37.0 34.2-44.1 [facility] CenterMean Corpuscular Kfuetw2354-73-53 07:29:00* Test Item Value Reference Range Interpretation Comments Mean Corpuscular Volume (test code = 787-2) 87.7 81-99 [facility] CenterMean Corpuscular Spczbqlxul1937-11-78 07:29:00* Test Item Value Reference Range Interpretation Comments Mean Corpuscular Hemoglobin (test code = 785-6) 29.1 28-32 [facility] CenterMean Corpuscular Hemoglobin Concent 2019-04-20 07:29:00* Test Item Value Reference Range Interpretation Comments Mean Corpuscular Hemoglobin Concent (test code = 786-4) 33.2 31-35 [facility] CenterRed Cell Distribution Dbwwj2885-00-44 07:29:00* Test Item Value Reference Range Interpretation Comments Red Cell Distribution Width (test code = 19985-9) 12.5 11.7 -14.4 [facility] CenterPlatelet Tvnhu6284-82-63 07:29:00* Test Item Value Reference Range Interpretation Comments Platelet Count (test code = 777-3) 188 140-360 [facility] CenterNeutrophils (%) (Auto)2019-04-20 07:29:00 * Test Item Value Reference Range Interpretation Comments Neutrophils (%) (Auto) (test code = 48700-0) 45.2 38.7-80.0 [facility] CenterLymphocytes (%) (Auto)2019-04-20 07:29:00 * Test Item Value Reference Range Interpretation Comments Lymphocytes (%) (Auto) (test code = 736-9) 42.4 18.0-39.1 H [facility] CenterMonocytes (%) (Auto)2019-04-20 07:29:00* Test Item Value Reference Range Interpretation Comments Monocytes (%) (Auto) (test code = 5905-5) 9.8 4.4-11.3 [facility] CenterEosinophils (%) (Auto)2019-04-20 07:29:00 * Test Item Value Reference Range Interpretation Comments Eosinophils (%) (Auto) (test code = 713-8) 1.7 0.0-6.0 [facility] CenterBasophils (%) (Auto)2019-04-20 07:29:00* Test Item Value Reference Range Interpretation Comments Basophils (%) (Auto) (test code = 706-2) 0.6 0.0-1.0 [facility] CenterIM GRANULOCYTES %2019-04-20 07:29:00* Test Item Value Reference Range Interpretation Comments IM GRANULOCYTES % (test code = IM GRANULOCYTES %) 0.3 0.0- 1.0 [facility] CenterNeutrophils # (Auto)2019-04-20 07:29:00* Test Item Value Reference Range Interpretation Comments Neutrophils # (Auto) (test code = 751-8) 1.6 2.1-6.9 L [facility] CenterLymphocytes # (Auto)2019-04-20 07:29:00* Test Item Value Reference Range Interpretation Comments Lymphocytes # (Auto) (test code = 68218-0) 1.5 1.0-3.2 [facility] CenterMonocytes # (Auto)2019-04-20 07:29:00* Test Item Value Reference Range Interpretation Comments Monocytes # (Auto) (test code = 742-7) 0.4 0.2-0.8 [facility] CenterEosinophils # (Auto)2019-04-20 07:29:00* Test Item Value Reference Range Interpretation Comments Eosinophils # (Auto) (test code = 711-2) 0.1 0.0-0.4 [facility] CenterBasophils # (Auto)2019-04-20 07:29:00* Test Item Value Reference Range Interpretation Comments Basophils # (Auto) (test code = 704-7) 0.0 0.0-0.1 [facility] CenterAbsolute Immature Granulocyte (auto 2019-04-20 07:29:00* Test Item Value Reference Range Interpretation Comments Absolute Immature Granulocyte (auto (yonis t code = Absolute Immature Granulocyte (auto) 0.01 0-0.1 [facility] CenterBlood Qnypbci9573-00-12 00:46:00* Test Item Value Reference Range Interpretation Comments Blood Culture (test code = 25146521) NO GROWTH AFTER 48 HOURS [facility] CenterTotal Slstamyvt9470-98-32 01:56:00* Test Item Value Reference Range Interpretation Comments Total Bilirubin (test code = 1975-2) 0.3 0.2-1.2 [facility] CenterAspartate Amino Transf (AST/SGOT) 2019-04-19 01:56:00* Test Item Value Reference Range Interpretation Comments Aspartate Amino Transf (AST/SGOT) (test code = Aspartate Amino Transf (AST/SGOT)) 11 5-34 [facility] [facility] ([facility]/SGPT) 2019-04-19 01:56:00* Test Item Value Reference Range Interpretation Comments Alanine Aminotransferase (ALT/SGPT) (test code = 1742-6) 6 0-55 [facility] CenterTotal Cspcdfz3855-46-06 01:56:00* Test Item Value Reference Range Interpretation Comments Total Protein (test code = 2885-2) 5.7 6.5-8.1 L VERIFIED PREVIOUS RESULTSBig [facility] CenterAlbumin 2019-04-19 01:56:00* Test Item Value Reference Range Interpretation Comments Albumin (test code = 1751-7) 2.9 3.5-5.0 L [facility] CenterGlobulin2019-11-10 01:56:00* Test Item Value Reference Range Interpretation Comments Globulin (test code = 06318-7) 2.8 2.3-3.5 [facility] CenterAlbumin/Globulin Nrkex6823-50-92 01:56:00 * Test Item Value Reference Range Interpretation Comments Albumin/Globulin Ratio (test code = 1759-0) 1.0 0.8-2.0 [facility] CenterAlkaline Qkrxchcebkx7013-57-94 01:56:00* Test Item Value Reference Range Interpretation Comments Alkaline Phosphatase (test code = 6768-6) 74 40-150 [facility] CenterCreatine Tzrcdn8549-08-74 16:33:00* Test Item Value Reference Range Interpretation Comments Creatine Kinase (test code = 2157-6) 16 29-168 L [facility] CenterCreatine Kinase GB0075-25-90 16:33:00* Test Item Value Reference Range Interpretation Comments Creatine Kinase MB (test code = 71951-8) 0.60 0-5.0 [facility] CenterTroponin C9093-51-40 16:33:00* Test Item Value Reference Range Interpretation Comments Troponin I (test code = WRY1213) < 0.001 0-0.300 [facility] CenterHemoglobin A1c Wnzrvsy1511-71-94 10:28:00 * Test Item Value Reference Range Interpretation Comments Hemoglobin A1c Percent (test code = Hemoglobin A1c Percent) 11.2 4.0-7.0 H [facility] CenterLactic Acid Suqjt1230-04-87 07:24:00* Test Item Value Reference Range Interpretation Comments Lactic Acid Level (test code = Lactic Acid Level) 0.8 0.5- 2.0 [facility] CenterLactic Acid Shezm2309-51-19 07:24:00* Test Item Value Reference Range Interpretation Comments Lactic Acid Level (test code = Lactic Acid Level) 0.8 0.5- 2.0 [facility] CenterFluoroscopic procedure less than one hour xqtwaubz7223-34-79 05:55:00* Test Item Value Reference Range Interpretation Comments Lactic Acid Level (test code = Lactic Acid Level) 0.8 0.5- 2.0 [facility] CenterB-Type Natriuretic Ybvjkve8107-11-56 03:21:00* Test Item Value Reference Range Interpretation Comments B-Type Natriuretic Peptide (test code = 45271-9) 43.9 0-100 [facility] CenterB-Type Natriuretic Kbqttlq1741-88-65 03:21:00* Test Item Value Reference Range Interpretation Comments B-Type Natriuretic Peptide (test code = 69586-4) 43.9 0-100 [facility] CenterUrine AHH3304-22-55 02:28:00* Test Item Value Reference Range Interpretation Comments Urine WBC (test code = 5821-4) 21-50 0-5 H [facility] CenterUrine DLX1736-87-04 02:28:00* Test Item Value Reference Range Interpretation Comments Urine RBC (test code = 47186-1) 6-10 0-5 H [facility] CenterUrine Movbsxrc3486-68-87 02:28:00* Test Item Value Reference Range Interpretation Comments Urine Bacteria (test code = 22883-2) MANY NONE H [facility] CenterUrine Epithelial Jrrqb6729-80-48 02:28:00 * Test Item Value Reference Range Interpretation Comments Urine Epithelial Cells (test code = 71318-0) MODERATE NONE [facility] CenterCT BRAIN AP8588-13-31 02:26:00 [facility] [address] [place] [address] Patient Name: PAOLA STILES MR #: [id number] : 1955 Age/Sex: 64/F Req #: [id number] Adm Physician: Ordered by: YOEL TORRES MD Report #: [id number] Location: Room/Bed: Procedure: [id number] CT/CT BRAIN WO Exam Date: 04/18/19 Exam [...] 0229 Transcribed By: ELDER on 04/18/19 0229 [employer] Y TO: YEOL TORRES MD Urine Qcuij9102-29-72 01:54:00* Test Item Value Reference Range Interpretation Comments Urine Color (test code = 5778-6) YELLOW YELLOW [facility] CenterUrine Evnarkq9577-93-75 01:54:00* Test Item Value Reference Range Interpretation Comments Urine Clarity (test code = 47545-1) CLEAR CLEAR [facility] CenterUrine Specific Tcekdll5435-71-61 01:54:00 * Test Item Value Reference Range Interpretation Comments Urine Specific [place] (test code = 5811-5) <=1.005 1.010-1.02 5 [facility] CenterUrine lW5533-90-71 01:54:00* Test Item Value Reference Range Interpretation Comments Urine pH (test code = 22485-1) 5.5 5-7 [facility] Leukocyte Itvwfpmu8719-90-01 01:54:00* Test Item Value Reference Range Interpretation Comments Urine Leukocyte Esterase (test code = 77508-9) NEGATIVE NEGATIV E [facility] CenterUrine Oblrpao3665-06-41 01:54:00* Test Item Value Reference Range Interpretation Comments Urine Nitrite (test code = 76758-0) POSITIVE NEGATIVE H [facility] CenterUrine Cxvuwyc6771-97-92 01:54:00* Test Item Value Reference Range Interpretation Comments Urine Protein (test code = 89711-7) NEGATIVE NEGATIVE [facility] CenterUrine Glucose (UA)2019-04-18 01:54:00* Test Item Value Reference Range Interpretation Comments Urine Glucose (UA) (test code = 55233-4) 3+ NEGATIVE H [facility] CenterUrine Ctmarsw2007-64-45 01:54:00* Test Item Value Reference Range Interpretation Comments Urine Ketones (test code = 00870-8) NEGATIVE NEGATIVE [facility] CenterUrine Hmdczhrfmnge2329-47-30 01:54:00* Test Item Value Reference Range Interpretation Comments Urine Urobilinogen (test code = 96702-8) 0.2 0.2-1 [facility] CenterUrine Qzslzivyr3901-11-69 01:54:00* Test Item Value Reference Range Interpretation Comments Urine Bilirubin (test code = 1977-8) NEGATIVE NEGATIVE [facility] CenterUrine Aoryd7176-73-27 01:54:00* Test Item Value Reference Range Interpretation Comments Urine Blood (test code = 47109-9) TRACE NEGATIVE [facility] Blood fK6649-70-50 01:51:00* Test Item Value Reference Range Interpretation Comments Arterial Blood pH (test code = 2744-1) 7.48 7.31-7.41 H [facility] CenterArterial Blood Partial Pressure CO2 2019-04-18 01:51:00* Test Item Value Reference Range Interpretation Comments Arterial Blood Partial Pressure CO2 (test code = 2019-01) 33 41-51 L [facility] CenterArterial Blood Partial Pressure O2 2019-04-18 01:51:00* Test Item Value Reference Range Interpretation Comments Arterial Blood Partial Pressure O2 (test code = 2018-) 106 80-105 H [facility] Blood SZC17091-37-47 01:51:00* Test Item Value Reference Range Interpretation Comments Arterial Blood HCO3 (test code = 1960-4) 25 23-28 [facility] Lfgcsz2211-98-15 01:51:00* Test Item Value Reference Range Interpretation Comments Arterial Blood Base Excess (test code = 1925-7) 1.0 -2-3 [facility] CenterArterial Blood Oxygen Saturation 2019-04-18 01:51:00* Test Item Value Reference Range Interpretation Comments Arterial Blood Oxygen Saturation (test code = 2708-6) 99.0 95-98 H [facility] CenterFiO22019-11-09 01:51:00* Test Item Value Reference Range Interpretation Comments FiO2 (test code = FiO2) 100 [facility] Blood hR2916-86-69 01:51:00* Test Item Value Reference Range Interpretation Comments Arterial Blood pH (test code = 2744-1) 7.48 7.31-7.41 H [facility] CenterArterial Blood Partial Pressure CO2 2019-04-18 01:51:00* Test Item Value Reference Range Interpretation Comments Arterial Blood Partial Pressure CO2 (test code = 2019-01) 33 41-51 L [facility] CenterArterial Blood Partial Pressure O2 2019-04-18 01:51:00* Test Item Value Reference Range Interpretation Comments Arterial Blood Partial Pressure O2 (test code = 2019-01) 106 80-105 H [facility] CenterArterial Blood JZS39229-76-60 01:51:00* Test Item Value Reference Range Interpretation Comments Arterial Blood HCO3 (test code = 1960-4) 25 23-28 [facility] CenterArterial Blood Base Ehrlmy1184-30-73 01:51:00* Test Item Value Reference Range Interpretation Comments Arterial Blood Base Excess (test code = 1925-7) 1.0 -2-3 [facility] CenterArterial Blood Oxygen Saturation 2019-04-18 01:51:00* Test Item Value Reference Range Interpretation Comments Arterial Blood Oxygen Saturation (test code = 2708-6) 99.0 95-98 H [facility] CenterFiO22019-11-09 01:51:00* Test Item Value Reference Range Interpretation Comments FiO2 (test code = FiO2) 100 [facility] CenterCHES SINGLE (PORTABLE)2019-04-18 01:45:00 [place] [address] Patient Name: PAOLA STILES MR #: [id number] : 1955 Age/Sex: 64/F Req #: [id number] Adm Physician: Ordered by: YOEL TORRES MD Report #: [id number] Location: ER Room/Bed: Procedure: [id number] DX/CH EST SINGLE (PORTABLE) Exam Date: 04/18/19 Exam [...] 04/18/19145 COPY TO: YOEL TORRES MD Prothrombin Tyok2274-66-76 01:24:00* Test Item Value Reference Range Interpretation Comments Prothrombin Time (test code = 5902-2) 12.2 11.9-14.5 [facility] CenterProthromb Time International Ratio 2019-04-18 01:24:00* Test Item Value Reference Range Interpretation Comments Prothromb Time International Ratio (test code = 6301-6) 0.86 Oral Anticoagulant Therapy INR Values:1. Low Intensity Therapy 1.5 - 2.02 . Moderate Intensity Therapy 2.0 - 3.03. High Intensity Therapy(1) 2.5 - 3. 54. High Intensity Therapy(2) 3.0 - 4.05. Panic Value INR > 5.0 [facility] CenterActivated Partial Thromboplast Time 2019-04-18 01:24:00* Test Item Value Reference Range Interpretation Comments Activated Partial Thromboplast Time (test code = 78933-4) 29.1 23.8-35.5 [facility] CenterMagnesium Ayxoe0486-12-49 01:23:00* Test Item Value Reference Range Interpretation Comments Magnesium Level (test code = 23073-6) 1.4 1.3-2.1 [facility] CenterArterial blood pH uzowiivjvty8245-65-62 23:26:00* Test Item Value Reference Range Interpretation Comments Arterial Blood pH (test code = 2744-1) 7.48 7.31-7.41 [facility] CenterpCO2 IiaU1911-08-62 23:26:00* Test Item Value Reference Range Interpretation Comments Arterial Blood Partial Pressure CO2 (test code = 2019-01) 33 41-51 [facility] CenterpCO2 LdjT2021-44-66 23:26:00* Test Item Value Reference Range Interpretation Comments Arterial Blood Partial Pressure O2 (test code = 2019-01) 106 80-105 [facility] CenterArterial blood bicarbonate measurement (moles/volume)2019-04-17 23:26:00* Test Item Value Reference Range Interpretation Comments Arterial Blood HCO3 (test code = 1960-4) 25 23-28 [facility] CenterArterial blood base excess by calculation 2019-04-17 23:26:00* Test Item Value Reference Range Interpretation Comments Arterial Blood Base Excess (test code = 1925-7) 1.0 -2-3 [facility] CenterArterial blood oxygen saturation hwgnayubysr1336-51-62 23:26:00* Test Item Value Reference Range Interpretation Comments Arterial Blood Oxygen Saturation (test code = 2708-6) 99.0 95-98 [facility] CenterFluoroscopic procedure less than one hour bsgryens3460-17-63 23:26:00* Test Item Value Reference Range Interpretation Comments FiO2 (test code = FiO2) 100 [facility] CenterBNP Ono-lIrm5242-35-08 22:50:00* Test Item Value Reference Range Interpretation Comments B-Type Natriuretic Peptide (test code = 95631-9) 43.9 0-100 [facility] CenterBlood kulkuzs5168-91-86 22:50:00* Test Item Value Reference Range Interpretation Comments Blood Culture (test code = 06596365) NO GROWTH AFTER 5 DAYS, FINAL REPORT [facility] CenterBedside Pipoljo4060-97-13 05:38:00* Test Item Value Reference Range Interpretation Comments Bedside Glucose (test code = 02457-8) 130 70-120 H Meter ID: [id number] Regional Medical Centerodium Level 2018-06-07 22:59:00* Test Item Value Reference Range Interpretation Comments Sodium Level (test code = 2951-2) 134 136-145 L [facility] CenterPotassium Gecbv9442-68-15 22:59:00* Test Item Value Reference Range Interpretation Comments Potassium Level (test code = 2823-3) 4.3 3.5-5.1 [facility] CenterChloride Vngmc3699-19-43 22:59:00* Test Item Value Reference Range Interpretation Comments Chloride Level (test code = 2075-0) 97 98-107 L [facility] CenterCarbon Dioxide Pmboc1119-10-29 22:59:00* Test Item Value Reference Range Interpretation Comments Carbon Dioxide Level (test code = 2028-9) 23 - [facility] CenterAnion Dhq5229-39-51 22:59:00* Test Item Value Reference Range Interpretation Comments Anion Gap (test code = 49784-5) 18.3 8-16 H [facility] CenterBlood Urea Rlxzwjns4174-65-79 22:59:00* Test Item Value Reference Range Interpretation Comments Blood Urea Nitrogen (test code = 3094-0) 20 7-26 [facility] CenterCreatinine2018-12-29 22:59:00* Test Item Value Reference Range Interpretation Comments Creatinine (test code = 2160-0) 1.49 0.57-1.11 H [facility] CenterBUN/Creatinine Yqztl4230-86-24 22:59:00* Test Item Value Reference Range Interpretation Comments BUN/Creatinine Ratio (test code = 3097-3) 13 6-25 [facility] CenterEstimat Glomerular Filtration Rate 2018-06-07 22:59:00* Test Item Value Reference Range Interpretation Comments Estimat Glomerular Filtration Rate (test code = 856491745) 35 >60 L Ranges were taken from the National Kidney Disease Education Program and the [facility] [employer] [employer] literature.Reference ranges:60 or greater: Qvpnrh47-16 ( for 3 consecutive months): Chronic kidney disease 15 or less: Kidney failureBig Bend Regional Medical CenterGlucose Glutm0752-79-72 22:59:00* Test Item Value Reference Range Interpretation Comments Glucose Level (test code = XCN7727) 710 74118 Results called to [rashid lucero rn/er] at 2258 on 06/07/18 by Carmen snow. LJ ELIZABETH.[facility] CenterCalcium Ncauk2300-38-14 22:59:00* Test Item Value Reference Range Interpretation Comments Calcium Level (test code = 99505-2) 9.5 8.4-10.2 [facility] CenterTotal Mpojgbqkz7380-01-71 22:59:00* Test Item Value Reference Range Interpretation Comments Total Bilirubin (test code = 1975-2) 0.6 0.2-1.2 [facility] CenterAspartate Amino Transf (AST/SGOT) 2018-06-07 22:59:00* Test Item Value Reference Range Interpretation Comments Aspartate Amino Transf (AST/SGOT) (test code = Aspartate Amino Transf (AST/SGOT)) 12 5-34 [facility] CenterAlanine Aminotransferase (ALT/SGPT) 2018-06-07 22:59:00* Test Item Value Reference Range Interpretation Comments Alanine Aminotransferase (ALT/SGPT) (test code = 1742-6) 22 0-55 [facility] Ponbfzr2197-21-48 22:59:00* Test Item Value Reference Range Interpretation Comments Total Protein (test code = 2885-2) 7.6 6.5-8.1 [facility] CenterAlbumin2018-12-29 22:59:00* Test Item Value Reference Range Interpretation Comments Albumin (test code = 1751-7) 4.0 3.5-5.0 [facility] CenterGlobulin2018-12-29 22:59:00* Test Item Value Reference Range Interpretation Comments Globulin (test code = 80263-5) 3.6 2.3-3.5 H [facility] CenterAlbumin/Globulin Oaacr5103-07-48 22:59:00 * Test Item Value Reference Range Interpretation Comments Albumin/Globulin Ratio (test code = 1759-0) 1.1 0.8-2.0 [facility] CenterAlkaline Huihiomkkvs8152-62-81 22:59:00* Test Item Value Reference Range Interpretation Comments Alkaline Phosphatase (test code = 6768-6) 145 40-150 [facility] CenterWhite Blood Udvdt1013-25-09 22:42:00* Test Item Value Reference Range Interpretation Comments White Blood Count (test code = 6690-2) 4.11 4.8-10.8 L [facility] CenterRed Blood Yscit0985-25-22 22:42:00* Test Item Value Reference Range Interpretation Comments Red Blood Count (test code = 789-8) 4.46 3.6-5.1 [facility] CenterHemoglobin2018-12-29 22:42:00* Test Item Value Reference Range Interpretation Comments Hemoglobin (test code = 57509-5) 12.8 12.0-16.0 [facility] CenterHematocrit2018-12-29 22:42:00* Test Item Value Reference Range Interpretation Comments Hematocrit (test code = 4544-3) 39.1 34.2-44.1 [facility] CenterMean Corpuscular Rnrpgy9160-89-59 22:42:00* Test Item Value Reference Range Interpretation Comments Mean Corpuscular Volume (test code = 787-2) 87.7 81-99 [facility] CenterMean Corpuscular Fvwmqjhqjw5639-87-03 22:42:00* Test Item Value Reference Range Interpretation Comments Mean Corpuscular Hemoglobin (test code = 785-6) 28.7 28-32 [facility] CenterMean Corpuscular Hemoglobin Concent 2018-06-07 22:42:00* Test Item Value Reference Range Interpretation Comments Mean Corpuscular Hemoglobin Concent (test code = 786-4) 32.7 31-35 [facility] CenterRed Cell Distribution Ebpju3593-43-99 22:42:00* Test Item Value Reference Range Interpretation Comments Red Cell Distribution Width (test code = 47263-1) 13.6 11.7 -14.4 [facility] CenterPlatelet Egugz2977-37-08 22:42:00* Test Item Value Reference Range Interpretation Comments Platelet Count (test code = 777-3) 198 140-360 [facility] CenterNeutrophils (%) (Auto)2018-06-07 22:42:00 * Test Item Value Reference Range Interpretation Comments Neutrophils (%) (Auto) (test code = 48175-8) 55.5 38.7-80.0 [facility] CenterLymphocytes (%) (Auto)2018-06-07 22:42:00 * Test Item Value Reference Range Interpretation Comments Lymphocytes (%) (Auto) (test code = 736-9) 34.8 18.0-39.1 [facility] CenterMonocytes (%) (Auto)2018-06-07 22:42:00* Test Item Value Reference Range Interpretation Comments Monocytes (%) (Auto) (test code = 5905-5) 5.8 4.4-11.3 [facility] CenterEosinophils (%) (Auto)2018-06-07 22:42:00 * Test Item Value Reference Range Interpretation Comments Eosinophils (%) (Auto) (test code = 713-8) 2.7 0.0-6.0 [facility] CenterBasophils (%) (Auto)2018-06-07 22:42:00* Test Item Value Reference Range Interpretation Comments Basophils (%) (Auto) (test code = 706-2) 0.7 0.0-1.0 [facility] CenterIM GRANULOCYTES %2018-06-07 22:42:00* Test Item Value Reference Range Interpretation Comments IM GRANULOCYTES % (test code = IM GRANULOCYTES %) 0.5 0.0- 1.0 [facility] CenterNeutrophils # (Auto)2018-06-07 22:42:00* Test Item Value Reference Range Interpretation Comments Neutrophils # (Auto) (test code = 751-8) 2.3 2.1-6.9 [facility] CenterLymphocytes # (Auto)2018-06-07 22:42:00* Test Item Value Reference Range Interpretation Comments Lymphocytes # (Auto) (test code = 73876-1) 1.4 1.0-3.2 [facility] CenterMonocytes # (Auto)2018-06-07 22:42:00* Test Item Value Reference Range Interpretation Comments Monocytes # (Auto) (test code = 742-7) 0.2 0.2-0.8 [facility] CenterEosinophils # (Auto)2018-06-07 22:42:00* Test Item Value Reference Range Interpretation Comments Eosinophils # (Auto) (test code = 711-2) 0.1 0.0-0.4 [facility] CenterBasophils # (Auto)2018-06-07 22:42:00* Test Item Value Reference Range Interpretation Comments Basophils # (Auto) (test code = 704-7) 0.0 0.0-0.1 [facility] CenterAbsolute Immature Granulocyte (auto 2018-06-07 22:42:00* Test Item Value Reference Range Interpretation Comments Absolute Immature Granulocyte (auto (yonis t code = Absolute Immature Granulocyte (auto) 0.02 0-0.1 [facility]
[2020-01-26] MEDS ORDERED: SODIUM CHLORIDE 0.9% 50ML 50 ML ONE (22:15)
[2020-01-26] MEDS ORDERED: IOPAMIDOL 370 MG/ML 200 ML INFUS..BTL INJ ONE (22:15)
--- NOTE | 2020-01-26 22:16 | NUR ---
PT'S DAUGHTER CALLED TO GET AN UPDATE- ANDREI [id number]
--- NOTE | 2020-01-26 22:57 | NUR ---
GAVE REPORT TO WILLIAM PARK FOR CONTINUITY OF CARE
[2020-01-26 23:05] LABS: BILIRUBIN,URINE NEGATIVE (NEGATIVE); CLARITY,URINE CLOUDY (CLEAR); COLOR,URINE YELLOW (YELLOW); KETONES,URINE 1+ (NEGATIVE); LEUKOCYTE ESTERASE ,URINE TRACE (NEGATIVE); NITRITE,URINE NEGATIVE (NEGATIVE); PROTEIN,URINE DIPSTICK NEGATIVE (NEGATIVE); URINE UROBILINOGEN 0.2 mg/dL (0.2 - 1)
--- NOTE | 2020-01-26 23:09 | NUR ---
ASSUMED CARE OF PATIENT AT THIS MOMENT
[2020-01-26 23:16] LABS: BACTERIA,URINE FEW /HPF; EPITHELIAL CELLS,URINE MODERATE /LPF; MUCUS,URINE MODERATE (RARE)
--- NOTE | 2020-01-27 00:03 | Diagnostic Imaging Report ---
EXAM: CT Abdomen and Pelvis WITH contrast INDICATION: Left upper quadrant pain. COMPARISON: Abdominal CT August 23, 2019. TECHNIQUE: Abdomen and pelvis were scanned utilizing a multidetector helical scanner from the lung base to the pubic symphysis after administration of IV contrast. Coronal and sagittal reformations were obtained. Routine protocol was performed. Scan was performed when during portal venous phase. IV CONTRAST: 100 mL of Isovue 370 ORAL CONTRAST: None COMPLICATIONS: None RADIATION DOSE: Total DLP: 696 mGy*cm Estimated effective dose: (DLP x 0.015 x size factor) mSv CTDIvol has been reviewed. It is below the limits set by the Radiation Protocol Committee (RPC). Dose modulation, iterative reconstruction, and/or weight based adjustment of the mA/kV was utilized to reduce the radiation dose to as low as reasonably achievable. FINDINGS: LINES and TUBES: None. LOWER THORAX: Mitral annular and aortic valve calcifications. Coronary calcifications. HEPATOBILIARY: A subcapsular hypodensity in the posterior aspect of the right hepatic dome, was also seen on 08/23/2019, likely an area of focal fat. No focal hepatic lesions. No biliary ductal dilation. GALLBLADDER: There are cholecystectomy clips. SPLEEN: Small wedge-shaped hypodensity in the spleen. PANCREAS: Fatty atrophy. No mass or duct dilation. ADRENALS: No adrenal nodules KIDNEYS/URETERS: Kidneys enhance symmetrically. No hydronephrosis. No cystic or solid mass lesions. No stones. GI TRACT: No abnormal distention, wall thickening, or evidence of bowel obstruction. Appendix is normal. PELVIC ORGANS/BLADDER: Unremarkable. LYMPH NODES: No lymphadenopathy. 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 Vascular calcifications. PERITONEUM / RETROPERITONEUM: No free air or fluid. BONES: Unremarkable. SOFT TISSUES: Unremarkable. 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 Coronary artery calcific atherosclerosis. Signed by: Paul Kang DO on 01/27/2020 12:00 AM
[2020-01-27] MEDS ORDERED: KETOROLAC TROMETHAMINE 30 MG/ML VIAL IV STA (00:12)
[2020-01-27 00:52] LABS: ANION GAP 15.3 mmol/L (8-16); BLOOD UREA NITROGEN 8 mg/dL (7-26); BUN/CREATININE RATIO 11 (6-25); CALCIUM 8.1 mg/dL (8.4-10.2); CARBON DIOXIDE 25 mmol/L (22-29); CHLORIDE 106 mmol/L (98-107); CREATININE, SERUM 0.74 mg/dL (0.57-1.11); EST GLOMERULAR FILTRATION RATE > 60 ML/MIN (60-); GLUCOSE 268 mg/dL (74-118); POTASSIUM 4.3 mmol/L (3.5-5.1); SODIUM 142 mmol/L (136-145)
[2020-01-27 01:07] VITALS: BP 118/53
--- NOTE | 2020-01-27 01:50 | Diagnostic Imaging Report ---
EXAMINATION: CHEST SINGLE (PORTABLE) INDICATION: Left chest pain COMPARISON: Chest x-ray 04/17/2019 FINDINGS: TUBES and LINES: None. LUNGS: Normal lung volumes. Lungs are clear. No consolidations. PLEURA: No pleural effusion or pneumothorax. HEART AND MEDIASTINUM: The cardiomediastinal silhouette is unremarkable. BONES AND SOFT TISSUES: No acute osseous lesion. Soft tissues are unremarkable. Cervical fixation hardware. UPPER ABDOMEN: No free air under the diaphragm. IMPRESSION: No acute thoracic radiographic abnormality. Signed by: Paul Kang DO on 01/27/2020 1:47 AM
== END 2020-01-27 01:28 | disposition home or self-care (01) ==
LOC: ER 20:57
DX: R07.89 Other chest pain (principal); S29.011A Strain of muscle and tendon of front wall of thorax, initial encounter; R10.12 Left upper quadrant pain; E11.65 Type 2 diabetes mellitus with hyperglycemia; E78.5 Hyperlipidemia, unspecified; G54.6 Phantom limb syndrome with pain
CPT/HCPCS: 36415; 71045; 74177; 80048; 80053; 81001; 82550; 82553; 84484; 85025; 93005; 99283; J1885; J2270; J2405; J7030; Q9967

== ENCOUNTER 2021-01-27 22:13 | Emergency (ER) | payer OTHER ==
[~2021-01-27] VITALS: Ht 157.5 cm; Wt 78.5 kg
[2021-01-28] MEDS ORDERED: KETOROLAC TROMETHAMINE 60 MG/2 ML VIAL ONE (00:07)
[2021-01-28] MEDS ORDERED: LIDOPATCH1 EACH TOP (00:26)
== END 2021-01-28 00:35 | disposition home or self-care (01) ==
LOC: FSED 01-28
DX: G54.6 Phantom limb syndrome with pain (principal); I10 Essential (primary) hypertension; E11.40 Type 2 diabetes mellitus with diabetic neuropathy, unspecified; E78.5 Hyperlipidemia, unspecified
CPT/HCPCS: 99282; J1885

== ENCOUNTER 2021-11-09 07:35 | Emergency (ER) | payer MEDICARE, OTHER ==
[~2021-11-09] VITALS: Ht 157.5 cm; Wt 81.6 kg
[~2021-11-09 07:35] MED LIST changes: +LIDOPATCH1 EACH TOP
[2021-11-09] MEDS ORDERED: IBUPROFEN 600 MG TAB PO STA (07:55)
[2021-11-09] MEDS ORDERED: GABAPENTIN300 MG PO (08:42)
== END 2021-11-09 09:01 | disposition home or self-care (01) ==
LOC: FSED 08:40
DX: M79.671 Pain in right foot (principal); M85.871 Other specified disorders of bone density and structure, right ankle and foot; E11.40 Type 2 diabetes mellitus with diabetic neuropathy, unspecified; Z89.512 Acquired absence of left leg below knee
CPT/HCPCS: 99283

== ENCOUNTER 2024-02-01 14:59 | Emergency (ER) | payer MEDICARE, OTHER ==
[~2024-02-01] VITALS: Ht 157.5 cm; Wt 81.6 kg
[~2024-02-01 14:59] MED LIST changes: +GABAPENTIN300 MG PO
[2024-02-01 15:15] VITALS: PULSE 78; RESP 18; TEMP 98.1
[2024-02-01] MEDS: HYDROCODONE/APAP 5MG-325MG TAB PO ONE (16:37)
[2024-02-01] MEDS ORDERED: HYDROCODON-ACE1 EA11 PO (18:35)
[2024-02-01 18:55] VITALS: BP 148/65; PULSE 78; RESP 18; TEMP 98; O2SAT 98
== END 2024-02-01 18:55 | disposition home or self-care (01) ==
LOC: FSED 15:14
DX: S22.000A Wedge compression fracture of unspecified thoracic vertebra, initial encounter for closed fracture (principal); S32.000A Wedge compression fracture of unspecified lumbar vertebra, initial encounter for closed fracture; W05.1XXA Fall from non-moving nonmotorized scooter, initial encounter; Y92.89 Other specified places as the place of occurrence of the external cause; E11.40 Type 2 diabetes mellitus with diabetic neuropathy, unspecified; Z89.512 Acquired absence of left leg below knee
CPT/HCPCS: 72131; 99283